=== PATIENT | male | born 1975 | race Caucasian/White ===

== ENCOUNTER 2023-03-14 09:34 | Emergency (ER) | payer OTHER, SELFPAY ==
[2023-03-14 09:44] VITALS: BP 129/99; PULSE 104; RESP 18; TEMP 36.1; O2SAT 6; BMI 23.4
[2023-03-14 09:52] VITALS: BP 129/99; PULSE 104; RESP 18; TEMP 36.7; O2SAT 96
[2023-03-14 11:31] VITALS: BP 133/95; PULSE 98; RESP 18; TEMP 36.7
--- NOTE | 2023-03-14 11:49 | ED_ITS ---
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 They are here because they do not really have any answers in his fatigue seems about the same in the last 48 hours he has had some nausea and some vomiting he has vomited up probably 4 times. No blood with the vomit this, no really abdominal pain associated with this and feels better after he throws up. Denies any change in his bowel habits there is no blood in his bowel habits, he has lost approximately 15 lb last 2 months. He does a lot of stress in his life both with his family and friends according to his , he drinks at least 3 beers per night, no use of drugs, he is being treated for hypertension, took 1 dose of Prilosec yesterday, and the aforementioned pravastatin. Denies any significant history of headaches, rashes, cough, dysuria frequency, joint swelling or pain, visual changes neurologic history of or tick bites. Related Data Home Medications Medication Instructions Recorded Confirmed lisinopril 10 mg tablet 10 mg PO DAILY 03/14/23 03/14/23 omeprazole magnesium 20 mg 20 mg PO DAILY 03/14/23 03/14/23 tablet,delayed release (Prilosec OTC) pravastatin 10 mg tablet 10 mg PO DAILY 03/14/23 03/14/23 Allergies Allergy/AdvReac Type Severity Reaction Status Date / Time EES Allergy Unknown Uncoded 03/14/23 09:51 Review of Systems Status of ROS: Reports: 10 or more systems reviewed and unremarkable except as noted in History and below PFSH PFS Social History Smoking Status: Former smoker Do you use any of these nicotine containing products: Vaping Products How often do you have a drink containing alcohol: 2-4 times a month How many standard drinks containing alcohol do you have on a typical day: 3 or 4 How often do you have six or more drinks on one occasion: Never AUDIT-C Alcohol total score: 3 Non-prescribed substance use: denies use service: No Exam Narrative: Exam Narrative: On examination he is in no apparent distress he follows my commands normally his vital signs are all stable, alert oriented x3 GCS is 15/15 pupils equal round reactive to light, there is no scleral icterus or redness, TMs bilaterally normal his oropharynx is a little bit reddened, but this is likely from vaping, which she does. There is no lymphadenopathy anterior posterior cervical changes, supraclavicular region axillary, or inguinal region. His chest is good air entry bilaterally with easy rise, there is no wheezing crackles noted heart sounds are normal, no clicks murmurs or gallops, his abdomen is soft there is absolutely no guarding no organomegaly bowel sounds are normal no hernias normal male genitalia normal testicles, he moves all extremities independently and well. Neurologically intact in his upper lower extremities, proximal distal is normal, slight tremors noted, but he tells me he has had that for a long time. Skin reveals no rashes. Const: Vital Signs, click to edit/add: Vital Signs - 24 hr 03/14/23 09:44 03/14/23 09:52 03/14/23 11:31 Temperature 97.0 F L 98.0 F 98.0 F Pulse Rate [Pulse Oximeter] 104 H 104 H 98 Respiratory Rate 18 18 18 Blood Pressure [Ri ght Upper Arm] 129/99 H 129/99 H 133/95 H Pulse Oximetry 6 L 96 Oxygen Delivery Me thod Room Air Room Air Course Course Hospital Course: Discussed with him and his , that I will do no further testing, his either really know what else to test for, in the emergency side situation, a follow-up with primary practice, or primary care is suggested, to go over some for other things, depression, fatigue, chronic fatigue, Lyme disease all can cause issues here, his thyroid was tested also new was normal. I do believe is alcohol cessation is strongly suggested rechecking his liver function tests in 2-3 weeks, would be appropriate. Vital Signs Vital signs: Initial Vital Signs Temperature 97.0 F L 03/14/23 09:44 Temperature Source Temporal Artery Scan 03/14/23 09:44 Pulse Rate 104 H 03/14/23 09:44 Pulse Rhythm Regular 03/14/23 09:44 Respiratory Rate 18 03/14/23 09:44 Blood Pressure 129/99 H 03/14/23 09:44 Blood Pressure Mean 109 H 03/14/23 09:44 Blood Pressure Position Sitting 03/14/23 09:44 Pulse Oximetry 6 L 03/14/23 09:44 Oxygen Delivery Method Room Air 03/14/23 09:44 Vital Signs Temperature 97.0 F L 03/14/23 09:44 Pulse Rate 104 H 03/14/23 09:44 Respiratory Rate 18 03/14/23 09:44 Blood Pressure 129/99 H 03/14/23 09:44 Pulse Oximetry 6 L 03/14/23 09:44 Oxygen Delivery Method Room Air 03/14/23 09:44 Temperature 98.0 F 03/14/23 11:31 Pulse Rate 98 03/14/23 11:31 Respiratory Rate 18 03/14/23 11:31 Blood Pressure 133/95 H 03/14/23 11:31 Pulse Oximetry 96 03/14/23 09:52 Oxygen Delivery Method Room Air 03/14/23 09:52 Medical Decision Making [facility] Narrative Medical decision making narrative: Life-threatening differential diagnosis considered include stroke, coronary artery disease, pneumonia, and heart failure. Other differential diagnosis include but are not limited to electrolyte imbalances, anemia, medication reactions, and urinary tract infection I reviewed his laboratory tests done yesterday in [facility] through his was able access is [facility]. His basic metabolic profile was normal, his EKG showed was otherwise normal, with a normal QT interval. He did not have evidence of Brugada syndrome which he tells me he was tested when he was young causes mother had that. I classically is a right bundle-branch block with elevation of V1 and V2 ST waves. His chest x-ray report was written is normal, he had normal hemoglobin normal white count, normal platelet count, his RDW was slightly low. His transaminases were elevated 3 times normal showing a ratio suggestive of alcohol. Medical Records Medical records reviewed: Yes I reviewed the patient's medical records Discharge Plan Discharge Clinical Impression: Fatigue, Unexplained weight loss, Acute alcoholic hepatitis Patient Disposition: Home w/ Parent or Adult Condition: Stable Instructions: Liver Disease Diet (DC), Liquids and Hydration for Athletes (ED), Fatigue (ED), Alcoholic Hepatitis (ED) Additional Instructions: So, recommendations are avoidance of alcohol because your ratio of your transaminases suggest that the liver is taking a hit from this. Your liver enzymes are 3 times normal. I would avoid alcohol and then recheck this in 2-3 weeks to see where you are. Recommend that she follow up with primary care, some of the other possibilities that we discussed include, depression, chronic fatigue syndrome, I do not see any evidence on examination cancer, but further follow-up will be needed. Use the Zofran as directed, the Prilosec 20 mg a day for the next month is also suggested Note for work written. Activity Level: Activity as Tolerated and Light activity Prescriptions: No Action pravastatin 10 mg tablet 10 mg PO DAILY lisinopril 10 mg tablet 10 mg PO DAILY omeprazole magnesium [Prilosec OTC] 20 mg tablet,delayed release (DR/EC) 20 mg PO DAILY Follow Up/Referrals: Dre Granger MD [Referring] - Jackelyn Granger MD [Referring] - Provider,Not a Local [Primary Care Provider] - Stand Alone Forms: [employer] Info Instructions
== END 2023-03-14 11:32 | disposition home or self-care (01) ==
PROVIDERS: Emergency Provider Family Medicine
DX: R53.83 Other fatigue (principal); K70.10 Alcoholic hepatitis without ascites
CPT/HCPCS: 99284

== ENCOUNTER 2023-03-17 08:37 | Observation (INO) | payer OTHER, SELFPAY ==
[2023-03-17] VITALS (29 sets, daily range): BP systolic 111–143; BP diastolic 68–96; PULSE 77–96; RESP 16–18; TEMP 36.5–37.2; O2SAT 94–99; BMI 23.4; BMI 23.9
--- NOTE | 2023-03-17 08:54 | ED_ITS ---
HPI - Dizziness General Time Seen by Provider: 08:54 Date Seen: 03/17/23 Chief Complaint: Dizziness/Vertigo Stated Complaint: dizzy, confused, numbness Time Seen by Provider: 03/17/23 08:54 Source: patient, RN notes reviewed and old records reviewed Mode of arrival: wheelchair Limitations: no limitations History of Present Illness HPI Narrative: Patient is a very pleasant 47-year-old gentleman with a history of longstanding alcohol use, recent unexplained weight loss, Brugada syndrome and fatigue who comes to the emergency room in [place] for continuing fatigue, tremulous limbs, and talking in his sleep as well as dizziness. Patient's notes that fatigue worsened on SaturdayMarch 12 where patient could not keep his eyes open. On SaturdayMarch 13 he was seen at [facility] at which time test showed an elevated thyroid as well as liver function tests. That night he began to experience vomiting and nausea any could not keep anything down. On March 14 he was seen here in the emergency room at [facility] at which time his liver function tests were reviewed with family. No medications or further testing was done at that time. Patient notes that he did receive Zofran in going home and that has certainly helped the vomiting and he has been able to keep p.o. down. Yesterday however he began experiencing whole body tremors and his said that he was having a hard time following conversations. She also noted that he was talking in his sleep which is unusual for him. Patient has also been hearing his call for him even though she has not. He denies any visual hallucinations. The belly pain that he had experienced last week has been improved with the use of Prilosec. Today however he does admit to diarrhea. Is main complaint today is dizziness when he is standing up. He does state that everything is moving when he stands up. He is also having a hard time walking because he feels so weak. Denies any specific side or limb weakness. No alcohol use since 08/13. Patient also notes that he has joint and whole body discomfort. He did take 1 THC gummy bear yesterday Related Data Home Medications Medication Instructions Recorded Confirmed lisinopril 10 mg tablet 10 mg PO DAILY 03/14/23 03/14/23 omeprazole magnesium 20 mg 20 mg PO DAILY 03/14/23 03/14/23 tablet,delayed release (Prilosec OTC) pravastatin 10 mg tablet 10 mg PO DAILY 03/14/23 03/14/23 Allergies Allergy/AdvReac Type Severity Reaction Status Date / Time erythromycin base Allergy Verified 03/17/23 08:49 Review of Systems Status of ROS: Reports: 10 or more systems reviewed and unremarkable except as noted in History and below Const: Reports: change in weight (15 lb weight loss); Denies: fever or chills Eyes: Denies: change in vision ENMT: Reports: vertigo; Denies: throat pain or difficulty swallowing Cardio: Denies: chest pain, swelling of feet/ankles or shortness of breath with exertion Resp: Denies: shortness of breath or cough GI: Reports: abdominal pain (Improved), nausea and diarrhea; Denies: vomiting, difficulty swallowing or blood in stool : Denies: painful urination Musculo: Reports: joint pain; Denies: back pain Integ/Breast: Denies: rash Neuro: Reports: weakness in extremities, lack of coordination, dizziness, vertigo, confusion, behavioral changes and difficulty communicating thoughts; Denies: headache or seizure-like activity Psych: Reports: change in sleep pattern and auditory hallucinations; Denies: visual hallucinations Endo: Denies: excessive urination PFSH PFSH Social History Smoking Status: Current some day smoker Do you use any of these nicotine containing products: Vaping Products Second hand tobacco smoke exposure: No How often do you have a drink containing alcohol: 4 or more times a week How many standard drinks containing alcohol do you have on a typical day: 5 or 6 How often do you have six or more drinks on one occasion: Weekly AUDIT-C Alcohol total score: 9 Non-prescribed substance use: denies use service: No Exam Narrative: Exam Narrative: Alert with a GCS of 15. Depend on his for giving us history. EOM is full with nystagmus in all planes. Pupils are equal round reactive. Head is atraumatic normocephalic. Oral cavity with moist mucous membranes. Palate rises symmetrically tongue is midline. Neck is supple without lymphadenopathy. Range of motion full. Heart with regular rate and rhythm. Lungs are clear bilaterally. Abdomen is soft nontender. Moving all extremities. There is tremulous type activity especially with the upper extremities. However upper extremity strength and motor is intact. Lower extremity strength and motor is intact. Romberg is negative. Able to lift both legs off the bed independently. Const: Vital Signs, click to edit/add: Vital Signs - 24 hr 03/17/23 08:50 Temperature 99 F Pulse Rate [Pulse Oximeter] 95 Respiratory Rate 18 Blood Pressure [Le ft Upper Arm] 124/88 Pulse Oximetry 96 Oxygen Delivery Me thod Room Air Documenting provider has reviewed patient's vital signs: yes Course Course Hospital Course: At this time differential diagnosis includes but is not limited to alcohol withdrawal, hepatitis, underlying infectious process. Will check CBC, comprehensive, CRP, lipase, ETOH, troponin and urinalysis. Will do EKG place IV give 1 L of normal saline, banana bag and 1 mg of Ativan. Reevaluation(s) Reevaluation #1: Patient feels that the Ativan has helped somewhat. Reevaluation #2: states that her has been saying he thought she was crying and then he thought water was dripping from the ceiling. Clearly we do have some visual hallucinations occurring at this time. Banana bag is hanging at this time. Will also give additional 1 mg IV Ativan. Vital signs reassuring with no tachycardia or hypertension at this time. Vital Signs Vital signs: Initial Vital Signs Temperature 99 F 03/17/23 08:50 Temperature Source Temporal Artery Scan 03/17/23 08:50 Pulse Rate 95 03/17/23 08:50 Pulse Rhythm Regular 03/17/23 08:50 Respiratory Rate 18 03/17/23 08:50 Blood Pressure 124/88 03/17/23 08:50 Blood Pressure Mean 100 03/17/23 08:50 Blood Pressure Position Supine 03/17/23 08:50 Pulse Oximetry 96 03/17/23 08:50 Oxygen Delivery Method Room Air 03/17/23 08:50 Vital Signs Temperature 99 F 03/17/23 08:50 Pulse Rate 95 03/17/23 08:50 Respiratory Rate 18 03/17/23 08:50 Blood Pressure 124/88 03/17/23 08:50 Pulse Oximetry 96 03/17/23 08:50 Oxygen Delivery Method Room Air 03/17/23 08:50 Temperature 99 F 03/17/23 08:50 Pulse Rate 95 03/17/23 08:50 Respiratory Rate 18 03/17/23 08:50 Blood Pressure 124/88 03/17/23 08:50 Pulse Oximetry 96 03/17/23 08:50 Oxygen Delivery Method Room Air 03/17/23 08:50 MDM - Dizziness MDM Narrative Medical decision making narrative: 1. Alcohol withdrawal-at this time patient now exhibiting some visual hallucinations. Will admitted to [facility]. Second dose of Ativan 1 mg to be given shortly. Banana bag is currently infusing. 2. Recent weight loss 3. Hepatitis -likely rated it laid to alcohol. Improvement of both AST ALT verses numbers from [facility] last week. Alk-phos has normalized. Lipase is normal. 4. Disposition-admit under the care of Dr. Diaz, hospitalist. Medical Records Attestation: I reviewed the patient's medical records. Lab Data Attestation: I reviewed the patient's lab results. Labs: Lab Results 03/17/23 03/17/23 Range/Units 09:30 09:35 WBC 7.38 (4.50-11.00) K/uL RBC 4.14 L (4.30-5.90) m/uL Hgb 14.0 (13.5-17.5) gm/dL Hct 41.8 (37.0-53.0) % MCV 101 H (80-100) fL MCH 34 (26-34) pg MCHC 34 (32-36) gm/dL RDW Coeff of Noah 10.7 L (11.5-15.5) % Plt Count 139 L (140-440) K/uL Neut % (Auto) 67.8 (42.0-72.0) % Lymph % (Auto) 17.6 L (20-44) % [place] % (Auto) 8.7 (0.0-11.0) % Eos % (Auto) 4.5 (0.0-7.0) % Baso % (Auto) 0.9 (0.0-3.0) % Neut # (Auto) 5.00 (1.7-7.0) K/uL Lymph # (Auto) 1.30 (0.90-2.90) K/uL [place] # (Auto) 0.60 (0.00-0.90) K/UL Eos # (Auto) 0.33 (0.00-0.50) K/uL Baso # (Auto) 0.07 (0.00-0.30) K/uL Abs Immat Gran (auto) 0.04 (0.00-0.30) K/uL Imm/Tot Granulo (auto) 0.5 % Sodium 138 (135-149) mmol/L Potassium 3.6 (3.6-5.1) mmol/L Chloride 101 (96-114) mmol/L Carbon Dioxide 28 (20-32) mmol/L BUN 12 (5-24) mg/dL Creatinine 0.8 (0.5-1.5) mg/dL Estimated Creat Clear 122.89 Estimated GFR 111 ml/min Glucose 97 (60-115) mg/dL Total Bilirubin 1.1 (0.1-1.5) mg/dL AST 137 H (12-35) U/L ALT 98 H (4-50) U/L Alkaline Phosphatase 106 (40-150) U/L Total Protein 8.0 (6.0-8.3) g/dL Albumin 4.6 (3.3-5.0) g/dL Lipase 169 (23-300) U/L Urine Color Yellow (Yellow) Urine Appearance Clear (Clear) Urine pH 6.0 (5.0-8.5) Ur Specific [place] >= 1.030 (1.000-1.030) Urine Protein Negative (Negative) Urine Glucose (UA) Negative (Negative) Urine Ketones Negative (Negative) Urine Blood Trace-intact A (Negative) Urine Nitrite Negative (Negative) Urine Bilirubin Negative (Negative) Urine Urobilinogen 0.2 (0.2-1.0) Ur Leukocyte Esterase Negative (Negative) Urine RBC 0-2 (0-2) Urine WBC 0-2 (0-5) Ur Squamous Epith Cells None (None-Few) Urine Bacteria None (None) Ethyl Alcohol < 0.01 L (0.01-0.03) % POC Troponin I 0.01 (0.01-0.04) ng/ml ECG Data Attestation: I personally reviewed and interpreted this ECG as follows: ECG interpretation date: 03/17/23 Interpretation: EKG by my read shows sinus rhythm at a rate of 84. No acute ST or T-wave changes are noted. Discharge Plan Discharge Prescriptions: No Action pravastatin 10 mg tablet 10 mg PO DAILY lisinopril 10 mg tablet 10 mg PO DAILY omeprazole magnesium [Prilosec OTC] 20 mg tablet,delayed release (DR/EC) 20 mg PO DAILY Follow Up/Referrals: Miguel Fan MD [Primary Care Provider] -
--- NOTE | 2023-03-17 09:26 | CRLHL7_ITS ---
For Patients: As a result of the Century Cures Act, medical imaging exams and procedure reports are released immediately into your electronic medical record. You may view this report before your referring provider. If you have questions, please contact your health care provider. INDICATION: Dizziness. TECHNIQUE: Noncontrast CT images acquired through the brain. COMPARISON: None. FINDINGS: The ventricles and sulci are within normal limits for patient age. No mass effect or midline shift. The bello white differentiation is maintained. No acute intracranial hemorrhage or pathologic extra-axial fluid collection. The globes are symmetric. The calvarium is intact. [id number] paranasal sinus mucosal thickening. The mastoid air cells are clear. IMPRESSION: No acute intracranial hemorrhage or mass effect. Please note that all CT scans at this facility use dose modulation, iterative reconstruction, and/or weight-based dosing when appropriate to reduce radiation dose to as low as reasonably achievable. Dictated by Jimmy Brand MD @ 03/17/2023 10:33:04 AM (Electronically Signed)
[2023-03-17 09:37] LABS: Appearance Urine Clear (Clear); Bilirubin Urine Negative (Negative); Blood Urine Trace-intact (Negative); Color Urine Yellow (Yellow); Glucose Urine Negative (Negative); Ketones Urine Negative (Negative); Leukocyte Esterase Urine Negative (Negative); Nitrite Urine Negative (Negative); Protein Urine Negative (Negative); Specific Gravity Urine >= 1.030 (1.000-1.030); Urobilinogen Urine 0.2 (0.2-1.0)
[2023-03-17 09:45] LABS: RBC Urine 0-2 (0-2); WBC Urine 0-2 (0-5)
[2023-03-17 09:49] LABS: Basophils Absolute Auto 0.07 K/uL (0.00-0.30); Basophils Percent Auto 0.9 % (0.0-3.0); Eosinophils Absolute Auto 0.33 K/uL (0.00-0.50); Eosinophils Percent Auto 4.5 % (0.0-7.0); Hematocrit 41.8 % (37.0-53.0); Immature Granulocytes Abs Auto 0.04 K/uL (0.00-0.30); Immature Granulocytes Pct Auto 0.5 %; Lymphocytes Percent Auto 17.6 % (20-44); Mean Corpuscular HGB Conc 34 gm/dL (32-36); Mean Corpuscular Hemoglobin 34 pg (26-34); Mean Corpuscular Volume 101 fL (80-100); Monocytes Percent Auto 8.7 % (0.0-11.0); Neutrophils Percent Auto 67.8 % (42.0-72.0); Platelet Count* 139 K/uL (140-440); RDW Coefficient of Variation % 10.7 % (11.5-15.5); Red Blood Count 4.14 m/uL (4.30-5.90); White Blood Count* 7.38 K/uL (4.50-11.00)
[2023-03-17] MEDS: 0.9 % SODIUM CHLORIDE 1000 ml 1,000 ML IV (09:50)
[2023-03-17] MEDS: LORazepam 2 MG/ML inj 1 MG IVP ×2 (09:52→11:32)
[2023-03-17 09:57] LABS: Slide Review Reflex No
[2023-03-17 10:00] LABS: Albumin* 4.6 g/dL (3.3-5.0); Chloride* 101 mmol/L (96-114); Potassium* 3.6 mmol/L (3.6-5.1); Sodium* 138 mmol/L (135-149)
[2023-03-17 10:03] LABS: Alkaline Phosphatase* 106 U/L (40-150); Aspartate Amino Transferase* 137 U/L (12-35); Bilirubin Total* 1.1 mg/dL (0.1-1.5); Blood Urea Nitrogen* 12 mg/dL (5-24); Carbon Dioxide* 28 mmol/L (20-32); Creatinine* 0.8 mg/dL (0.5-1.5); Est. Creatinine Clearance* 122.89; Estimated Glomerular Filt Rate 111 ml/min; Glucose* 97 mg/dL (60-115); Lipase* 169 U/L (23-300)
[2023-03-17 10:04] LABS: Alanine Aminotransferase* 98 U/L (4-50)
[2023-03-17 10:05] LABS: Ethanol* < 0.01 % (0.01-0.03)
[2023-03-17 10:07] LABS: Troponin, Point-of-Care* 0.01 ng/ml (0.01-0.04)
[2023-03-17] MEDS: PHENobarbitaL 32.4 MG TABLET 162 MG PO (15:48)
--- NOTE | 2023-03-17 15:52 | PM.IMHP1 ---
Hospitalist- H&P: DUANE History of Present Illness Date Seen: 03/17/23 Chief complaint: dizzy, confused, numbness Narrative: Jeovany Colon is a 47 year old male admitted through the emergency department for multiple acute and chronic symptoms. Patient gives his own history which is corroborated by his and she also gives additional details. Symptoms started about 3 months ago with prominent fatigue and also tremulousness primarily in his left hand. He has also had episodes of dizziness which he describes as a feeling that he is spinning. These are intermittent. He reports poor energy as well as a feeling that he needs more sleep. He has had on and off diarrhea which is nonbloody. He has occasionally been taking Pepto-Bismol for that with some benefit. This week he has developed non bloody vomiting after he eats. He is not having any abdominal pain. In the last few days he has had both auditory and visual hallucinations. He appears to be able to distinguish reality from not but does still report both visual and auditory hallucinations. While I was talking with him he did have some visual hallucinations, seeing a person in the corner of the room was not there. 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 He was seen in the emergency department in [place] 4 days ago. They did a number of blood tests which did not identify definite problem though he was seen to have elevated AST and ALT. He had no abdominal imaging associated with that. 3 days ago he was seen in our emergency department with similar findings. He was given Zofran for his vomiting and that seems to have resolved. He was also started on omeprazole. He normally drinks alcohol fairly heavily. His reports that he has at least 5 beers per day. He acknowledges that sometimes he is with his friends he will drink 8 or 9 beers. He denies any history of medical or legal problems with alcohol, previous treatment, previous alcohol withdrawal. He stop drinking alcohol 4 days ago. He does note that he had significant withdrawal symptoms the 1st 2 days but he feels like that is getting a little better now. Review of Systems Narrative: Multiple symptoms as noted above. Particular focus on fatigue, tremor, dizziness, diarrhea, vomiting and hallucinations. thinks that he has sleep apnea as he has fairly heavy as snoring. He denies visual disturbance, focal neurologic problems, respiratory problems such as shortness of breath or cough. He has had no chest pain and no syncope. No abdominal pain but nausea vomiting and diarrhea as noted above. No urinary problems. No edema. PFSH PFS Medical History (Updated 03/17/23 @ 16:19 by Abrahan Orozco MD) Alcohol use disorder ?F10.90 - Alcohol use, unspecified, uncomplicated (ICD-10) Weight loss ?R63.4 - Abnormal weight loss (ICD-10) Dizziness ?R42 - Dizziness and giddiness (ICD-10) Brugada syndrome ?I49.8 - Other specified cardiac arrhythmias (ICD-10) Nicotine abuse ?Z72.0 - Tobacco use (ICD-10) Hallucinations ?R44.3 - Hallucinations, unspecified (ICD-10) Diarrhea ?R19.7 - Diarrhea, unspecified (ICD-10) Family History (Updated 03/17/23 @ 16:08 by Abrahan Orozco MD) Mother Brugada syndrome Sister Brugada syndrome Father Diabetes High blood pressure Social History (Updated 03/17/23 @ 16:11 by Abrahan Orozco MD) Narrative: 47-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 He lives in [place] with his and 2 children ages 16 and 18. He vapes tobacco, 1 vape pen per week. This is approximately equivalent to 5 smoking 5 packs of cigarettes per week. He does not use cannabis or other recreational drugs. Alcohol consumption is daily with a variable amount, at least 5 beers per day up to 8 or 9. What is your current living situation?: I presently have a place to live Problems where you live: no known problems Problems where you live details: none In the past 12 months, utilities in danger of being shut off: no In the past 12 mos, have been you worried that your food would run out before you had money to buy more?: never true In the past 12 mos, the food you bought just didn't last and you didn't have money to buy more?: never true Highest level of school completed/degree received: Associate degree: occupational, technical, vocational program Smoking Status: Current some day smoker Do you use any of these nicotine containing products: Vaping Products Smokeless tobacco user details: Vapes Nicotine containing products detail: since October of 2022 Second hand tobacco smoke exposure: No How often do you have a drink containing alcohol: 4 or more times a week Alcohol type: beer and hard liquor Alcohol type details: gena to start then mostly beer 2-5 drinks a day How many standard drinks containing alcohol do you have on a typical day: 5 or 6 How often do you have six or more drinks on one occasion: Never AUDIT-C Alcohol total score: 6 Non-prescribed substance use: denies use Caffeine: Yes (2 diet MT dews a day) How often does anyone, including family, friends and others, physically hurt you: never How often does anyone, including family, friends and others, insult or talk down to you: never How often does anyone, including family, friends and others, threaten you with harm: never How often does anyone, including family, friends and others, scream or curse at you: never service: No Meds Home Medications and Allergies Home Medications Medication Instructions Recorded Confirmed Type lisinopril 10 mg tablet 10 mg PO DAILY 03/14/23 03/17/23 History omeprazole magnesium 20 mg 20 mg PO DAILY 03/14/23 03/17/23 History tablet,delayed release (Prilosec OTC) pravastatin 10 mg tablet 10 mg PO HS 03/14/23 03/17/23 History fenofibrate nanocrystallized 145 145 mg PO DAILY 03/17/23 03/17/23 History mg tablet Allergies Allergy/AdvReac Type Severity Reaction Status Date / Time erythromycin base Allergy Verified 03/17/23 08:49 Exam Narrative: Exam Narrative: He is alert and appears in no obvious distress. Mild fine intention tremor of his left hand. Minimal in his right hand. Is exacerbated with [id number] testing. Head is atraumatic. Eyes are normal. Pupils equal round react light. Extraocular movements are full. No facial asymmetry. Oropharynx is normal. Neck is supple without mass or adenopathy. Respirations are clear to auscultation. Breathing is unlabored. Cardiovascular: S1, S2, regular rate and rhythm. No murmur gallop or rub. Abdomen is soft without tenderness or mass. He does have some voluntary guarding. External genitalia normal. Extremities are normal. He has good perfusion, good pulses, no edema, normal full 5/5 strength in all 4 extremities. He struggles to follow instructions for [id number]. He has somewhat ataxic with his heel mayorga. He can stand for Romberg testing and feels quite unsteady and is quite wobbly on his feet but does not fall down. Const: Vital Signs, click to edit/add: Vital Signs - 24 hr 03/17/23 08:50 03/17/23 09:26 03/17/23 09:38 Temperature 99 F Pulse Rate 92 85 Pulse Rate [Pulse Oximeter] 95 Pulse Rate [Right Radial] Respiratory Rate 18 Blood Pressure Blood Pressure [Le ft Upper Arm] 124/88 Blood Pressure [Ri ght Arm] Pulse Oximetry 96 98 98 Oxygen Delivery Tn thod Room Air 03/17/23 09:40 03/17/23 09:45 03/17/23 10:00 Temperature Pulse Rate 91 87 88 Pulse Rate [Pulse Oximeter] Pulse Rate [Right Radial] Respiratory Rate 16 Blood Pressure 115/88 Blood Pressure [Le ft Upper Arm] Blood Pressure [Ri ght Arm] Pulse Oximetry 98 98 97 [facility] 03/17/23 10:02 03/17/23 10:18 03/17/23 10:30 Temperature Pulse Rate 93 86 83 Pulse Rate [Pulse Oximeter] Pulse Rate [Right Radial] Respiratory Rate 16 Blood Pressure 124/88 Blood Pressure [Le ft Upper Arm] Blood Pressure [Ri ght Arm] Pulse Oximetry 97 97 98 [facility] 03/17/23 10:31 03/17/23 10:45 03/17/23 11:00 Temperature Pulse Rate 85 83 83 Pulse Rate [Pulse Oximeter] Pulse Rate [Right Radial] Respiratory Rate 16 Blood Pressure 126/94 H Blood Pressure [Le ft Upper Arm] Blood Pressure [Ri ght Arm] Pulse Oximetry 98 97 96 [facility] 03/17/23 11:02 03/17/23 11:15 03/17/23 11:30 Temperature Pulse Rate 85 87 82 Pulse Rate [Pulse Oximeter] Pulse Rate [Right Radial] Respiratory Rate 16 Blood Pressure 131/89 Blood Pressure [Le ft Upper Arm] Blood Pressure [Ri ght Arm] Pulse Oximetry 96 97 96 [facility] 03/17/23 11:32 03/17/23 11:48 03/17/23 12:00 Temperature Pulse Rate 82 84 82 Pulse Rate [Pulse Oximeter] Pulse Rate [Right Radial] Respiratory Rate 16 Blood Pressure 131/93 H Blood Pressure [Le ft Upper Arm] Blood Pressure [Ri ght Arm] Pulse Oximetry 97 97 96 Oxygen Delivery Me thod Room Air 03/17/23 12:02 03/17/23 12:15 03/17/23 12:30 Temperature Pulse Rate 82 83 86 Pulse Rate [Pulse Oximeter] Pulse Rate [Right Radial] Respiratory Rate 16 Blood Pressure 130/68 Blood Pressure [Le ft Upper Arm] Blood Pressure [Ri ght Arm] Pulse Oximetry 98 96 95 Oxygen Delivery Me thod Room Air 03/17/23 12:33 03/17/23 14:10 03/17/23 14:10 Temperature 98.7 F Pulse Rate 87 Pulse Rate [Pulse Oximeter] Pulse Rate [Right Radial] 88 Respiratory Rate 16 16 16 Blood Pressure 140/96 H Blood Pressure [Le ft Upper Arm] Blood Pressure [Ri ght Arm] 143/92 H Pulse Oximetry 97 98 98 Oxygen Delivery Me thod Room Air Room Air Documenting provider has reviewed patient's vital signs: yes Hospitalist - H&P: Result Labs Labs: Short CBC 03/17/23 Range/Units 09:35 WBC 7.38 (4.50-11.00) K/uL Hgb 14.0 (13.5-17.5) gm/dL Hct 41.8 (37.0-53.0) % Plt Count 139 L (140-440) K/uL BMP 03/17/23 09:35 Sodium 138 Potassium 3.6 Chloride 101 Carbon Dioxide 28 BUN 12 Creatinine 0.8 Glucose 97 Liver Function 03/17/23 Range/Units 09:35 Total Bilirubin 1.1 (0.1-1.5) mg/dL AST 137 H (12-35) U/L ALT 98 H (4-50) U/L Alkaline Phosphatase 106 (40-150) U/L Albumin 4.6 (3.3-5.0) g/dL Urine 03/17/23 Range/Units 09:30 Urine Color Yellow (Yellow) Urine Appearance Clear (Clear) Urine pH 6.0 (5.0-8.5) Ur Specific Sandy >= 1.030 (1.000-1.030) Urine Protein Negative (Negative) Urine Glucose (UA) Negative (Negative) Assessment and Plan Assessment and plan (1) Vomiting: Problem comment: Possibly due to alcoholic hepatitis. Nonbloody. No abdominal pain. Better in the last couple days. Right upper quadrant ultrasound Status: Acute (2) Diarrhea: Problem comment: This is been going on 2-3 months. Nonbloody. No abdominal pain. Continue to monitor while he works on abstinence from alcohol. Continue to monitor Status: Acute (3) Acute alcoholic hepatitis: Problem comment: Right upper quadrant ultrasound, absence from alcohol, outpatient follow-up Status: Acute (4) Hallucinations: Problem comment: Patient and report both visual and auditory hallucinations. New in the last several days. 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 I suspect some chronic tremor exacerbated by alcohol withdrawal. Recommend abstinence from alcohol Status: Acute (6) Alcohol withdrawal: Problem comment: It sounds like his alcohol withdrawal symptoms and at abnormal vitals were more prominent 4 days ago and her now getting better. Other than hallucinations he appears to be relatively stable. Will use phenobarb and CIWA protocol with lorazepam to monitor and manage Status: Acute (7) Unexplained weight loss: Problem comment: Ongoing outpatient evaluation Status: Acute (8) Fatigue: Problem comment: Outpatient follow-up Status: Acute (9) Nicotine abuse: Problem comment: He reports using 1 vape pen per week. His tells me that that is the equivalent of smoking 5 packs of cigarettes per week in nicotine use Status: Acute (10) Dizziness: Problem comment: He describes vertigo but exhibits ataxia and cerebellar dysfunction. I favor alcohol as a cause for this. Recommend abstinence Status: Acute (11) Alcohol use disorder: Problem comment: I recommend absence from alcohol and I recommend professional help for this. His knows resources for this as problems with alcohol run in her family. Status: Acute Plan Patient is admitted the hospital for monitoring of hallucinations and vomiting presumably related to alcohol withdrawal and alcoholic hepatitis. Continue to monitor and management in the hospital. Anticipate discharge to home with his Total time spent today is 80 minutes, 50 minutes in coordination of care and discussion with patient and and other providers ongoing management of complications of alcohol use disorder
[2023-03-17] MEDS: LORazepam 1 MG TABLET PO ×2 (16:02→19:40)
--- NOTE | 2023-03-17 16:15 | PC.NURSE ---
Patient arrived via stretcher to CCU3 on med/surg @ 1240 pm. RN changed pt into gown from street clothing. Admission assessment and VS completed. Alison attentive and supportive at bedside. Pt impulsive, disoriented to place. CIWA 9, however no ativan provided since pt was awaiting eval by hospitalist. Pt tolerated regular diet w/o difficulty and sat in the chair for lunch. Pt needs stool sample collected. SBA of one d/to tremors and unsteady gait. Dr. Orozco in to evaluate pt between 1420 and 1445 pm. New orders pending. Banana bag to SL, no further IV fluids ordered. Report to Michelle REICH for evening shift.
[2023-03-17] MEDS: THIAMINE 100 MG TABLET 250 MG PO (20:19)
[2023-03-17] MEDS: SODIUM CHLORIDE 0.9 % (FLUSH) 10 ML SYRINGE 5 ML IVF (20:21)
[2023-03-17] MEDS: PHENobarbitaL 130 MG in 0.9 % SODIUM CHLORIDE 100 ml 100 ML 204 MG IVPB (23:52)
[2023-03-18 01:16] VITALS: BP 124/94; PULSE 79; RESP 16; TEMP 36.9; O2SAT 98
--- NOTE | 2023-03-18 05:18 | PC.NURSE ---
Pt up IND in room and voiding. No BM this night. Tremors in hands extended. Pt able to sleep. Cooperative. NPO as of midnight. Reporting zero pain. Tele NSR.
[2023-03-18 06:56] LABS: Basophils Absolute Auto 0.05 K/uL (0.00-0.30); Basophils Percent Auto 0.7 % (0.0-3.0); Eosinophils Percent Auto 5.5 % (0.0-7.0); Hematocrit 41.8 % (37.0-53.0); Immature Granulocytes Abs Auto 0.03 K/uL (0.00-0.30); Immature Granulocytes Pct Auto 0.4 %; Lymphocytes Absolute Auto 1.53 K/uL (0.90-2.90); Mean Corpuscular HGB Conc 34 gm/dL (32-36); Mean Corpuscular Hemoglobin 35 pg (26-34); Mean Corpuscular Volume 103 fL (80-100); Monocytes Percent Auto 8.5 % (0.0-11.0); Neutrophils Absolute Auto 4.64 K/uL (1.7-7.0); Neutrophils Percent Auto 63.9 % (42.0-72.0); RDW Coefficient of Variation % 10.8 % (11.5-15.5); Red Blood Count 4.05 m/uL (4.30-5.90); White Blood Count* 7.27 K/uL (4.50-11.00)
[2023-03-18 07:36] LABS: Albumin* 4.6 g/dL (3.3-5.0)
[2023-03-18 07:39] LABS: Alanine Aminotransferase* 88 U/L (4-50); Alkaline Phosphatase* 99 U/L (40-150); Aspartate Amino Transferase* 93 U/L (12-35); Bilirubin Direct* 0.2 mg/dL (0.0-0.5); Bilirubin Total* 0.7 mg/dL (0.1-1.5); Total Protein* 7.4 g/dL (6.0-8.3)
[2023-03-18 07:46] VITALS: BP 121/92; PULSE 86; RESP 16; TEMP 36.5; O2SAT 97
[2023-03-18 07:48] VITALS: BP 121/92; PULSE 86; RESP 16; TEMP 36.5; O2SAT 97
[2023-03-18 07:51] LABS: Platelet Count* 300 K/uL (140-440)
--- NOTE | 2023-03-18 09:29 | P.DS_ITS ---
DS: Providers Provider Date Seen: 03/18/23 Date of admission: 03/17/23 12:58 Primary care physician: Miguel Fan MD Admitting Clinician: Tarsha Mcarthur MD Consults: 03/17/23 14:28 Consult to Occupational Therapy [CONS] Routine Comment: Reason(s) for OT Consult:: Evaluate and Treat Any Restrictions?:: See Comment Attending Physician on discharge: Darwin Orozco MD Date of Discharge: 03/18/23 DS: Diagnosis Discharge Diagnosis (1) Alcohol use disorder: Status: Acute Problem details: I recommend absence from alcohol and I recommend professional help for this. His knows resources for this as problems with alcohol run in her family. (2) Weight loss: Status: Acute (3) Dizziness: Status: Acute Problem details: He describes vertigo but exhibits ataxia and cerebellar dysfunction. I favor alcohol as a cause for this. Recommend abstinence (4) Nicotine abuse: Status: Acute Problem details: He reports using 1 vape pen per week. His tells me that that is the equivalent of smoking 5 packs of cigarettes per week in nicotine use (5) Hallucinations: Status: Acute Problem details: Patient and report both visual and auditory hallucinations. New in the last several days. 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 No hallucinations since admission. (6) Diarrhea: Status: Acute Problem details: This is been going on 2-3 months. Nonbloody. No abdominal pain. Continue to monitor while he works on abstinence from alcohol. Continue to monitor (7) Vomiting: Status: Acute Problem details: Possibly due to alcoholic hepatitis. Nonbloody. No abdominal pain. Better in the last couple days. Right upper quadrant ultrasound (8) Tremor: Status: Acute Problem details: Tremor starting in his left hand about 3 months ago but has become more generalized and worse well he has appeared to go through some alcohol withdrawal this week. I suspect some chronic tremor exacerbated by alcohol withdrawal. Recommend abstinence from alcohol. Modestly better with treatment of alcohol withdrawal (9) Alcohol withdrawal: Status: Acute Problem details: It sounds like his alcohol withdrawal symptoms and at abnormal vitals were more prominent 4 days ago and her now getting better. Other than hallucinations he appears to be relatively stable. Will use phenobarb and CIWA protocol with lorazepam to monitor and manage (10) Acute alcoholic hepatitis: Status: Acute Problem details: Right upper quadrant ultrasound shows fatty liver. Recommend absence from alcohol, outpatient follow-up (11) Unexplained weight loss: Status: Acute Problem details: Reassess after abstinence from alcohol for a month (12) Fatigue: Status: Acute Problem details: Reassess after abstinence from alcohol for a month (13) Depression: Status: Acute Problem details: Patient verbalized concern about depression and requested antidepressant medication. 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 He was having nausea and vomiting, tremulousness, fatigue, anxiety, dizziness, hallucinations. He is admitted the hospital overnight. He did receive a small dose of phenobarbital and a few doses of lorazepam. All of the above symptoms improved. He is eating normally without nausea vomiting. Tremulousness is improved. He has had no further hallucinations. Status at Discharge Functional status at discharge: independent ambulation Overall status at discharge: patient is progressing back to baseline Time Spent with Patient Time attestation: Total time spent providing and/or coordinating discharge services: Time spent: Greater than 30 minutes Exam Narrative: Exam Narrative: He is alert appears in no distress. He is oriented to circumstances. Speech is normal. Respirations are clear to auscultation. Cardiovascular: S1, S2, regular rate and rhythm. No murmur gallop or rub. Abdomen: Bowel sounds active. Abdomen is soft without tenderness or mass. He is very very mild fine tremor in his hands at rest. Mild ataxia from yesterday is improved. Const: Vital Signs, click to edit/add: Vital Signs - 24 hr 03/17/23 09:38 03/17/23 09:40 03/17/23 09:45 Temperature Pulse Rate 85 91 87 Pulse Rate [Right Radial] Respiratory Rate 16 Blood Pressure 115/88 Blood Pressure [Ri ght Arm] Pulse Oximetry 98 98 98 Oxygen Delivery Me thod Room Air 03/17/23 10:00 03/17/23 10:02 03/17/23 10:18 Temperature Pulse Rate 88 93 86 Pulse Rate [Right Radial] Respiratory Rate 16 Blood Pressure 124/88 Blood Pressure [Ri ght Arm] Pulse Oximetry 97 97 97 Oxygen Delivery Me thod Room Air 03/17/23 10:30 03/17/23 10:31 03/17/23 10:45 Temperature Pulse Rate 83 85 83 Pulse Rate [Right Radial] Respiratory Rate 16 Blood Pressure 126/94 H Blood Pressure [Ri ght Arm] Pulse Oximetry 98 98 97 Oxygen Delivery Me thod Room Air 03/17/23 11:00 03/17/23 11:02 03/17/23 11:15 Temperature Pulse Rate 83 85 87 Pulse Rate [Right Radial] Respiratory Rate 16 Blood Pressure 131/89 Blood Pressure [Ri ght Arm] Pulse Oximetry 96 96 97 Oxygen Delivery Me thod Room Air 03/17/23 11:30 03/17/23 11:32 03/17/23 11:48 Temperature Pulse Rate 82 82 84 Pulse Rate [Right Radial] Respiratory Rate 16 Blood Pressure 131/93 H Blood Pressure [Ri ght Arm] Pulse Oximetry 96 97 97 Oxygen Delivery Me thod Room Air 03/17/23 12:00 03/17/23 12:02 03/17/23 12:15 Temperature Pulse Rate 82 82 83 Pulse Rate [Right Radial] Respiratory Rate 16 Blood Pressure 130/68 Blood Pressure [Ri ght Arm] Pulse Oximetry 96 98 96 Oxygen Delivery Me thod Room Air 03/17/23 12:30 03/17/23 12:33 03/17/23 14:10 Temperature Pulse Rate 86 87 Pulse Rate [Right Radial] Respiratory Rate 16 16 Blood Pressure 140/96 H Blood Pressure [Ri ght Arm] Pulse Oximetry 95 97 98 Oxygen Delivery Me thod Room Air Room Air 03/17/23 14:10 03/17/23 15:55 03/17/23 16:05 Temperature 98.7 F 97.7 F Pulse Rate 89 Pulse Rate [Right Radial] 88 82 Respiratory Rate 16 18 Blood Pressure Blood Pressure [Ri ght Arm] 143/92 H 121/87 Pulse Oximetry 98 95 Oxygen Delivery Me thod Room Air 03/17/23 19:11 03/17/23 19:46 03/17/23 22:36 Temperature 98.6 F 98.6 F 98 F Pulse Rate Pulse Rate [Right Radial] 96 96 77 Respiratory Rate 16 16 16 Blood Pressure Blood Pressure [Ri ght Arm] 132/95 H 132/95 H 111/83 Pulse Oximetry 99 99 94 Oxygen Delivery Me thod Room Air Room Air Room Air 03/17/23 22:37 03/18/23 01:16 03/18/23 07:46 Temperature 98.5 F 97.7 F Pulse Rate Pulse Rate [Right Radial] 77 79 86 Respiratory Rate 16 16 16 Blood Pressure Blood Pressure [Ri ght Arm] 124/94 H 121/92 H Pulse Oximetry 98 97 Oxygen Delivery Me thod Room Air Room Air 03/18/23 07:48 Temperature 97.7 F Pulse Rate Pulse Rate [Right Radial] 86 Respiratory Rate 16 Blood Pressure Blood Pressure [Ri ght Arm] 121/92 H Pulse Oximetry 97 Oxygen Delivery Me thod Room Air Documenting provider has reviewed patient's vital signs: yes DS: Data Data Completed and Pending Labs on day of discharge: Labs from last 24 hours 03/18/23 03/17/23 03/17/23 06:38 14:16 09:35 WBC 7.27 7.38 RBC 4.05 L 4.14 L Hgb 14.0 14.0 Hct 41.8 41.8 MCV 103 H 101 H MCH 35 H 34 MCHC 34 34 RDW Coeff of Noah 10.8 L 10.7 L Plt Count 300 139 L Neut % (Auto) 63.9 67.8 Lymph % (Auto) 21.0 17.6 L [place] % (Auto) 8.5 8.7 Eos % (Auto) 5.5 4.5 Baso % (Auto) 0.7 0.9 Neut # (Auto) 4.64 5.00 Lymph # (Auto) 1.53 1.30 [place] # (Auto) 0.60 0.60 Eos # (Auto) 0.40 0.33 Baso # (Auto) 0.05 0.07 Abs Immat Gran (auto) 0.03 0.04 Imm/Tot Granulo (auto) 0.4 0.5 Sodium 138 Potassium 3.6 Chloride 101 Carbon Dioxide 28 BUN 12 Creatinine 0.8 Estimated Creat Clear 122.89 Estimated GFR 111 Glucose 97 Magnesium 2.0 Total Bilirubin 0.7 1.1 Direct Bilirubin 0.2 AST 93 H 137 H ALT 88 H 98 H Alkaline Phosphatase 99 106 Total Protein 7.4 8.0 Albumin 4.6 4.6 Lipase 169 Urine Color Urine Appearance Urine pH Ur Specific [place] Urine Protein Urine Glucose (UA) Urine Ketones Urine Blood Urine Nitrite Urine Bilirubin Urine Urobilinogen Ur Leukocyte Esterase Urine RBC Urine WBC Ur Squamous Epith Cells Urine Bacteria Ethyl Alcohol < 0.01 L Hepatitis A IgM Ab Pending Hep Bs Antigen Pending Hep B Core IgM Ab Pending Hep C Ab Index (DAMIR) Pending Hep C Ab Interp DAMIR Pending Hepatitis Interpret Pending Lab Acknowledgement Test Added POC Troponin I 0.01 03/17/23 09:30 WBC RBC Hgb Hct MCV MCH MCHC RDW Coeff of Noah Plt Count Neut % (Auto) Lymph % (Auto) [place] % (Auto) Eos % (Auto) Baso % (Auto) Neut # (Auto) Lymph # (Auto) [place] # (Auto) Eos # (Auto) Baso # (Auto) Abs Immat Gran (auto) Imm/Tot Granulo (auto) Sodium Potassium Chloride Carbon Dioxide BUN Creatinine Estimated Creat Clear Estimated GFR Glucose Magnesium Total Bilirubin Direct Bilirubin AST ALT Alkaline Phosphatase Total Protein Albumin Lipase Urine Color Yellow Urine Appearance Clear Urine pH 6.0 Ur Specific [place] >= 1.030 Urine Protein Negative Urine Glucose (UA) Negative Urine Ketones Negative Urine Blood Trace-intact A Urine Nitrite Negative Urine Bilirubin Negative Urine Urobilinogen 0.2 Ur Leukocyte Esterase Negative Urine RBC 0-2 Urine WBC 0-2 Ur Squamous Epith Cells None Urine Bacteria None Ethyl Alcohol Hepatitis A IgM Ab Hep Bs Antigen Hep B Core IgM Ab Hep C Ab Index (DAMIR) Hep C Ab Interp DAMIR Hepatitis Interpret Lab Acknowledgement POC Troponin I Imaging US - abdomen: My impression: Indication: Vomiting. Elevated transaminases. Technique: Sonography of the abdomen was performed limited to the structures discussed below Comparison: None Findings: Gallbladder wall thickness is normal at 2.2 millimeters. There is no sludge, calculus or pericholecystic fluid collection. There is no sonographic Garcia`s sign. The visualized portions of the aorta and cava appear normal. The right kidney was unremarkable in size and appearance. The right kidney measures 11.4 x 4.9 x 6.0 centimeters. The common bile duct measures 4 millimeters which is normal The pancreas is partially obscured by bowel gas. The portions visualized appear normal The liver is normal in size. Echogenicity is abnormally increased in a pattern that is usually due to fatty infiltration. No focal mass or biliary ductal dilation Impression: 1. Abnormal hepatic echogenicity in a pattern most consistent with fatty infiltration. No ultrasound-evident focal mass or biliary ductal dilation. 2. The common duct measures 4 millimeters which is normal 3. Normal appearing gallbladder. Dictated by Lan Haro MD @ 03/18/2023 7:52:44 AM Discharge Plan Discharge Disposition: Home, Self-Care Date of Admission: 03/17/23 12:58 Attending Provider on Discharge: Abrahan Orozco Primary Care Provider: Miguel Fan Condition: Improved Anticipated Discharge Date/Time: 03/18/23 10:00 Discharge Medications: New escitalopram oxalate 10 mg tablet 10 mg PO DAILY Qty: 30 0RF Continued pravastatin 10 mg tablet 10 mg PO HS lisinopril 10 mg tablet 10 mg PO DAILY omeprazole magnesium [Prilosec OTC] 20 mg tablet,delayed release (DR/EC) 20 mg PO DAILY fenofibrate nanocrystallized 145 mg tablet 145 mg PO DAILY Discharge Orders: Discharge Order (Routine); Ordered 03/18/23 Ordered By: Abrahan Orozco Additional Instructions: During his hospital stay we have identified a number of problems that are caused from or made worse from drinking alcohol. These include hepatitis or inflammation, tremor, alcohol withdrawal, dizziness, fatigue. To help these problems get better and to avoid future serious complications I recommend you stop drinking alcohol. I encourage you to engage in outpatient treatment for alcohol abuse. I expect most of your symptoms will improve with 1 month of abstinence from alcohol. Activity Level: No Restrictions Discharge Diet: Regular Follow Up Appointments: Miguel Fan MD [Primary Care Provider] - 03/25/23 2:45 pm ([facility][Note 3] for follow-up.) Forms: [employer] Info Instructions
[2023-03-18 09:45] LABS: Slide Review Reflex No
[2023-03-18] MEDS: FOLIC ACID 1 MG TABLET PO (10:02)
[2023-03-18] MEDS: MULTIVITAMIN/MINERALS 1 TABLET 1 TAB PO (10:02)
[2023-03-18] MEDS: THIAMINE 100 MG TABLET 250 MG PO (10:02)
[2023-03-18] MEDS: lisinopriL 10 MG TABLET PO (10:02)
[2023-03-18 11:00] VITALS: BP 132/95; PULSE 94; RESP 18; TEMP 36.6; O2SAT 98
[2023-03-18 11:01] VITALS: BMI 23.8
--- NOTE | 2023-03-18 11:41 | PC.NURSE ---
Pt alert and oriented. Pt independent in room. Pt on regular diet and tolerated well. Pt's IV removed at 10am; catheter intact. Pt had no complaints of pain. Pt discharging home with .
--- NOTE | 2023-03-18 14:55 | CRLHL7_ITS ---
For Patients: As a result of the Cures Act, medical imaging exams and procedure reports are released immediately into your electronic medical record. You may view this report before your referring provider. If you have questions, please contact your health care provider. Indication: Vomiting. Elevated transaminases. Technique: Sonography of the abdomen was performed limited to the structures discussed below Comparison: None Findings: Gallbladder wall thickness is normal at 2.2 millimeters. There is no sludge, calculus or pericholecystic fluid collection. There is no sonographic Garcia`s sign. The visualized portions of the aorta and cava appear normal. The right kidney was unremarkable in size and appearance. The right kidney measures 11.4 x 4.9 x 6.0 centimeters. The common bile duct measures 4 millimeters which is normal The pancreas is partially obscured by bowel gas. The portions visualized appear normal The liver is normal in size. Echogenicity is abnormally increased in a pattern that is usually due to fatty infiltration. No focal mass or biliary ductal dilation Impression: 1. Abnormal hepatic echogenicity in a pattern most consistent with fatty infiltration. No ultrasound-evident focal mass or biliary ductal dilation. 2. The common duct measures 4 millimeters which is normal 3. Normal appearing gallbladder. Dictated by Lan Haro MD @ 03/18/2023 7:52:44 AM (Electronically Signed)
[2023-03-19 20:09] LABS: Hep A Ab, IgM Negative (Negative); Hep B Core Ab, IgM Negative (Negative); Hep B Surface Antigen Negative (Negative); Hep C Ab by CIA Index 0.08 IV; Hep C Ab by CIA Interp Negative (Negative)
[2023-03-21 18:10] LABS: Calcium* 9.5 mg/dL (8.4-10.6)
== END 2023-03-18 11:40 | disposition home or self-care (01) ==
LOC: ED 11:35 → MEDSURG 12:59
PROVIDERS: Family Medicine; Admitting Provider Family Medicine; Emergency Provider Family Medicine; PCP Family Medicine; Visit Provider Family Medicine
DX: K70.10 Alcoholic hepatitis without ascites (principal); K70.0 Alcoholic fatty liver; F10.932 Alcohol use, unspecified with withdrawal with perceptual disturbance; R63.4 Abnormal weight loss; Z68.23 Body mass index [BMI] 23.0-23.9, adult; G32.81 Cerebellar ataxia in diseases classified elsewhere; K21.9 Gastro-esophageal reflux disease without esophagitis; I49.8 Other specified cardiac arrhythmias; Z72.0 Tobacco use; R19.7 Diarrhea, unspecified; R11.10 Vomiting, unspecified; R44.0 Auditory hallucinations; R44.1 Visual hallucinations; R25.1 Tremor, unspecified; R53.83 Other fatigue; F32.A Depression, unspecified; I10 Essential (primary) hypertension; R53.1 Weakness; R27.9 Unspecified lack of coordination; M79.10 Myalgia, unspecified site
CPT/HCPCS: 36415; 70450; 76705; 80053; 80074; 80076; 81001; 82077; 83690; 83735; 84484; 85025; 87045; 87046; 87427; 93005; 96361; 96365; 96366; 96367; 96375; 96376; 97165; 97535; 99285; G0378; A9153; A9270; J2060; J2560; J3411; J7030

== ENCOUNTER 2023-06-12 11:05 | Emergency (ER) | payer OTHER, SELFPAY ==
--- NOTE | 2023-06-12 11:09 | CRLHL7_ITS ---
For Patients: As a result of the Century Cures Act, medical imaging exams and procedure reports are released immediately into your electronic medical record. You may view this report before your referring provider. If you have questions, please contact your health care provider. INDICATION: Hit head on pipe and fall. Loss of consciousness. TECHNIQUE: CT head without contrast. COMPARISON: Head CT 03/17/2023 FINDINGS: CSF spaces: Within normal limits for age. Brain parenchyma: The bello-white differentiation is normal. No sign of mass, hemorrhage, or midline shift. Skull base and calvarium: Mucosal thickening paranasal sinuses. The visualized orbits are grossly unremarkable. No skull fractures. IMPRESSION: Unremarkable noncontrast head CT. Please note that all CT scans at this facility use dose modulation, iterative reconstruction, and/or weight-based dosing when appropriate to reduce radiation dose to as low as reasonably achievable. Dictated by Yosi Arellano MD @ 06/12/2023 12:13:25 PM (Electronically Signed)
[2023-06-12 11:14] VITALS: BP 144/102; PULSE 85; RESP 18; TEMP 36.8; O2SAT 97; BMI 26.5
--- NOTE | 2023-06-12 11:17 | ED_ITS ---
HPI - General Adult General Chief complaint: Head Injury/Pain Stated complaint: Hit on head, lost consciousness Time Seen by Provider: 06/12/23 11:09 History of Present Illness HPI narrative: Patient is a 48-year-old white male whose chart is reviewed, he has had a history of no prior head injury, and was at work today not wearing protective head gear and hit into a object at work and has some abrasions to the left frontal parietal area of his head as well as he felt he was knocked down and briefly ?knocked out?. He feels fine at this time although he does have a mild headache over the area that he was contused on the left frontal parietal area, he denies neck pain denies back pain denies any injury. He is vision is normal his speech is normal. The patient has had hypertension, alcoholic hepatitis, depression. He is not certain when his last tetanus shot will check on that for him He has no neurologic complaints. Specifically no neck pain Related Data Home Medications Medication Instructions Recorded Confirmed lisinopril 10 mg tablet 10 mg PO DAILY 03/14/23 04/11/23 omeprazole magnesium 20 mg 20 mg PO DAILY 03/14/23 04/11/23 tablet,delayed release (Prilosec OTC) pravastatin 10 mg tablet 10 mg PO HS 03/14/23 04/11/23 fenofibrate nanocrystallized 145 145 mg PO DAILY 03/17/23 04/11/23 mg tablet Previous Rx's Medication Instructions Recorded escitalopram oxalate 10 mg tablet 10 mg PO DAILY #30 tabs 06/10/23 Allergies Allergy/AdvReac Type Severity Reaction Status Date / Time erythromycin base Allergy Verified 04/11/23 13:28 Review of Systems Status of ROS: Reports: 6 or more systems reviewed and unremarkable except as noted in History and below [facility] Medical History Hepatitis ?K75.9 - Inflammatory liver disease, unspecified (ICD-10) 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 ?K70.0 - Alcoholic fatty liver (ICD-10) Alcohol use disorder ?F10.90 - Alcohol use, unspecified, uncomplicated (ICD-10) Weight loss ?R63.4 - Abnormal weight loss (ICD-10) Dizziness ?R42 - Dizziness and giddiness (ICD-10) Brugada syndrome ?I49.8 - Other specified cardiac arrhythmias (ICD-10) Nicotine abuse ?Z72.0 - Tobacco use (ICD-10) Hallucinations ?R44.3 - Hallucinations, unspecified (ICD-10) Diarrhea ?R19.7 - Diarrhea, unspecified (ICD-10) Surgical History History of nasal surgery ?Z98.890 - Other specified postprocedural states (ICD-10) Family History Mother Brugada syndrome Sister Brugada syndrome Father Diabetes High blood pressure Social History Narrative: 47-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 He lives in [place] with his and 2 children ages 16 and 18. He vapes tobacco, 1 vape pen per week. This is approximately equivalent to 5 smoking 5 packs of cigarettes per week. He does not use cannabis or other recreational drugs. Alcohol consumption is daily with a variable amount, at least 5 beers per day up to 8 or 9. What is your current living situation?: I presently have a place to live Problems where you live: no known problems Problems where you live details: none In the past 12 months, utilities in danger of being shut off: no In past 12 months, lack of transportation kept you from medical appts, meetings, work, or getting things needed for daily living: no In the past 12 mos, have been you worried that your food would run out before you had money to buy more?: never true In the past 12 mos, the food you bought just didn't last and you didn't have money to buy more?: never true Highest level of school completed/degree received: Associate degree: occupational, technical, vocational program Smoking Status: Current some day smoker Do you use any of these nicotine containing products: Vaping Products Smokeless tobacco user details: Vapes Nicotine containing products detail: since October of 2022 Second hand tobacco smoke exposure: No How often do you have a drink containing alcohol: 4 or more times a week Alcohol type: beer and hard liquor Alcohol type details: gena to start then mostly beer 2-5 drinks a day How many standard drinks containing alcohol do you have on a typical day: 5 or 6 How often do you have six or more drinks on one occasion: Never AUDIT-C Alcohol total score: 6 Non-prescribed substance use: denies use Caffeine: Yes (2 diet MT dews a day) How often does anyone, including family, friends and others, physically hurt you : never How often does anyone, including family, friends and others, insult or talk down to you: never How often does anyone, including family, friends and others, threaten you with harm: never How often does anyone, including family, friends and others, scream or curse at you: never Little interest or pleasure in doing things: several days Feeling down, depressed, or hopeless: not at all service: No Exam Narrative: Exam Narrative: Objective: Patient is alert orient x3 no distress Ambulates normally He has got couple of linear abrasions to his left frontal parietal area with some soft tissue swelling. 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 Const: Vital Signs, click to edit/add: Vital Signs - 24 hr 06/12/23 11:14 06/12/23 11:37 06/12/23 12:16 Temperature 98.3 F Pulse Rate 86 Pulse Rate [Pulse Oximeter] 85 Respiratory Rate 18 Blood Pressure 136/100 H Blood Pressure [Le ft Upper Arm] 144/102 H Pulse Oximetry 97 96 Oxygen Delivery Me thod Room Air Course Vital Signs Vital signs: Initial Vital Signs Temperature 98.3 F 06/12/23 11:14 Temperature Source Temporal Artery Scan 06/12/23 11:14 Pulse Rate 85 06/12/23 11:14 Respiratory Rate 18 06/12/23 11:14 Blood Pressure 144/102 H 06/12/23 11:14 Blood Pressure Mean 116 H 06/12/23 11:14 Blood Pressure Position Supine 06/12/23 11:14 Pulse Oximetry 97 06/12/23 11:14 Oxygen Delivery Method Room Air 06/12/23 11:14 Vital Signs Temperature 98.3 F 06/12/23 11:14 Pulse Rate 85 06/12/23 11:14 Respiratory Rate 18 06/12/23 11:14 Blood Pressure 144/102 H 06/12/23 11:14 Pulse Oximetry 97 06/12/23 11:14 Oxygen Delivery Method Room Air 06/12/23 11:14 Temperature 98.3 F 06/12/23 11:14 Pulse Rate 86 06/12/23 12:16 Respiratory Rate 18 06/12/23 11:14 Blood Pressure 136/100 H 06/12/23 11:37 Pulse Oximetry 96 06/12/23 12:16 Oxygen Delivery Method Room Air 06/12/23 11:14 Medical Decision Making MDM Narrative Medical decision making narrative: 48-year-old male hit his head got knocked down and briefly might have passed out. The patient I think at this point should get a head CT scan as he still has a headache and he had transient loss of consciousness by his report. If this is negative then observation light activity for the next week and follow up with primary care at that time would be appropriate. Tylenol as needed for discomfort. Will check on his tetanus status. Neurologically appears intact at this point he is not on any blood thinners. Please see addendum Addendum 12:16 p.m.: The patient's head CT is read as negative. Light activity today and off work today, light activity work for the next 5 days, recheck with primary care in the next week. Tylenol as needed for discomfort, return sooner problems or concerns. Discharge Plan Discharge Clinical Impression: Closed head injury, Abrasion Patient Disposition: Home, Self-Care Condition: Stable Additional Instructions: Off work today, light activity for the next 5 days, recheck with her regular doctor at that time, Tylenol as needed for discomfort, return if problems or concerns. Activity Level: Light activity Discharge Diet: Regular Prescriptions: No Action pravastatin 10 mg tablet 10 mg PO HS lisinopril 10 mg tablet 10 mg PO DAILY omeprazole magnesium [Prilosec OTC] 20 mg tablet,delayed release (DR/EC) 20 mg PO DAILY fenofibrate nanocrystallized 145 mg tablet 145 mg PO DAILY escitalopram oxalate 10 mg tablet 10 mg PO DAILY Qty: 30 0RF Follow Up/Referrals: Miguel Fan MD [Primary Care Provider] - Stand Alone Forms: [employer] Info Instructions
--- NOTE | 2023-06-12 11:28 | ED.NURSE ---
TDap noted in [facility] to be 08/11/2015.
[2023-06-12 11:37] VITALS: BP 136/100
[2023-06-12 12:16] VITALS: PULSE 86; O2SAT 96
--- NOTE | 2023-06-12 12:16 | ED.NURSE ---
Assessed patient at this time, remains neurologically intact.
== END 2023-06-12 12:29 | disposition home or self-care (01) ==
PROVIDERS: Emergency Provider Family Medicine; PCP Family Medicine
DX: S00.91XA Abrasion of unspecified part of head, initial encounter (principal); W22.8XXA Striking against or struck by other objects, initial encounter
CPT/HCPCS: 70450; 99283; 99284; 99291; G0390

== ENCOUNTER 2023-06-14 08:50 | Outpatient (CLI) | payer OTHER, SELFPAY | END 2023-06-14 08:51 | disposition home or self-care (01) | LOC: NFLDREF 06-21 09:32 | PROVIDERS: PCP Family Medicine; Visit Provider Family Medicine | DX: E78.1 Pure hyperglyceridemia (principal); K70.10 Alcoholic hepatitis without ascites | CPT/HCPCS: 80053; 80061 ==

== ENCOUNTER 2023-06-16 18:12 | Inpatient (IN) | payer OTHER, SELFPAY ==
[2023-06-16 18:23] VITALS: BP 135/92; PULSE 109; RESP 22; TEMP 36.7; O2SAT 96; BMI 26.1
--- NOTE | 2023-06-16 18:38 | ED_ITS ---
HPI - General Adult General Date Seen: 06/16/23 Chief complaint: Abdominal Pain Stated complaint: vomiting for 2 days, was in here wed for head inj Time Seen by Provider: 06/16/23 18:30 Source: patient and family Mode of arrival: ambulatory Limitations: no limitations History of Present Illness HPI narrative: Patient is a 48-year-old male with a history of alcohol use disorder and fatty liver as well as alcoholic hepatitis and alcohol withdrawal. Presents today with his for evaluation of upper abdominal pain and vomiting which has been present since yesterday. He says he is not able to keep anything down. He is vomiting stomach contents and he says there is some brown ?sediment in it. Denies diarrhea, black or bloody stools. Has not had a fever that he is aware of. Was seen here last Saturday after closed head injury, CT was negative at that time. Does not complain of severe headache although he does have a little bit of headache. He states that he has not had any alcohol in 4 months. He denies a history of pancreatitis, does note a history of high triglycerides. No abdominal surgeries, vapes tobacco, denies other substances. Related Data Home Medications Medication Instructions Recorded Confirmed lisinopril 10 mg tablet 10 mg PO DAILY 03/14/23 04/11/23 omeprazole magnesium 20 mg 20 mg PO DAILY 03/14/23 04/11/23 tablet,delayed release (Prilosec OTC) pravastatin 10 mg tablet 10 mg PO HS 03/14/23 04/11/23 fenofibrate nanocrystallized 145 145 mg PO DAILY 03/17/23 04/11/23 mg tablet Previous Rx's Medication Instructions Recorded escitalopram oxalate 10 mg tablet 10 mg PO DAILY #30 tabs 06/10/23 Allergies Allergy/AdvReac Type Severity Reaction Status Date / Time erythromycin base Allergy Verified 06/16/23 19:06 Review of Systems Status of ROS: Reports: 10 or more systems reviewed and unremarkable except as noted in History and below [facility] Medical History Hepatitis ?K75.9 - Inflammatory liver disease, unspecified (ICD-10) 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 ?K70.0 - Alcoholic fatty liver (ICD-10) Alcohol use disorder ?F10.90 - Alcohol use, unspecified, uncomplicated (ICD-10) Weight loss ?R63.4 - Abnormal weight loss (ICD-10) Dizziness ?R42 - Dizziness and giddiness (ICD-10) Brugada syndrome ?I49.8 - Other specified cardiac arrhythmias (ICD-10) Nicotine abuse ?Z72.0 - Tobacco use (ICD-10) Hallucinations ?R44.3 - Hallucinations, unspecified (ICD-10) Diarrhea ?R19.7 - Diarrhea, unspecified (ICD-10) Surgical History History of nasal surgery ?Z98.890 - Other specified postprocedural states (ICD-10) Family History Mother Brugada syndrome Sister Brugada syndrome Father Diabetes High blood pressure Social History Narrative: 47-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 He lives in [place] with his and 2 children ages 16 and 18. He vapes tobacco, 1 vape pen per week. This is approximately equivalent to 5 smoking 5 packs of cigarettes per week. He does not use cannabis or other recreational drugs. Alcohol consumption is daily with a variable amount, at least 5 beers per day up to 8 or 9. What is your current living situation?: I presently have a place to live Problems where you live: no known problems Problems where you live details: none In the past 12 months, utilities in danger of being shut off: no In past 12 months, lack of transportation kept you from medical appts, meetings, work, or getting things needed for daily living: no In the past 12 mos, have been you worried that your food would run out before you had money to buy more?: never true In the past 12 mos, the food you bought just didn't last and you didn't have money to buy more?: never true Highest level of school completed/degree received: Associate degree: occup ational, technical, vocational program Smoking Status: Current some day smoker Do you use any of these nicotine containing products: Vaping Products Smokeless tobacco user details: Vapes Nicotine containing products detail: since October of 2022 Second hand tobacco smoke exposure: No How often do you have a drink containing alcohol: 4 or more times a week Alcohol type: beer and hard liquor Alcohol type details: gena to start then mostly beer 2-5 drinks a day How many standard drinks containing alcohol do you have on a typical day: 5 or 6 How often do you have six or more drinks on one occasion: Never AUDIT-C Alcohol total score: 6 Non-prescribed substance use: denies use Caffeine: Yes (2 diet MT dews a day) How often does anyone, including family, friends and others, physically hurt you : never How often does anyone, including family, friends and others, insult or talk down to you: never How often does anyone, including family, friends and others, threaten you with harm: never How often does anyone, including family, friends and others, scream or curse at you: never Little interest or pleasure in doing things: several days Feeling down, depressed, or hopeless: not at all service: No Exam Narrative: Exam Narrative: Vital signs as noted above. In general, an alert, nontoxic male, looks uncomfortable. He is sort of writhing around in bed. Head: Normocephalic, atraumatic. Eyes: Pupils are equal reactive. Extraocular movements are full. No signifi cant icterus. ENT: Mucous membranes are somewhat dry. Breath smells somewhat ketotic. Neck: Supple without lymphadenopathy. Heart: Tachycardic and regular without murmur. Lungs: Clear bilaterally. No increased work of breathing, crackles or wheezes. Abdomen: Nondistended with diffuse tenderness and some guarding in the mid upper abdomen. Extremities: Well perfused. No edema. No calf tenderness. Pulses intact. Neurologic: Patient is alert and oriented to person and place. Speech is fluent. Face is symmetric. Moves all extremities equally. Affect: Normal. Skin: Warm and dry. Well perfused. Const: Vital Signs, click to edit/add: Vital Signs - 24 hr 06/16/23 18:23 Temperature 98.1 F Pulse Rate [Pulse Oximeter] 109 H Respiratory Rate 22 Blood Pressure [Ri ght Upper Arm] 135/92 H Pulse Oximetry 96 Oxygen Delivery Me thod Room Air Documenting provider has reviewed patient's vital signs: yes Course Course ED Course: Patient presents with abdominal pain and vomiting. He does have history of recent head injury but had a negative CT, and has significant abdominal pain. I do not think the vomiting is likely coming secondary to the head injury but more likely related to something going on in the abdomen. Diagnostic considerations include pancreatitis, cholecystitis or biliary colic, gastritis, peptic ulcer disease or perforated viscus, obstruction, diverticulitis among others. Will place an IV, give fluids, morphine, Zofran. Routine labs to include venous gas and lactate as well as blood alcohol. CT of the abdomen with contrast. Patient's labs notable for significant lactic acidosis with a lactate of 6.3. Venous gas showed a normal pH initially, pCO2 was depressed, suggesting compensated metabolic acidosis. Bicarb was 16. Other notable labs were normal lipase of 88, LFTs with an elevation of AST but a normal ALT, bilirubin and alk- phos. Troponin was less than 0.01, CRP is less than 0.5, but blood alcohol is 0.2. I did initially do a type and screen given that he was reporting some brown sediment in his emesis but his hemoglobin is normal. I discussed his blood alcohol level with him in private as his seems to be under the impression that he has not had any alcohol for 4 months. He tells me that he was drinking all day yesterday, he was vomiting throughout the day as well but continued to drink until the evening. He says his last drink was yesterday evening. He does have a history of some withdrawal symptoms but says this does not feel like withdrawal to him, he denies any tremulousness, headache, or other symptoms aside from the vomiting. We did discuss his alcohol use, I told him that I have significant concerns both with his level of tolerance as well as the fact that he is hiding his use from his . He has never sought alcohol treatment, but did say that 4 months ago he decided that he should stop drinking. Recommended that he seek formal treatment. He says his father in law has been sober for 30 years, is in AA sponsor, and will talk with him. Notes that his own father is an alcoholic as well. Patient had 2 L of normal saline, he says he feels significantly better, does look more comfortable, but I recheck labs in lipase is only mildly improved to 5.3, gas actually looks a little bit worse with a pH of 7.31 and bicarb is slightly worse as well. Recommended him that he stay overnight for continued hydration and trending of labs. CT scan by my review did not show any significant findings, radiologist notes mild gastritis/duodenitis and incidental kidney stones. I have ordered lactated Ringer's for maintenance fluid and 40 mg of Protonix, patient is accepted to the hospitalist service. Likely will need medication for withdrawal at some point but is not at this time showing symptoms. Vital Signs Vital signs: Initial Vital Signs Temperature 98.1 F 06/16/23 18:23 Temperature Source Temporal Artery Scan 06/16/23 18:23 Pulse Rate 109 H 06/16/23 18:23 Pulse Rhythm Regular 06/16/23 18:23 Respiratory Rate 22 06/16/23 18:23 Blood Pressure 135/92 H 06/16/23 18:23 Blood Pressure Mean 106 H 06/16/23 18:23 Blood Pressure Position Supine 06/16/23 18:23 Pulse Oximetry 96 06/16/23 18:23 Oxygen Delivery Method Room Air 06/16/23 18:23 Vital Signs Temperature 98.1 F 06/16/23 18:23 Pulse Rate 109 H 06/16/23 18:23 Respiratory Rate 22 06/16/23 18:23 Blood Pressure 135/92 H 06/16/23 18:23 Pulse Oximetry 96 06/16/23 18:23 Oxygen Delivery Method Room Air 06/16/23 18:23 Temperature 98.1 F 06/16/23 18:23 Pulse Rate 109 H 06/16/23 18:23 Respiratory Rate 22 06/16/23 18:23 Blood Pressure 135/92 H 06/16/23 18:23 Pulse Oximetry 96 06/16/23 18:23 Oxygen Delivery Method Room Air 06/16/23 18:23 Medications Administered Medications: Generic Name Dose Route Start Last Admin Trade Name Freq PRN Reason Stop Dose Admin Sodium Chloride 1,000 mls @ 1,000 mls/hr 06/16/23 18:45 06/16/23 19:44 0.9 % Sodium Chloride 1000 Ml IV 06/16/23 19:44 Infused .Q1H HUMBERTO Infusion Sodium Chloride 1,000 mls @ 1,000 mls/hr 06/16/23 20:15 06/16/23 20:04 0.9 % Sodium Chloride 1000 Ml IV 06/16/23 21:14 Infused .Q1H HUMBERTO Infusion Morphine Sulfate 4 mg 06/16/23 18:35 06/16/23 18:53 Morphine 4 Mg/Ml Inj IVP 06/16/23 18:36 4 mg ONCE ONE Administration Ondansetron HCl 4 mg 06/16/23 18:35 06/16/23 18:54 Ondansetron 2 Mg/Ml Inj IVP 06/16/23 18:36 4 mg ONCE ONE Administration Medical Decision Making Lab Data Labs: Lab Results 06/16/23 06/16/23 Range/Units 18:50 20:20 WBC 10.36 (4.50-11.00) K/uL RBC 5.14 (4.30-5.90) m/uL Hgb 16.9 (13.5-17.5) gm/dL Hct 48.9 (37.0-53.0) % MCV 95 (80-100) fL MCH 33 (26-34) pg MCHC 35 (32-36) gm/dL RDW Coeff of Noah 11.2 L (11.5-15.5) % Plt Count 244 (140-440) K/uL Neut % (Auto) 80.5 H (42.0-72.0) % Lymph % (Auto) 14.4 L (20-44) % [place] % (Auto) 4.3 (0.0-11.0) % Eos % (Auto) 0.2 (0.0-7.0) % Baso % (Auto) 0.3 (0.0-3.0) % Neut # (Auto) 8.30 H (1.7-7.0) K/uL Lymph # (Auto) 1.50 (0.90-2.90) K/uL [place] # (Auto) 0.40 (0.00-0.90) K/UL Eos # (Auto) 0.02 (0.00-0.50) K/uL Baso # (Auto) 0.03 (0.00-0.30) K/uL Abs Immat Gran (auto) 0.03 (0.00-0.30) K/uL Imm/Tot Granulo (auto) 0.3 % VBG pH 7.373 7.318 L (7.32-7.43) VBG pCO2 30 L 32 L (40-50) mmHG VBG pO2 59.4 H 71.0 H (25-47) mmHG VBG HCO3 17 L 16 L (21-28) mmol/L Sodium 142 (135-149) mmol/L Potassium 3.6 (3.6-5.1) mmol/L Chloride 99 (96-114) mmol/L Carbon Dioxide 14 L (20-32) mmol/L Anion Gap 29 H (7-15) mEq/L BUN 14 (5-24) mg/dL Creatinine 0.9 (0.5-1.5) mg/dL Estimated Creat Clear 108.07 Estimated GFR 106 ml/min Glucose 91 (60-115) mg/dL Lactate 6.3 H* 5.3 H* (0.5-1.9) mmol/L Calcium 9.5 (8.4-10.6) mg/dL Total Bilirubin 0.8 (0.1-1.5) mg/dL Direct Bilirubin 0.2 (0.0-0.5) mg/dL AST 63 H (12-35) U/L ALT 46 (4-50) U/L Alkaline Phosphatase 111 (40-150) U/L Troponin I < 0.01 L (0.01-0.04) ng/mL C-Reactive Protein < 0.5 L (0.5-1.0) mg/dL Total Protein 9.0 H (6.0-8.3) g/dL Albumin 5.5 H (3.3-5.0) g/dL Lipase 88 (23-300) U/L Ethyl Alcohol 0.21 H (0.01-0.03) % Blood Type O Positive Antibody Screen NEGATIVE Discharge Plan Discharge Clinical Impression: Acute alcoholic gastritis, Alcoholic ketoacidosis Patient Disposition: Admitted As Observation Condition: Improved
--- NOTE | 2023-06-16 18:42 | CRLHL7_ITS ---
For Patients: As a result of the Century Cures Act, medical imaging exams and procedure reports are released immediately into your electronic medical record. You may view this report before your referring provider. If you have questions, please contact your health care provider. INDICATION: Nausea and vomiting for 2 days COMPARISON: None. TECHNIQUE: CT of the abdomen and pelvis after the administration of intravenous contrast. Multiplanar axial, coronal, and sagittal reformats were reconstructed. Contrast: x mL Omnipaque 300 intravenously. Oral contrast was not administered. FINDINGS: Lung bases: Normal. Liver: Hepatic steatosis. Mild hepatomegaly. Superimposed focal very low-density lesion in the anterior left lobe of the liver has fluid density and is probably a small cyst. No worrisome mass see. Normal vasculature. Gallbladder and biliary tree: Normal gallbladder. No biliary duct dilation. Pancreas: Normal. Spleen: Normal. Normal size. Adrenal glands: Normal. No nodules. Kidneys and bladder: Normal size and position. No cyst or mass. Few punctate nonobstructing urinary tract calculi. No urinary tract dilation. The urinary bladder is normal. GI: Mild gastric mucosal hyperenhancement without any gastric wall thickening. Mild proximal duodenal mucosal hyperenhancement without any thickening. No ulceration or perforation.. No dilated segments. No abnormal bowel wall thickening or hyperenhancement. Small stool burden. The appendix is normal. Vessels: Aorta and major branches, including the mesenteric vessels: Patent. Normal caliber. No atherosclerotic plaques. IVC and tributaries: Normal. Mesenteric and portal veins: Normal. Peritoneum: No free fluid. Lymph nodes: No adenopathy. Pelvis: Physiologic appearance of the reproductive organs. Bones: No fractures. No focal bone lesions. Normal for age. Abdominal wall: Normal. IMPRESSION: 1. Mild gastritis and duodenitis. 2. Hepatic steatosis. 3. Bilateral nonobstructing urinary tract calculi. Please note that all CT scans at this facility use dose modulation, iterative reconstruction, and/or weight-based dosing when appropriate to reduce radiation dose to as low as reasonably achievable. Dictated by Franci Lamas MD @ 06/16/2023 8:28:48 PM (Electronically Signed)
[2023-06-16] MEDS: MORPHINE 4 MG/ML INJ IVP (18:53)
[2023-06-16] MEDS: 0.9 % SODIUM CHLORIDE 1000 ml 1,000 ML IV ×2 (18:54→19:50)
[2023-06-16] MEDS: ONDANSETRON 2 MG/ML inj 4 MG IVP ×2 (18:54→23:25)
[2023-06-16 18:56] LABS: HCO3 VBG 17 mmol/L (21-28); PCO2 VBG 30 mmHG (40-50); PO2 VBG 59.4 mmHG (25-47); pH VBG 7.373 (7.32-7.43)
[2023-06-16 18:58] LABS: Lactate Sepsis w/Reflex* 6.3 mmol/L (0.5-1.9)
[2023-06-16 18:59] LABS: Basophils Absolute Auto 0.03 K/uL (0.00-0.30); Basophils Percent Auto 0.3 % (0.0-3.0); Eosinophils Absolute Auto 0.02 K/uL (0.00-0.50); Eosinophils Percent Auto 0.2 % (0.0-7.0); Hematocrit 48.9 % (37.0-53.0); Hemoglobin* 16.9 gm/dL (13.5-17.5); Immature Granulocytes Abs Auto 0.03 K/uL (0.00-0.30); Immature Granulocytes Pct Auto 0.3 %; Lymphocytes Percent Auto 14.4 % (20-44); Mean Corpuscular HGB Conc 35 gm/dL (32-36); Mean Corpuscular Hemoglobin 33 pg (26-34); Mean Corpuscular Volume 95 fL (80-100); Monocytes Percent Auto 4.3 % (0.0-11.0); Neutrophils Percent Auto 80.5 % (42.0-72.0); Platelet Count* 244 K/uL (140-440); RDW Coefficient of Variation % 11.2 % (11.5-15.5); Red Blood Count 5.14 m/uL (4.30-5.90); White Blood Count* 10.36 K/uL (4.50-11.00)
[2023-06-16 19:01] LABS: Slide Review Reflex No
[2023-06-16 19:16] LABS: Chloride* 99 mmol/L (96-114); Potassium* 3.6 mmol/L (3.6-5.1); Sodium* 142 mmol/L (135-149)
[2023-06-16 19:17] LABS: Albumin* 5.5 g/dL (3.3-5.0)
[2023-06-16 19:18] LABS: Creatinine* 0.9 mg/dL (0.5-1.5); Est. Creatinine Clearance* 108.07; Estimated Glomerular Filt Rate 106 ml/min
[2023-06-16 19:19] LABS: Anion Gap 29 mEq/L (7-15); Blood Urea Nitrogen* 14 mg/dL (5-24); Carbon Dioxide* 14 mmol/L (20-32); Glucose* 91 mg/dL (60-115)
[2023-06-16 19:20] LABS: Alanine Aminotransferase* 46 U/L (4-50); Alkaline Phosphatase* 111 U/L (40-150); Aspartate Amino Transferase* 63 U/L (12-35); Bilirubin Direct* 0.2 mg/dL (0.0-0.5); Bilirubin Total* 0.8 mg/dL (0.1-1.5); Calcium* 9.5 mg/dL (8.4-10.6); Lipase* 88 U/L (23-300)
[2023-06-16 19:21] LABS: Ethanol* 0.21 % (0.01-0.03)
[2023-06-16 19:26] LABS: C Reactive Protein* < 0.5 mg/dL (0.5-1.0)
[2023-06-16 19:59] LABS: Troponin I* < 0.01 ng/mL (0.01-0.04)
[2023-06-16 20:25] LABS: HCO3 VBG 16 mmol/L (21-28); PCO2 VBG 32 mmHG (40-50); pH VBG 7.318 (7.32-7.43)
[2023-06-16 20:26] LABS: Lactate* 5.3 mmol/L (0.5-1.9)
[2023-06-16 20:47] LABS: Chloride* 103 mmol/L (96-114); Sodium* 139 mmol/L (135-149)
--- NOTE | 2023-06-16 20:48 | ED.NURSE ---
Report given to med/Surg, pt transporting at this time with all belongings.
[2023-06-16 20:50] LABS: Anion Gap 22 mEq/L (7-15); Blood Urea Nitrogen* 13 mg/dL (5-24); Carbon Dioxide* 14 mmol/L (20-32); Creatinine* 0.8 mg/dL (0.5-1.5); Est. Creatinine Clearance* 121.58; Estimated Glomerular Filt Rate 110 ml/min; Glucose* 87 mg/dL (60-115)
--- NOTE | 2023-06-16 20:58 | P.IMHP_ITS ---
Hospitalist- H&P: HPI History of Present Illness Date Seen: 06/16/23 Chief complaint: vomiting for 2 days Narrative: Jeovany Colon is a 48 year old male with history of alcohol use disorder presents with onset of intractable vomiting yesterday morning, 1 and half days prior to admission. Patient reports prior to that he was generally doing well. He woke yesterday morning and has been recurrently vomiting since then. In the attempt to take in p.o. fluid or food he has been vomiting afterwards. The emesis is mostly yellowish in color but he reports brown specks in the emesis. Associated with vomiting he has had mid abdominal pain. He did have a normal bowel movement yesterday which was normal brown color and not diarrhea. No melena or hematochezia. No urinary problems. No previous abdominal surgery. No infectious exposures. He reports that he has been struggling to cut back on drinking since his admission in February for complications of alcohol use. He reports very severe anxiety as he has been trying to cut back on his drinking. Review of Systems Narrative: Patient reports prominent anxiety with attempts to cut back on alcohol and now symptoms in the last day and half. Other than that he reports no other health concerns. He was seen couple days ago for head injury. He is not having any headache and a small abrasion on his left forehead appears to be healing well. 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 ?K70.0 - Alcoholic fatty liver (ICD-10) Alcohol use disorder ?F10.90 - Alcohol use, unspecified, uncomplicated (ICD-10) Weight loss ?R63.4 - Abnormal weight loss (ICD-10) Dizziness ?R42 - Dizziness and giddiness (ICD-10) Brugada syndrome ?I49.8 - Other specified cardiac arrhythmias (ICD-10) Nicotine abuse ?Z72.0 - Tobacco use (ICD-10) Hallucinations ?R44.3 - Hallucinations, unspecified (ICD-10) Diarrhea ?R19.7 - Diarrhea, unspecified (ICD-10) Surgical History History of nasal surgery ?Z98.890 - Other specified postprocedural states (ICD-10) Family History Mother Brugada syndrome Sister Brugada syndrome Father Diabetes High blood pressure Social History (Updated 06/16/23 @ 21:05 by Abrahan Orozco MD) Narrative: 47-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 He lives in [place] with his and 2 children ages 16 and 18. He vapes tobacco, 1 vape pen per week. This is approximately equivalent to 5 smoking 5 packs of cigarettes per week. He does not use cannabis or other recreational drugs. Alcohol consumption is daily with a variable amount, at least 5 beers per day up to 8 or 9. He is present in the hospital with his who appears to be very supportive of him getting help for alcohol withdrawal. He is motivated to get help as well. What is your current living situation?: I presently have a place to live Problems where you live: no known problems Problems where you live details: none In the past 12 months, utilities in danger of being shut off: no In past 12 months, lack of transportation kept you from medical appts, meetings, work, or getting things needed for daily living: no In the past 12 mos, have been you worried that your food would run out before you had money to buy more?: never true In the past 12 mos, the food you bought just didn't last and you didn't have money to buy more?: never true Highest level of school completed/degree received: Associate degree: occupational, technical, vocational program Smoking Status: Current some day smoker Do you use any of these nicotine containing products: Vaping Products Smokeless tobacco user details: Vapes Nicotine containing products detail: since October of 2022 Second hand tobacco smoke exposure: No How often do you have a drink containing alcohol: 4 or more times a week Alcohol type: beer and hard liquor Alcohol type details: gena to start then mostly beer 2-5 drinks a day How many standard drinks containing alcohol do you have on a typical day: 5 or 6 How often do you have six or more drinks on one occasion: Never AUDIT-C Alcohol total score: 6 Non-prescribed substance use: denies use Caffeine: Yes (2 diet MT dews a day) How often does anyone, including family, friends and others, physically hurt you : never How often does anyone, including family, friends and others, insult or talk down to you: never How often does anyone, including family, friends and others, threaten you with harm: never How often does anyone, including family, friends and others, scream or curse at you: never Little interest or pleasure in doing things: several days Feeling down, depressed, or hopeless: not at all service: No Meds Home Medications and Allergies Home Medications Medication Instructions Recorded Confirmed Type lisinopril 10 mg tablet 10 mg PO DAILY 03/14/23 04/11/23 History omeprazole magnesium 20 mg 20 mg PO DAILY 03/14/23 04/11/23 History tablet,delayed release (Prilosec OTC) pravastatin 10 mg tablet 10 mg PO HS 03/14/23 04/11/23 History fenofibrate nanocrystallized 145 145 mg PO DAILY 03/17/23 04/11/23 History mg tablet Home Medication Comments: He stop taking omeprazole a couple weeks ago Allergies Allergy/AdvReac Type Severity Reaction Status Date / Time erythromycin base Allergy Verified 06/16/23 19:06 Exam Narrative: Exam Narrative: He is alert and appears in no distress. He has a fine tremor in his hands. He is oriented to his circumstances and gives his own history corroborated by his . Head is notable for a small abrasion on the left forehead which is healing well. No other trauma. Eyes normal. Oropharynx normal. Neck is supple without mass or adenopathy. Respirations are clear to auscultation. Breathing is unlabored. Cardiovascular: S1, S2, regular tachycardia. Abdomen is soft. Bowel sounds are present. He has mild diffuse abdominal tenderness. Extremities without edema good peripheral pulses. Fine tremor in both hands. Const: Vital Signs, click to edit/add: Vital Signs - 24 hr 06/16/23 18:23 Temperature 98.1 F Pulse Rate [Pulse Oximeter] 109 H Respiratory Rate 22 Blood Pressure [Ri ght Upper Arm] 135/92 H Pulse Oximetry 96 Oxygen Delivery Me thod Room Air Documenting provider has reviewed patient's vital signs: yes Hospitalist - H&P: Result Labs Labs: Short CBC 06/16/23 Range/Units 18:50 WBC 10.36 (4.50-11.00) K/uL Hgb 16.9 (13.5-17.5) gm/dL Hct 48.9 (37.0-53.0) % Plt Count 244 (140-440) K/uL BMP 06/16/23 06/16/23 18:50 20:20 Sodium 142 139 Potassium 3.6 4.0 Chloride 99 103 Carbon Dioxide 14 L 14 L BUN 14 13 Creatinine 0.9 0.8 Glucose 91 87 Calcium 9.5 8.0 L Cardiac Enzymes 06/16/23 Range/Units 18:50 Troponin I < 0.01 L (0.01-0.04) ng/mL Liver Function 06/16/23 Range/Units 18:50 Total Bilirubin 0.8 (0.1-1.5) mg/dL Direct Bilirubin 0.2 (0.0-0.5) mg/dL AST 63 H (12-35) U/L ALT 46 (4-50) U/L Alkaline Phosphatase 111 (40-150) U/L Albumin 5.5 H (3.3-5.0) g/dL Imaging CT scan - abdomen: Radiologist's impression: INDICATION: Nausea and vomiting for 2 days COMPARISON: None. TECHNIQUE: CT of the abdomen and pelvis after the administration of intravenous contrast. Multiplanar axial, coronal, and sagittal reformats were reconstructed. Contrast: x mL Omnipaque 300 intravenously. Oral contrast was not administered. FINDINGS: Lung bases: Normal. Liver: Hepatic steatosis. Mild hepatomegaly. Superimposed focal very low-density lesion in the anterior left lobe of the liver has fluid density and is probably a small cyst. No worrisome mass see. Normal vasculature. Gallbladder and biliary tree: Normal gallbladder. No biliary duct dilation. Pancreas: Normal. Spleen: Normal. Normal size. Adrenal glands: Normal. No nodules. Kidneys and bladder: Normal size and position. No cyst or mass. Few punctate nonobstructing urinary tract calculi. No urinary tract dilation. The urinary bladder is normal. GI: Mild gastric mucosal hyperenhancement without any gastric wall thickening. Mild proximal duodenal mucosal hyperenhancement without any thickening. No ulceration or perforation.. No dilated segments. No abnormal bowel wall thickening or hyperenhancement. Small stool burden. The appendix is normal. Vessels: Aorta and major branches, including the mesenteric vessels: Patent. Normal caliber. No atherosclerotic plaques. IVC and tributaries: Normal. Mesenteric and portal veins: Normal. Peritoneum: No free fluid. Lymph nodes: No adenopathy. Pelvis: Physiologic appearance of the reproductive organs. Bones: No fractures. No focal bone lesions. Normal for age. Abdominal wall: Normal. IMPRESSION: 1. Mild gastritis and duodenitis. 2. Hepatic steatosis. 3. Bilateral nonobstructing urinary tract calculi. Assessment and Plan Assessment and plan (1) Alcoholic ketoacidosis: Problem comment: D5 LR for fluid resuscitation. Status: Acute (2) Acute alcoholic gastritis: Problem comment: Restart PPI. Monitor hemoglobin. 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 His knows resources for this as problems with alcohol run in her family. He is open to getting professional treatment. Recommend starting naltrexone Status: Acute (5) Alcohol withdrawal: Problem comment: Previous admission in February 2023 had alcohol hallucinosis. Now appears to be having more prominent tremor and anxiety. Will treat with phenobarb, gabapentin, lorazepam on [facility] protocol. Status: Acute (6) Unexplained weight loss: Problem comment: Reassess after abstinence from alcohol for a month Status: Acute (7) Fatigue: Problem comment: Reassess after abstinence from alcohol for a month Status: Acute Plan Patient is admitted to the hospital for management of alcoholic ketoacidosis with alcohol withdrawal. Will assess for electrolyte problems, bleeding problems and manage alcohol withdrawal as needed. Total time spent is 60 minutes, 40 minutes in coordination of care and discussing with patient and and other providers ongoing management of alcohol use disorder and complications
[2023-06-16 21:00] VITALS: BP 133/100; PULSE 112; PULSE 113; RESP 20; TEMP 36.7; O2SAT 96; BMI 23.9
[2023-06-16 21:08] LABS: Phosphorus* 3.8 mg/dL (2.5-4.5)
[2023-06-16] MEDS: 5 % DEXTROSE IN LAC RINGER'S 1,000 ML 125 ML IV (22:18)
[2023-06-16] MEDS: SODIUM CHLORIDE 0.9 % (FLUSH) 10 ML SYRINGE 5 ML IVF (22:19)
[2023-06-16] MEDS: PANTOPRAZOLE SODIUM 40 MG INJ IVP (22:21)
[2023-06-16] MEDS: THIAMINE 500 MG in 0.9 % SODIUM CHLORIDE 100 ml 100 ML 105 MG IVPB (22:40)
[2023-06-16] MEDS: PRAVASTATIN SODIUM 20 MG TABLET 10 MG PO (22:51)
[2023-06-16] MEDS: GABAPENTIN 300 MG CAPSULE PO (22:51)
[2023-06-16] MEDS: PHENobarbitaL 65 MG/ML inj 390 MG IVP (22:58)
[2023-06-16] MEDS: MORPHINE 2 MG/ML inj IVP (23:15)
[2023-06-16 23:25] VITALS: BP 139/89; PULSE 106; RESP 20; TEMP 37.1; O2SAT 94
[2023-06-17] VITALS (10 sets, daily range): BP systolic 131–148; BP diastolic 88–96; PULSE 74–102; RESP 16–20; TEMP 36.7–37.3; O2SAT 94–99; BMI 23.8
[2023-06-17] MEDS: ONDANSETRON 2 MG/ML inj 4 MG IVP (06:04)
[2023-06-17] MEDS: MORPHINE 2 MG/ML inj IVP ×4 (06:04→16:17)
[2023-06-17] MEDS: 5 % DEXTROSE IN LAC RINGER'S 1,000 ML 125 ML IV (06:13)
[2023-06-17 06:17] LABS: Lactate* 0.9 mmol/L (0.5-1.9)
[2023-06-17 06:21] LABS: Basophils Absolute Auto 0.03 K/uL (0.00-0.30); Basophils Percent Auto 0.5 % (0.0-3.0); Eosinophils Absolute Auto 0.13 K/uL (0.00-0.50); Hematocrit 39.2 % (37.0-53.0); Hemoglobin* 13.6 gm/dL (13.5-17.5); Immature Granulocytes Abs Auto 0.02 K/uL (0.00-0.30); Immature Granulocytes Pct Auto 0.3 %; Lymphocytes Absolute Auto 1.37 K/uL (0.90-2.90); Lymphocytes Percent Auto 20.6 % (20-44); Mean Corpuscular HGB Conc 35 gm/dL (32-36); Mean Corpuscular Hemoglobin 33 pg (26-34); Mean Corpuscular Volume 96 fL (80-100); Monocytes Percent Auto 11.6 % (0.0-11.0); Neutrophils Absolute Auto 4.34 K/uL (1.7-7.0); Platelet Count* 195 K/uL (140-440); RDW Coefficient of Variation % 11.2 % (11.5-15.5); White Blood Count* 6.66 K/uL (4.50-11.00)
[2023-06-17 06:28] LABS: Slide Review Reflex No
[2023-06-17 07:33] LABS: Chloride* 99 mmol/L (96-114); Potassium* 3.7 mmol/L (3.6-5.1); Sodium* 134 mmol/L (135-149)
[2023-06-17 07:36] LABS: Anion Gap 10 mEq/L (7-15); Carbon Dioxide* 25 mmol/L (20-32); Creatinine* 0.7 mg/dL (0.5-1.5); Est. Creatinine Clearance* 138.95; Estimated Glomerular Filt Rate 114 ml/min
[2023-06-17 07:37] LABS: Blood Urea Nitrogen* 8 mg/dL (5-24); Glucose* 112 mg/dL (60-115)
--- NOTE | 2023-06-17 07:37 | PC.NURSE ---
Pt alert and oriented x3. Pleasant and cooperative Pt CIWA scores have been between 2-6. Pt reports 6/10 abdominal pain; managed with PRN morphine. Pt reports nausea; managed with PRN Zofran. Pt is up ad bela in room, voiding, and tolerating a clear liquid diet.
[2023-06-17] MEDS: NICOTINE 14 mg PATCH 1 PATCH TRANSDERMA (09:05)
[2023-06-17] MEDS: lisinopriL 10 MG TABLET PO (09:06)
[2023-06-17] MEDS: OMEPRAZOLE 20 MG CAPSULE DR PO (09:06)
[2023-06-17] MEDS: FOLIC ACID 1 MG TABLET PO (09:06)
[2023-06-17] MEDS: GABAPENTIN 300 MG CAPSULE PO ×3 (09:06→21:14)
[2023-06-17] MEDS: FENOFIBRATE 145 MG TABLET PO (09:06)
[2023-06-17] MEDS: THIAMINE 100 MG TABLET PO (09:06)
[2023-06-17] MEDS: ESCITALOPRAM 10 MG TABLET PO (09:06)
[2023-06-17] MEDS: MULTIVITAMIN/MINERALS 1 TABLET 1 TAB PO (09:06)
[2023-06-17] MEDS: SODIUM CHLORIDE 0.9 % (FLUSH) 10 ML SYRINGE 5 ML IVF ×2 (09:07→21:15)
--- NOTE | 2023-06-17 09:24 | PM.IMPN1 ---
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: Status: Acute (4) Alcohol use disorder: Problem details: - ETOH abstinence recommended - patient and interested in meeting with social work to discuss options and resources Status: Acute (5) Alcohol withdrawal: Problem details: - last drink 06/16/23 - admitted in February 2023 for hallucinations/withdrawal - current symptoms include anxiety and tremor - phenobarb, gabapentin, lorazepam on [facility] protocol Status: Acute (6) Unexplained weight loss: Problem details: Reassess after abstinence from alcohol for a month Status: Acute (7) Fatigue: Problem details: - in addition to weight loss; Reassess after abstinence from alcohol for a month - PCP is Dr. Estrada Status: Acute Plan - per above - PPI and SCDs for prophylaxis - continue treatment of withdrawal and gastritis Subjective Date Seen: 06/17/23 Interval history: Jeovany is tolerating clear liquids at this time. He still has mild abdominal discomfort, but this is much improved from admission. He has not vomited since admission. Intermittent shakiness, no tachycardia. Interested in meeting with social work to discuss treatment options for his ETOH use disorder. Exam Narrative: Exam Narrative: GEN: Alert and oriented, sitting up in bed and nontoxic in appearance HEENT: Normal external ears, EOMIs bilaterally, no scleral icterus CV: RRR, No concerning murmurs R: LCTA bilaterally without concerning wheezing, air movement is adequate Ab: Soft, endorses mild discomfort with palpation, no rebound or guarding Ext: wwp, no concerning edema Skin: No concerning skin lesions or jaundice Neuro: Intermittent bilateral hand tremors noted, no focal deficits Psych: Appropriate Const: Vital Signs, click to edit/add: Vital Signs - 24 hr 06/16/23 18:23 06/16/23 21:00 06/16/23 21:00 Temperature 98.1 F 98.1 F Pulse Rate Pulse Rate [Pulse Oximeter] 109 H 113 H Respiratory Rate 22 20 20 Blood Pressure [Le ft Arm] 133/100 H Blood Pressure [Ri ght Upper Arm] 135/92 H Pulse Oximetry 96 96 96 Oxygen Delivery Me thod Room Air Room Air Room Air 06/16/23 21:00 06/16/23 23:25 06/16/23 23:25 Temperature 98.1 F Pulse Rate Pulse Rate [Pulse Oximeter] 112 H 106 H Respiratory Rate 20 20 20 Blood Pressure [Le ft Arm] 133/100 H Blood Pressure [Ri ght Upper Arm] Pulse Oximetry 96 94 Oxygen Delivery Tn thod Room Air Room Air 06/16/23 23:25 06/17/23 00:30 06/17/23 04:20 Temperature 98.8 F 98.3 F Pulse Rate 101 H Pulse Rate [Pulse Oximeter] 106 H 102 H Respiratory Rate 20 18 Blood Pressure [Le ft Arm] 139/89 139/89 Blood Pressure [Ri ght Upper Arm] Pulse Oximetry 94 99 Oxygen Delivery Tn thod Room Air Room Air 06/17/23 04:20 06/17/23 06:00 06/17/23 08:29 Temperature 98.3 F 99.0 F 98.6 F Pulse Rate Pulse Rate [Pulse Oximeter] 102 H 83 85 Respiratory Rate 18 20 16 Blood Pressure [Le ft Arm] 139/89 141/96 H 140/88 H Blood Pressure [Ri ght Upper Arm] Pulse Oximetry 99 95 95 Oxygen Delivery Tn thod Room Air Room Air Room Air 06/17/23 08:29 06/17/23 08:29 Temperature Pulse Rate Pulse Rate [Pulse Oximeter] 85 Respiratory Rate 16 16 Blood Pressure [Le ft Arm] Blood Pressure [Ri ght Upper Arm] Pulse Oximetry 95 Oxygen Delivery Tn thod Room Air Labs Labs: Laboratory Results - last 24 hr 06/16/23 06/16/23 06/16/23 18:50 20:20 20:59 WBC 10.36 RBC 5.14 Hgb 16.9 Hct 48.9 MCV 95 MCH 33 MCHC 35 RDW Coeff of Noah 11.2 L Plt Count 244 Neut % (Auto) 80.5 H Lymph % (Auto) 14.4 L [place] % (Auto) 4.3 Eos % (Auto) 0.2 Baso % (Auto) 0.3 Neut # (Auto) 8.30 H Lymph # (Auto) 1.50 [place] # (Auto) 0.40 Eos # (Auto) 0.02 Baso # (Auto) 0.03 Abs Immat Gran (auto) 0.03 Imm/Tot Granulo (auto) 0.3 VBG pH 7.373 7.318 L VBG pCO2 30 L 32 L VBG pO2 59.4 H 71.0 H VBG HCO3 17 L 16 L Sodium 142 139 Potassium 3.6 4.0 Chloride 99 103 Carbon Dioxide 14 L 14 L Anion Gap 29 H 22 H BUN 14 13 Creatinine 0.9 0.8 Estimated Creat Clear 108.07 121.58 Estimated GFR 106 110 Glucose 91 87 Lactate 6.3 H* 5.3 H* Calcium 9.5 8.0 L Phosphorus 3.8 Magnesium 2.0 Total Bilirubin 0.8 Direct Bilirubin 0.2 AST 63 H ALT 46 Alkaline Phosphatase 111 Troponin I < 0.01 L C-Reactive Protein < 0.5 L Total Protein 9.0 H Albumin 5.5 H Lipase 88 Ethyl Alcohol 0.21 H Lab Acknowledgement Test Added Blood Type O Positive Antibody Screen NEGATIVE 06/17/23 05:50 WBC 6.66 RBC 4.10 L Hgb 13.6 Hct 39.2 MCV 96 MCH 33 MCHC 35 RDW Coeff of Noah 11.2 L Plt Count 195 Neut % (Auto) 65.0 Lymph % (Auto) 20.6 [place] % (Auto) 11.6 H Eos % (Auto) 2.0 Baso % (Auto) 0.5 Neut # (Auto) 4.34 Lymph # (Auto) 1.37 [place] # (Auto) 0.80 Eos # (Auto) 0.13 Baso # (Auto) 0.03 Abs Immat Gran (auto) 0.02 Imm/Tot Granulo (auto) 0.3 VBG pH VBG pCO2 VBG pO2 VBG HCO3 Sodium 134 L Potassium 3.7 Chloride 99 Carbon Dioxide 25 Anion Gap 10 BUN 8 Creatinine 0.7 Estimated Creat Clear 138.95 Estimated GFR 114 Glucose 112 Lactate 0.9 Calcium 8.0 L Phosphorus Magnesium Total Bilirubin Direct Bilirubin AST ALT Alkaline Phosphatase Troponin I C-Reactive Protein Total Protein Albumin Lipase Ethyl Alcohol Lab Acknowledgement Blood Type Antibody Screen
--- NOTE | 2023-06-17 13:55 | PC.SOCIAL ---
Met with pt in room to discuss chemical health inpatient treatment options. Provided pt with resource list for area inpatient and outpatient chemical health treatment options. Discussed the process to get into inpatient treatment. Pt has the support of his to complete treatment. Pt informs that he has [employer] insurance, informed pt that it would be beneficial to contact pt's insurance to see what inpatient chemical health treatment facilities are in network with pt's insurance plan. Pt will discuss with his and will reach out to social work if he has any further questions.
--- NOTE | 2023-06-17 15:22 | PC.NURSE ---
Patient A&O and VSS throughout this shift. Denies any nausea so diet has been advanced from clear liquid > full liquid. Order to advance as tolerated and D/C IVF if continues nausea free. C/o anterior mid abdominal pain & receiving PRN IV morphine; given x2 doses today. IV infusing @ 75 mL/hr in left FA. Reports having a BM this morning. Nicotine patch applied to right outer arm. Patient up ad bela independent in his room. CIWA scores 5 > 1 no PRN's needed. Scoring positive on tremors & anxiety. Denies headache or N/V.
--- NOTE | 2023-06-17 15:49 | PC.SOCIAL ---
Discharge planning: Met with pt and regarding d/c plan. has contacted [facility] in [place] [phone] (fax [phone]). Pt is hoping to go directly to their substance treatment in-pt program from the hospital at discharge. Pt gave permission for hospital to contact this facility and to provide any requested chart information. Pt states he needs a substance treatment assessment for admission to this program. Program gave him contact information on agencies that can do the assessment remotely. Pt is aware [facility] does not complete these assessments. wood processing worker called [facility] at pt request and spoke with Efren in admissions. Jose states there is no information needed from the hospital at this time. He will contact pt and directly for any follow up needed.
[2023-06-17] MEDS: LORazepam 1 MG TABLET PO (21:14)
[2023-06-17] MEDS: PRAVASTATIN SODIUM 20 MG TABLET 10 MG PO (21:14)
[2023-06-17] MEDS: PHENobarbitaL 32.4 MG TABLET 324 MG PO (23:29)
--- NOTE | 2023-06-17 23:57 | PC.NURSE ---
VSS, RA. Abdominal pain of 7, relief w/ IV morphine x1. CIWA score of 18 @ 1900- 2 mg oral ativan given x1, CIWA score down to 5. Tolerating regular diet, 600 cc oral fluids in. Voided 1500 cc. Last BM today, 06/17. Up independently in room. PIV in left FA- reddened, painful. Removed IV, catheter intact. New IV placed in right FA- SL'd. here this evening- assessment needed for rehab stay scheduled for Saturday. Pt ideally would like to go straight to rehab from here. Will continue to monitor, follow POC, and keep pt and family updated. Ruth Hart RN
[2023-06-18] VITALS (7 sets, daily range): BP systolic 120–137; BP diastolic 59–86; PULSE 73–99; RESP 16–18; TEMP 36.6–37.2; O2SAT 95–98
--- NOTE | 2023-06-18 05:36 | PC.NURSE ---
Pt alert and oriented x3. Afebrile. Pt reports 2/10 pain in abdomen, pain medications offered, declined pt stated I am doing fine right now. Pt's CIWA scores ranged between 1-3 overnight. Pt up ad bela in room, voiding and tolerating a regular diet. Pt slept throughout most of night. Night uneventful.
[2023-06-18 06:40] LABS: HCO3 VBG 29 mmol/L (21-28); PCO2 VBG 47 mmHG (40-50); PO2 VBG 48.7 mmHG (25-47); pH VBG 7.399 (7.32-7.43)
[2023-06-18 06:45] LABS: Basophils Absolute Auto 0.06 K/uL (0.00-0.30); Basophils Percent Auto 1.2 % (0.0-3.0); Eosinophils Percent Auto 5.8 % (0.0-7.0); Hematocrit 42.6 % (37.0-53.0); Hemoglobin* 14.4 gm/dL (13.5-17.5); Immature Granulocytes Abs Auto 0.01 K/uL (0.00-0.30); Immature Granulocytes Pct Auto 0.2 %; Lymphocytes Absolute Auto 1.14 K/uL (0.90-2.90); Lymphocytes Percent Auto 22.2 % (20-44); Mean Corpuscular HGB Conc 34 gm/dL (32-36); Mean Corpuscular Hemoglobin 33 pg (26-34); Mean Corpuscular Volume 98 fL (80-100); Monocytes Percent Auto 10.9 % (0.0-11.0); Neutrophils Absolute Auto 3.07 K/uL (1.7-7.0); Neutrophils Percent Auto 59.7 % (42.0-72.0); Platelet Count* 179 K/uL (140-440); RDW Coefficient of Variation % 11.3 % (11.5-15.5); Red Blood Count 4.37 m/uL (4.30-5.90); White Blood Count* 5.14 K/uL (4.50-11.00)
[2023-06-18 06:48] LABS: Slide Review Reflex No
[2023-06-18 07:10] LABS: Albumin* 4.4 g/dL (3.3-5.0); Chloride* 101 mmol/L (96-114); Sodium* 137 mmol/L (135-149)
[2023-06-18 07:12] LABS: Bilirubin Total* 1.1 mg/dL (0.1-1.5); Creatinine* 0.9 mg/dL (0.5-1.5); Est. Creatinine Clearance* 108.07; Estimated Glomerular Filt Rate 106 ml/min
[2023-06-18 07:13] LABS: Alanine Aminotransferase* 29 U/L (4-50); Alkaline Phosphatase* 66 U/L (40-150); Anion Gap 10 mEq/L (7-15); Aspartate Amino Transferase* 39 U/L (12-35); Blood Urea Nitrogen* 7 mg/dL (5-24); Carbon Dioxide* 26 mmol/L (20-32); Glucose* 109 mg/dL (60-115); Total Protein* 7.3 g/dL (6.0-8.3)
[2023-06-18 07:14] LABS: Calcium* 8.9 mg/dL (8.4-10.6); Magnesium* 2.4 mg/dL (1.5-2.6)
[2023-06-18] MEDS: NICOTINE 14 mg PATCH 1 PATCH TRANSDERMA (08:57)
[2023-06-18] MEDS: GABAPENTIN 300 MG CAPSULE PO (08:58)
[2023-06-18] MEDS: FOLIC ACID 1 MG TABLET PO (08:58)
[2023-06-18] MEDS: THIAMINE 100 MG TABLET PO (08:58)
[2023-06-18] MEDS: ESCITALOPRAM 10 MG TABLET PO (08:58)
[2023-06-18] MEDS: MULTIVITAMIN/MINERALS 1 TABLET 1 TAB PO (08:58)
[2023-06-18] MEDS: lisinopriL 10 MG TABLET PO (08:58)
[2023-06-18] MEDS: OMEPRAZOLE 20 MG CAPSULE DR PO (08:59)
[2023-06-18] MEDS: FENOFIBRATE 145 MG TABLET PO (09:08)
--- NOTE | 2023-06-18 09:14 | NUTR.NU ---
RDN visited with patient related to weight loss and EtOH withdrawal. Nutrition assessment completed 06/17/2023. Per IDT, patient is hoping to go to rehab soon. RDN visited with patient whom reports feeling better, however he felt groggy and a little shaky this morning. Patient reports weight loss, with usual body weight at about 187lbs. Current diet is Regular. He was able to eat a regular diet for dinner yesterday at 75%. This morning he ordered oatmeal, fruit bowl, and a scone with juice. RDN offered general, healthy diet education however patient declined at this time due to feeling groggy. He did accept educational materials (from [employer] and [employer] finished [employer] pl[employer]). RDN encouraged patient to let staff know if he has any questions or concerns. RDN's contact information was provided and patient was encouraged to call with questions.
--- NOTE | 2023-06-18 11:13 | PM.DS1 ---
DS: Providers Provider Date Seen: 06/18/23 Date of admission: 06/16/23 20:57 Primary care physician: Tito Lucas MD Admitting Clinician: Abrahan Orozco MD Consults: Social Work Attending Physician on discharge: Gema Jameson MD Date of Discharge: 06/18/23 DS: Diagnosis Discharge Diagnosis (1) Alcoholic ketoacidosis: Status: Acute Problem details: - received D5 LR for fluid resuscitation, advanced diet throughout stay and pH normalized (2) Acute alcoholic gastritis: Status: Acute Problem details: - Hgb and BUN stable throughout stay - tolerated PPI, will continue upon d/c (3) Alcohol use disorder: Status: Acute Problem details: - ETOH abstinence recommended - patient and plan on inpatient rehab stay upon discharge (4) Alcohol withdrawal: Status: Acute Problem details: - last drink 06/16/23 - admitted in February 2023 for hallucinations/withdrawal - phenobarb, gabapentin, lorazepam on CIWA protocol - CIWA scores low over last 24 hours in the hospital, felt stable for d/c home with close rehab f/u (5) Fatigue: Status: Acute Problem details: - in addition to weight loss; Reassess after abstinence from alcohol for a month - PCP is Dr. Estrada DS: Summary Hospital Course Hospital Course: Patient admitted to the hospital for abdominal pain, weight loss, fatigue, in addition to alcohol use disorder. Started on CIWA protocol, treated with phenobarbital and gabapentin in addition with p.r.n. Ativan. Had intermittent anxiety and tremor during stay, relieved with the above medications. Patient met with social Work to discuss alcohol cessation resources and he plans to enroll in inpatient program upon discharge. Patient was medically appropriate for discharge on 06/18/23; will remain on Omeprazole, Gabapentin and prn Ativan. Further details regarding notable findings above. Status at Discharge Functional status at discharge: independent ambulation Overall status at discharge: patient is back to baseline Time Spent with Patient Time attestation: Total time spent providing and/or coordinating discharge services: Time spent: Greater than 30 minutes Specific discharge activities: Medication reconciliation, patient education, documentation Exam Narrative: Exam Narrative: GEN: Alert and oriented, answering questions appropriately HEENT: EOMIs bilaterally, no scleral icterus CV: RRR without tachycardia, No concerning murmurs R: LCTA bilaterally without concerning wheezing, air movement adequate Ext: wwp, no concerning edema Skin: No concerning skin lesions or rashes on exposed skin Neuro: Nonfocal Psych: Appropriate Const: Vital Signs, click to edit/add: Vital Signs - 24 hr 06/17/23 12:05 06/17/23 15:00 06/17/23 15:00 Temperature 98.3 F 99.1 F Pulse Rate Pulse Rate [Pulse Oximeter] 83 79 Respiratory Rate 16 16 16 Blood Pressure [Le ft Arm] 148/96 H 139/91 H Pulse Oximetry 95 94 94 Oxygen Delivery Me thod Room Air Room Air Room Air 06/17/23 15:00 06/17/23 15:00 06/17/23 19:00 Temperature 98.9 F Pulse Rate 85 Pulse Rate [Pulse Oximeter] 89 Respiratory Rate 16 16 Blood Pressure [Le ft Arm] 131/90 H Pulse Oximetry 94 Oxygen Delivery Me thod Room Air 06/17/23 21:00 06/17/23 23:25 06/17/23 23:25 Temperature 98.9 F Pulse Rate 77 Pulse Rate [Pulse Oximeter] 89 Respiratory Rate 16 18 Blood Pressure [Le ft Arm] 131/90 H Pulse Oximetry 94 Oxygen Delivery Me thod Room Air 06/17/23 23:25 06/17/23 23:25 06/17/23 23:25 Temperature 98.0 F 98.0 F Pulse Rate Pulse Rate [Pulse Oximeter] 74 74 Respiratory Rate 18 18 18 Blood Pressure [Le ft Arm] 132/88 132/88 Pulse Oximetry 97 97 97 Oxygen Delivery Me thod Room Air Room Air Room Air 06/18/23 00:00 06/18/23 04:00 06/18/23 04:00 Temperature 98.0 F 97.8 F 97.8 F Pulse Rate Pulse Rate [Pulse Oximeter] 99 73 73 Respiratory Rate 16 16 16 Blood Pressure [Le ft Arm] 133/86 120/76 120/76 Pulse Oximetry 96 96 96 Oxygen Delivery Me thod Room Air Room Air Room Air 06/18/23 08:46 Temperature 97.8 F Pulse Rate Pulse Rate [Pulse Oximeter] 80 Respiratory Rate 18 Blood Pressure [Le ft Arm] 137/59 L Pulse Oximetry 95 Oxygen Delivery Me thod Room Air DS: Data Data Completed and Pending Labs on day of discharge: Labs from last 24 hours 06/18/23 05:41 WBC 5.14 RBC 4.37 Hgb 14.4 Hct 42.6 MCV 98 MCH 33 MCHC 34 RDW Coeff of Noah 11.3 L Plt Count 179 Neut % (Auto) 59.7 Lymph % (Auto) 22.2 [place] % (Auto) 10.9 Eos % (Auto) 5.8 Baso % (Auto) 1.2 Neut # (Auto) 3.07 Lymph # (Auto) 1.14 [place] # (Auto) 0.60 Eos # (Auto) 0.30 Baso # (Auto) 0.06 Abs Immat Gran (auto) 0.01 Imm/Tot Granulo (auto) 0.2 VBG pH 7.399 VBG pCO2 47 VBG pO2 48.7 H VBG HCO3 29 H Sodium 137 Potassium 4.0 Chloride 101 Carbon Dioxide 26 Anion Gap 10 BUN 7 Creatinine 0.9 Estimated Creat Clear 108.07 Estimated GFR 106 Glucose 109 Lactate 1.0 Calcium 8.9 Magnesium 2.4 Total Bilirubin 1.1 AST 39 H ALT 29 Alkaline Phosphatase 66 Total Protein 7.3 Albumin 4.4 Discharge Plan Discharge Disposition: Home, Self-Care Date of Admission: 06/16/23 20:57 Attending Provider on Discharge: Gema Jameson Primary Care Provider: Tito Lucas Condition: Improved Anticipated Discharge Date/Time: 06/18/23 10:40 Discharge Medications: New gabapentin 300 mg Capsule 300 mg PO TID Qty: 30 0RF omeprazole 20 mg Capsule,Delayed Release(Dr/Ec) 20 mg PO DAILY Qty: 30 0RF lorazepam 1 mg Tablet 1 mg PO Q8H PRNQty: 10 0RF Rx Instructions: for acute anxiety Continued pravastatin 10 mg tablet 10 mg PO HS lisinopril 10 mg tablet 10 mg PO DAILY fenofibrate nanocrystallized 145 mg tablet 145 mg PO DAILY escitalopram oxalate 10 mg tablet 10 mg PO DAILY Qty: 30 0RF Discharge Orders: Discharge Order (Routine); Ordered 06/18/23 Ordered By: Gema Jameson Patient Education: Lorazepam (By mouth), Omeprazole (By mouth), Gabapentin (By mouth) Additional Instructions: Stay on home medications. New meds at [facility]: 1. Gabapentin (take thrice/day, scheduled, to help with anxiety and withdrawal symptoms). 2. Ativan (take at night as needed for severe anxiety) - both this and Gabapentin can make you tired. No driving while on this. 3. Omeprazole (acid ict account manager) - take daily in the morning for the stomach symptoms that brought you in. Call and make an appointment with Dr. Lucas after your rehab stay. Activity Level: Activity as Tolerated Discharge Diet: Regular Diet Detail: Nabb, advance as tolerated Follow Up Appointments: Tito Lucas MD [Primary Care Provider] - Miguel Fan MD [Staff Physician] - Forms: Work/School Release, [facility]
[2023-06-18] MEDS: LORazepam 1 MG TABLET PO (12:23)
--- NOTE | 2023-06-18 14:35 | PC.NURSE ---
shift note: vss stable. ciwa 5 & 6. Pt received ativan PO for increased anxiety. LS clr/dim. IV dc'd intact Rt FA. Belongings reviewed and sent with pt at dc. DC instructions sent with pt after review.
[2023-06-20 11:09] LABS: Vitamin B1, Whole Blood 314 nmol/L (70-180)
== END 2023-06-18 13:00 | disposition home or self-care (01) | DRG 897 ==
LOC: ED 20:41 → MEDSURG 20:57
PROVIDERS: Family Medicine; Admitting Provider Family Medicine; Emergency Provider Emergency Medicine; PCP Family Medicine; Visit Provider Family Medicine
DX: F10.288 Alcohol dependence with other alcohol-induced disorder (principal); E87.29 Other acidosis; K70.0 Alcoholic fatty liver; K29.20 Alcoholic gastritis without bleeding; F10.239 Alcohol dependence with withdrawal, unspecified; F10.229 Alcohol dependence with intoxication, unspecified; Y90.7 Blood alcohol level of 200-239 mg/100 ml; F10.280 Alcohol dependence with alcohol-induced anxiety disorder; R53.83 Other fatigue; R63.4 Abnormal weight loss; F17.290 Nicotine dependence, other tobacco product, uncomplicated
CPT/HCPCS: 36415; 74177; 80048; 80053; 80076; 82077; 82803; 83605; 83690; 83735; 84100; 84425; 84484; 85025; 86140; 86850; 86900; 86901; 93005; 99285; A9153; A9270; C9113; J2270; J2405; J2560; J3411; J7030; Q9967; S4990

== ENCOUNTER 2023-09-11 07:50 | Outpatient (CLI) | payer OTHER, SELFPAY | END 2023-09-11 07:51 | disposition home or self-care (01) | LOC: NFLDREF 12:44 | PROVIDERS: PCP Family Medicine; Referring Provider Family Medicine; Visit Provider Family Medicine | DX: E78.1 Pure hyperglyceridemia (principal); I10 Essential (primary) hypertension | CPT/HCPCS: 80053; 80061 ==

== ENCOUNTER 2023-12-02 19:29 | Outpatient (CLI) | payer OTHER, SELFPAY ==
--- OUTSIDE RECORDS SUMMARY | 2023-12-02 19:32 | XMS_ITS | Encounter Summary ---
Author Name Unknown Organization [facility] Address [address] [place] [address] Care Team Providers Care Flight Manager Name Role Phone Dre Granger M.D. Primary Care Provider [phone] Encounter Details Date Type Department Care Team (Late st Contact Info) Description 09/03/2023 Orders Only [facility] [address] [place] [id number] Dre Granger M.D. [address] [place] [address] Screening Cancer Colon Social History Tobacco Use Types Packs/Day Years Used Date Smoking Tobacco: Smoker, Current Status Unknown Cigars Smokeless Tobacco: Never Alcohol Use Standard Drinks/Week Comments Yes 0 (1 standard drink = 0.6 oz pur e alcohol) 1-2 beers daily Humiliation, Afraid, Rape, and Kick questionnair e Answer Date Recorded Within the last year, have y ou been afraid of your partner or ex-partner? No 09/10/2022 Within the last year, have y ou been humiliated or emotionally abused in other ways by your partner or ex-partner? No Within the last year, have y ou been kicked, hit, slapped, or otherwise physically hurt by your partner or ex-partner? No 09/10/2022 Within the last year, have y ou been raped or forced to have any kind of sexual activity by your partner or ex-partner? No 09/10/2022 Social Connection and Isolat ion Panel [NHANES] Answer Date Recorded In a typical week, how many times do you talk on the phone with family, friends, or neighbors? Three times a week 09/10/2022 How often do you get togethe r with friends or relatives? Twice a week 09/10/2022 How often do you attend chur or latter-day services? More than 4 times per year 09/10/2022 Do you belong to any clubs o r organizations such as jehovah's witness groups, unions, fraternal or athletic groups, or school groups? Yes 09/10/2022 How often do you attend meet ings of the clubs or organizations you belong to? 1 to 4 times per year 09/10/2022 Are you , , di vorced, , never , or living with a partner? 09/10/2022 AUDIT-C Answer Date Recorded Q1: How often do you have a drink containing alc ohol? 2-4 times a month 09/10/2022 Q2: How many drinks containi ng alcohol do you have on a typical day when you are drinking? 3 or 4 09/10/2022 Q3: How often do you have si x or more drinks on one occasion? Less than monthly 09/10/2022 Overall Financial Resource Strain (CARDIA) Answe r Date Recorded How hard is it for you to pa y for the very basics like food, housing, medical care, and heating? Not hard at all 09/10/2022 PHQ-2 Answer Date Recorded PHQ-2 Score 0 04/12/2022 [facility] - Occupational Stress Questionnaire Answer Date Recorded Do you feel stress - tense, restless, nervous, or anxious, or unable to sleep at night because your mind is troubled all the time - these days? Not at all 09/10/2022 Exercise Vital Sign Answer Date Recorde d On average, how many days pe r week do you engage in moderate to strenuous exercise (like a brisk walk)? 5 days 09/10/2022 On average, how many minutes do you engage in exercise at this level? 90 min 09/10/2022 Hunger Vital Sign Answer Date Recorded Within the past 12 months, y ou worried that your food would run out before you got the money to buy more. Never true 09/10/19 23 Within the past 12 months, t he food you bought just didn't last and you didn't have money to get more. Never true 09/10/2022 PRAPARE - Transportation Answer Date Re corded In the past 12 months, has l ack of transportation kept you from medical appointments or from getting medications? No 08/29 In the past 12 months, has l ack of transportation kept you from meetings, work, or from getting things needed for daily living? No 09/10/2022 Housing Stability Vital Sign Answer Anuel e Recorded In the last 12 months, was t here a time when you were not able to pay the mortgage or rent on time? No 09/10/2022 In the last 12 months, how many places have you lived? 1 09/10/2022 In the last 12 months, was t here a time when you did not have a steady place to sleep or slept in a care home (including now)? No 09/10/2022 Nutrition Answer Date Recorded Nutrition: EVOO Fat Source Yes 09/10 On average, how many serving s of fruits and vegetables do you eat per day (serving size is equal to 1 cup or approximately the size of a tennis ball)? 2-3 09/10/2022 Dental Answer Date Recorded Dental: Regular Dentist Yes 09/10/19 Employment Answer Date Recorded Employment status Employed and actively working without restrictions 09/10/2022 Education Answer Date Recorded What is the highest level of school you have completed or the highest degree you have received? Associate degree: occupational, technical, or vocational program 09/10/2022 Sex and Gender Information Value Date Recorded Sex Assigned at Male 09/10/2022 9:44 AM CONTINUITY WRITER Gender Identity Male 09/10/2022 9:44 AM CONTINUITY WRITER Sexual Orientation Straight 09/10/2022 9: 44 AM CONTINUITY WRITER documented as of this encounter Plan of Treatment Scheduled Orders Name Type Priority Associated Diagnoses Orde r Schedule Cologuard - Sent Out Lab Lab Routine Screening Cancer Colon Expected: 09/17/2023 (Approximate), Expires: 12/01/2024 documented as of this encounter Visit Diagnoses Diagnosis Screening Cancer Colon documented in this encounter Care Teams Flight Manager Relationship Specialty Start Date End Date [place] [address] PCP - General Family Medicine 04/12/22 documented as of this encounter
--- OUTSIDE RECORDS SUMMARY | 2023-12-02 19:32 | XMS_ITS | Referral Summary ---
Author Name Unknown Organization [facility] Address [address] [place] [address] Care Team Providers Care Pot Press Operator Name Role Phone Dre Granger M.D. Primary Care Provider [phone] Source Comments Patient records contain information from all sites at [facility]. For routine questions regarding patient records, call [phone] during business hours, M-F 8:00 AM - 5:00 PM Central Time. Record requests for emergency care only can be directed to [phone] at any time.[facility] Encounters Date Type Department Care Team Description 09/17/2023 Orders Only [facility] [address] [place] [address] Dre Granger M.D. Screening Cancer Colon 09/03/2023 Orders Only [facility] [address] [place] [address] Dre Granger M.D. Screening Cancer Colon from Last 3 Months Allergies Active Allergy Reactions Criticality Noted Date Comments Erythromycin Rash 08/11/2012 Medications Medication Sig Dispensed Refills Start Date End Date Status multivit-min/FA/lyc open/lutein (CENTRUM SILVER MEN ORAL) daily. 09/20/2016 Active acetaminophen (TYLENOL) 500 mg tablet Take by mouth as needed. 05/16/2014 Active triamcinolone (KENALOG) 0.1 % creamIndications:Ra sh Apply 1 Application topically 2 (two) times a day for 10 days. 30 g 01/04/2023 Active lisinopriL (PRINIVIL,ZESTRIL) 10 mg tablet Take 1 tablet (10 mg total) by mouth daily. 90 tablet 3 03/15/2023 Active pravastatin (PRAVACHOL) 10 mg tablet Take 1 tablet (10 mg total) by mouth at bedtime. 90 tablet 3 03/15/2023 Active Active Problems Problem Noted Date Diagnosed Date Brugada Syndrome 02/04/2022 Overview: Diagn[place] [address] [facility]. He has an intermittent Brugada pattern. He has no history of syncope. This pattern is also present in his mother and sister. He was seen by Cardiology at that time and was felt to be at very low risk for symptomatic events, less than 1% per year. Aneurysm Aortic Ascending Without Rupture 2021 Hypertriglyceridemia 01/31/2022 Immunizations Name Administration Dates Next Due HepA Adult 04/30/2005 Tdap 08/11/2015,08/13/2013 Social History Tobacco Use Types Packs/Day Years Used Date Smoking Tobacco: Smoker, Current Status Unknown Cigars Smokeless Tobacco: Never Tobacco Cessation:Ready to Q uit: Not Asked; Counseling Given: Not Answered Alcohol Use Standard Drinks/Week Comments Yes 0 [...] week 09/10/2022 How often do you attend [facility] or jainism services? More than 4 times per year 09/10/2022 Do you belong to any clubs o r organizations such as uatsdin groups, unions, fraternal or athletic groups, or [...] Answer Date Recorded PHQ-2 Score 0 04/12/2022 [facility] - Occupational Stress Questionnaire Answer Date Recorded [...] place to sleep or slept in a residential (including now)? No 09/10/2022 Nutrition Answer Date [...] Sex Assigned at Male 09/10/2022 9:44 AM WATER QUALITY TESTER Gender Identity Male 09/10/2022 9:44 AM WATER QUALITY TESTER Sexual Orientation Straight 09/10/2022 9: 44 AM WATER QUALITY TESTER Last Filed Vital Signs Vital Sign Reading Time Taken Comments Blood Pressure 119/91 03/13/2023 11:00 AM CDT Pulse 80 03/13/2023 11:00 AM CDT Temperature 36.7 ??C (98.1 ??F) 03/13/2023 8:33 AM CD T Respiratory Rate 16 03/13/2023 11:00 AM CDT Oxygen Saturation 95% 03/13/2023 11:00 AM CDT Inhaled Oxygen Concentration - - Weight 79 kg (174 lb 2.6 oz) 03/13/2023 8:33 AM CDT Height 185.4 cm (6' 0.99) 07/31/2022 11:[address] Body Mass Index 22.98 07/31/2022 11:25 AM WATER QUALITY TESTER Plan of Treatment Not on file Procedures Procedure Name Priority Date/Time Associated Diagnosis Comments COMPREHENSIVE METABOLIC PANEL, S/P STAT 03/13/2023 9:04 AM CDT LIPID PANEL, S Routine 02/14/2022 9:08 AM CDT Hypertriglyceridem ia from Last 3 Months or Most Recently Relevant to Health Maintenance Results * (ABNORMAL) Comprehensive Metabolic Panel (03/13/2023 9:04 AM CDT) Potassium, P 3.8 3.6 - 5.2 mmol/L 03/13/2023 9:38 AM CDT NPRG Sodium, P 138 135 - 145 mmol/L 03/13/2023 9:38 AM CDT NPRG Chloride, P 99 98 - 107 mmol/L 03/13/2023 9:38 AM CDT NPRG Bicarbonate, P 25 22 - 29 mmol/L 03/13/2023 9:38 AM CDT NPRG Anion Gap, P 14 7 - 15 03/13/2023 9:38 AM CDT NPRG BUN (Blood Urea Nitrogen), P 10 8 - 24 mg/dL 03/13/2023 9:38 AM CDT NPRG Creatinine 0.82 0.74 - 1.35 mg/dL 03/13/2023 9:38 AM CDT NPRG Estimated GFR (eGFR) >90 >=60 mL/min/BS A 03/13/2023 9:38 AM CDT NPRG Comment: Estimated GFR calculated using the 2020 CKD_EPI creatinine equation. Calcium, Total, P 9.2 8.6 - 10.0 mg/dL 03/13/2023 9:38 AM CDT NPRG Glucose, P 101 70 - 140 mg/dL 03/13/2023 9:38 AM CDT NPRG Protein, Total, P 7.8 6.3 - 7.9 g/dL 03/13/2023 9:38 AM CDT NPRG Albumin, P 4.6 3.5 - 5.0 g/dL 03/13/2023 9:38 AM CDT NPRG Aspartate Aminotransferase (AST), P 178(H) 8 - 48 U/L 03/13/2023 9:38 AM CDT NPRG Alkaline Phosphatase, P 124 40 - 129 U/L 03/13/2023 9:38 AM CDT NPRG Alanine Aminotransferase (ALT), P 122(H) 7 - 55 U/L 03/13/2023 9:38 AM CDT NPRG Bilirubin, Total, P 0.4 <=1.2 mg/dL 03/13/2023 9:38 AM CDT NPRG Blood (Blood, Venous) 03/13/2023 9:04 AM CDT 03/13/2023 9:07 AM CDT Vamshi Claros D.O. LAB BLOOD ADD-ON [facility] [address] [place] [address], [facility] NPRG [facility] [address] [place] [address] * (ABNORMAL) Lipid Panel (02/14/2022 9:08 AM CDT) Triglycerides 179(H) mg/dL 02/14/2022 11:16 AM CDT NPRG Comment: ----REFERENCE VALUE---- Normal: <150 mg/dL Borderline High: 150-199 mg/dL High: 200-499 mg/dL Very High: > or =500 mg/dL Cholesterol, Total 183 mg/dL 2021 11:16 AM CDT NPRG Comment: ----REFERENCE VALUE---- Desirable: < 200 mg/dL Borderline High: 200 - 239 mg/dL High: > or = 240 mg/dL Cholesterol, LDL, Calculated 99 mg/dL 02/14/2022 11:16 AM CDT NPRG Comment: ----REFERENCE VALUE---- Desirable: <100 mg/dL Above Desirable: 100-129 mg/dL Borderline High: 130-159 mg/dL High: 160-189 mg/dL Very High: >=190 mg/dL ----ADDITIONAL INFORMATION---- LDL cholesterol calculated using the [place]j/NIH equation. Cholesterol, HDL 53 >=40 mg/dL 02/15/20 11:16 AM CDT NPRG Cholesterol, Non-HDL, Calculated 130 mg/dL 02/14/2022 11:16 AM CDT NPRG Comment: ----REFERENCE VALUE---- Desirable: <130 mg/dL Above Desirable: 130-159 mg/dL Borderline High: 160-189 mg/dL High: 190-219 mg/dL Very High: > or =220 mg/dL Fasting (8 HR or more) yes 02/14/2022 10:34 AM CDT NPRG Blood (Blood, Venous) 02/14/2022 9:08 AM CDT 02/14/2022 10:34 AM CDT Dre Granger M.D. LAB BLOOD ADD-ON [facility] [address] [place] [address], [facility] NPRG [facility] [address] [place] [address] from Last 3 Months or Most Recently Relevant to Health Maintenance Care Teams Pot Press Operator Relationship Specialty Start Date End Date Dre Granger M.D. [address] [place] [address] PCP - General Family Medicine 04/12/22
--- OUTSIDE RECORDS SUMMARY | 2023-12-02 19:32 | XMS_ITS | Clinical Summary ---
Author Name Unknown Organization [facility] Address [address] [address] Phone Care Team Providers Care Design Tech Name Role Phone Unavailable Primary Care Provider Unavailabl e Allergies Active Allergy Reactions Criticality Noted Date Comments Erythromycin 08/11/2012 Medications No known medications Social History Tobacco Use Types Packs/Day Years Used Date Smoking Tobacco: Never Assessed Sex and Gender Information Value Date Recorded Sex Assigned at Not on file Gender Identity Not on file Sexual Orientation Not on file Last Filed Vital Signs Vital Sign Reading Time Taken Comments Blood Pressure 144/71 08/11/2012 8:58 AM MEDICAID BUSINESS ANALYST Pulse 66 08/11/2012 8:58 AM MEDICAID BUSINESS ANALYST Temperature 36.5 ??C (97.7 ??F) 08/11/2012 7:48 AM CS T Respiratory Rate 14 08/11/2012 8:58 AM MEDICAID BUSINESS ANALYST Oxygen Saturation 98% 08/11/2012 8:58 AM MEDICAID BUSINESS ANALYST Inhaled Oxygen Concentration - - Weight 86.2 kg (190 lb) 08/11/2012 7:48 AM MEDICAID BUSINESS ANALYST Height 180.3 cm (5' 11) 08/11/2012 7:48 AM MEDICAID BUSINESS ANALYST Body Mass Index 26.5 08/11/2012 7:48 AM MEDICAID BUSINESS ANALYST Plan of Treatment Not on file
--- OUTSIDE RECORDS SUMMARY | 2023-12-02 19:32 | XMS_ITS | Clinical Summary ---
Author Name Unknown Organization [facility] Address [address], [place] [address] Care Team Providers Care Manager Advertising Name Role Phone Unavailable Primary Care Provider Unavailabl e Source Comments You are receiving this document as you are listed as the primary care provider,follow-up provider, or the patient has been referred to you for consultation.This is in compliance with the Medicare and[facility] Healthcare System[facility] EHR Incentive Program,which states Providers who transition their patient to another setting of careor provider of care or refers their patient to another provider of care shouldprovide summary care record for each transition of care or referral. [facility] Allergies Active Allergy Reactions Criticality Noted Date Comments Azithromycin 06/29/2016 Medications Medication Sig Dispensed Refills Start Date End Date Status BuPROPion HCl (WELLBUTRIN OR) Active pravastatin (PRAVACHOL) 10 MG tablet Take 10 mg by mouth daily at bedtime. Active MULTIPLE VITAMIN OR Activ e acetaminophen-codeine (TYLENOLNO.3) 300-30 MG tablet Take 1-2 Tabs by mouth every 6 hours as needed for Pain. 15 Tab 0 06/29/2016 Active Active Problems No known active problems Immunizations Name Administration Dates Next Due Tdap 08/11/2015 Social History Tobacco Use Types Packs/Day Years Used Date Smoking Tobacco: Former Sex and Gender Information Value Date Recorded Sex Assigned at Not on file Gender Identity Not on file Sexual Orientation Not on file Last Filed Vital Signs Vital Sign Reading Time Taken Comments Blood Pressure 131/90 07/09/2016 2:28 PM PROPERTY ASSISTANT Pulse 83 07/09/2016 2:28 PM PROPERTY ASSISTANT Temperature 36.7 ??C (98 ??F) 07/09/2016 2:28 PM PROPERTY ASSISTANT Respiratory Rate 17 07/09/2016 2:28 PM PROPERTY ASSISTANT Oxygen Saturation 98% 06/29/2016 9:28 AM PROPERTY ASSISTANT Inhaled Oxygen Concentration - - Weight - - Height - - Body Mass Index - - Plan of Treatment Health Maintenance Due Date Last Done Comments Colon Cancer Screening Plan Due 1976 Hep C Screening (Preventive Services) 1976 HIV Screening (Preventive Services) 1992 Adult Preventive Visit 1994 HepB (1) 1995 Cholesterol 2011 COVID-19 Vaccine (1 - 2022-2 4 season) 2023 Influenza (Season Ended) 2024 DTaP/Tdap/Td (2 - Tdap) 08/11/2025 08/11/2015 Zoster/Shingles (1 of 2) 2026 HepA Aged Out No longer eligi ble based on patient's age to complete this topic Hib Aged Out No longer eligi ble based on patient's age to complete this topic IPV (Polio) Aged Out No longer eligi ble based on patient's age to complete this topic MCV4 Aged Out No longer eligi ble based on patient's age to complete this topic Pneumococcal Aged Out No longer eligi ble based on patient's age to complete this topic Jeovany Colon Workers Comp Self [address] [place] [address]
--- OUTSIDE RECORDS SUMMARY | 2023-12-02 19:32 | XMS_ITS | Clinical Summary ---
Author Name Unknown Organization [facility] Address [address] [place] [address] Care Team Providers Care Metal Moulder Name Role Phone Dre Granger M.D. Primary Care Provider Source Comments Patient records contain information from all sites at [facility]. For routine questions regarding patient records, call [phone] during business hours, M-F 8:00 AM - 5:00 PM Central Time. Record requests for emergency care only can be directed to [phone] at any time.[facility] Allergies Active Allergy Reactions Criticality Noted [...] Syndrome 02/04/2022 Overview: Diagnosed in 2013 by [facility]. He has an intermittent Brugada pattern. He has no history of syncope. This pattern is also present in his mother and sister. He was seen by Cardiology at that time and was felt to be at very low risk for symptomatic events, less than 1% per year. Aneurysm Aortic Ascending Without Rupture 2021 Hypertriglyceridemia 01/31/2022 Encounters Date Type Department Care Team Description 09/17/2023 Orders Only [facility] [address] [place] [address] Dre Granger M.D. Screening Cancer Colon 09/03/2023 Orders Only [facility] [address] [place] [address] Dre Granger M.D. Screening Cancer Colon from Last 3 Months Immunizations Name Administration Dates Next Due HepA Adult 04/30/2005 Tdap 08/11/2015,08/13/2013 Family History Medical History Relation Name Comments Heart disease Maternal Grandfather a t 70 Lung cancer Maternal Grandmother brugada Mother Brugada pattern Sister Relation Name Status Comments Father Other Estranged Maternal Grandfather Maternal Grandmother Mother Alive Sister Alive Social History Tobacco Use Types Packs/Day Years [...] How often do you attend chur or cheondoism services? More than 4 times per year 09/10/2022 Do you belong to any clubs o r organizations such as baptism groups, unions, fraternal or athletic groups, or [...] 04/12/2022 [facility] - Occupational Stress Questionnaire Answer Date Recorded [...] place to sleep or slept in a nursing home (including now)? No 09/10/2022 Nutrition Answer [...] Sex Assigned at Male 09/10/2022 9:44 AM TERMINAL GAUGER SUPERVISOR Gender Identity Male 09/10/2022 9:44 AM TERMINAL GAUGER SUPERVISOR Sexual Orientation Straight 09/10/2022 9: 44 AM TERMINAL GAUGER SUPERVISOR Last Filed Vital Signs Vital Sign Reading [...] Body Mass Index 22.98 07/31/2022 11:25 AM TERMINAL GAUGER SUPERVISOR Plan of Treatment Health Maintenance Due Date Last Done Comments CT Colonography 1976 Cologuard 1976 Colonoscopy 1976 Colorectal Cancer Screening 1976 FIT 1976 HIV Screening 1976 Hepatitis C Screening 1976 Pneumococcal vaccine (0-64 y ears) (1 of 2 - PCV) 1982 Hepatitis B Vaccines (1 of 3 - 19+ 3-dose series) 1995 Hepatitis A Vaccines (2 of 2 - Risk 2-dose series) 10/29/2005 04/30/2005 COVID-19 Vaccine ( - 2022- season) 2023 Tobacco Cessation counseling 04/12/2023 04/12/2022 Influenza Vaccine (#1) 2023 09/13/2022 Depression Screening (Annual PHQ-2) 07/29/2023 Creatinine Level (Kidney Function Test) 03/13/2024 0 03/13/2023 Potassium Level 03/13/2024 03/13/2023 Sodium Level 03/13/2024 03/13/2023 DTaP,Tdap,and Td Vaccines (3 - Td or Tdap) 08/11/2025 08/11/2015, 08/13/2013 Fasting Glucose for Diabetes Screening 03/13/2026, 02/14/2022 Lipid (Cholesterol) Screening 02/14/2027 02/14/2022 Procedures Procedure Name Priority Date/Time Associated Diagnosis [...] CDT Vamshi Claros D.O. LAB BLOOD ADD-ON [facility] [address] [place] [address], [place] NPRG [facility] [address] [place] [address] * (ABNORMAL) Lipid Panel (02/14/2022 9:08 AM [...] CDT Dre Granger M.D. LAB BLOOD ADD-ON [facility] [address] [place] [address], [place] NPR[place] [facility] [address] [place] [address] from Last 3 Months or Most Recently Relevant to Health Maintenance Care Teams Metal Moulder Relationship Specialty Start Date End Date Dre Granger M.D. [address] [place] [address] PCP - General Family Medicine 04/12/22
--- OUTSIDE RECORDS SUMMARY | 2023-12-02 19:32 | XMS_ITS | Clinical Summary ---
Author Name Unknown Organization [facility] Address [address] [place] [address] Care Team Providers Care Single Needle Tufting Machine Operator Name Role Phone Unavailable Primary Care Provider Unavailabl e Allergies Active Allergy Reactions Criticality Noted Date Comments Erythromycin Rash 08/11/2012 Medications Medication Sig Dispensed Refills Start Date End Date Status escitalopram (LEXAPRO) 10 MG tablet Take 1 tablet (10 mg total) by mouth 1 (one) time each day 0 06/10/2023 Active gabapentin (NEURONTIN) 300 MG capsule Take 1 capsule (300 mg total) by mouth 3 (three) times a day 0 06/18/2023 Active LORazepam (ATIVAN) 1 MG tablet TAKE 1 TABLET BY MOUTH EVERY 8 HOURS NEEDED FOR ACUTE ANXIETY 0 06/18/2023 Active pravastatin (PRAVACHOL) 10 MG tabletIndications:Hyp ertriglyceridemia Take 1 tablet (10 mg total) by mouth 1 (one) time each day 30 tablet 2 06/27/2023 Active lisinopril (ZESTRIL) 10 MG tabletIndications:Jennifer prabha hypertension Take 1 tablet (10 mg total) by mouth 1 (one) time each day 30 tablet 2 06/27/2023 Active omeprazole (PriLOSEC) [address] capsuleIndications:Ch ronic alcoholic gastritis, presence of bleeding unspecified Take 1 capsule (20 mg total) by mouth 1 (one) time each day 30 capsule 1 07/17/2023 Active Active Problems Problem Noted Date Diagnosed Date Alcohol use disorder 06/27/2023 Chronic alcoholic gastritis 06/27/2023 Primary hypertension 06/27/2023 Brugada syndrome 02/04/2022 Overview: Diagnosed [place] [address] [facility]. He has an intermittent Brugada pattern. He has no history of syncope. This pattern is also present in his mother and sister. He was seen by Cardiology at that time and was felt to be at very low risk for symptomatic events, less than 1% per year. Hypertriglyceridemia 01/31/2022 Ascending aortic aneurysm 01/31/2022 Immunizations Name Administration Dates Next Due Hepatitis A 04/30/2005 Influenza 6mo-64yrs Quad Preservative Free IM Tdap 08/11/2015,08/13/2013 Social History Tobacco Use Types Packs/Day Years Used Date Smoking Tobacco: Every Day Cigarettes 0.5 Smokeless Tobacco: Never Tobacco Cessation:Ready to Q uit: No; Counseling Given: No Alcohol Use Standard Drinks/Week Comments Not Currently 0 (1 standard drink = 0.6 oz pur e alcohol) Not since 06/16/2023 PHQ-2 Answer Date Recorded PHQ-9 Total Score 7 06/27/2023 Sex and Gender Information Value Date Recorded Sex Assigned at Not on file Gender Identity Not on file Sexual Orientation Not on file Last Filed Vital Signs Vital Sign Reading Time Taken Comments Blood Pressure 129/84 06/27/2023 12:51 PM EP TECHNOLOGIST Pulse 102 06/27/2023 12:51 PM EP TECHNOLOGIST Temperature 37.5 ??C (99.5 ??F) 06/27/2023 12:[address] Respiratory Rate 18 06/27/2023 12:51 PM EP TECHNOLOGIST Oxygen Saturation 97% 06/27/2023 12:51 PM EP TECHNOLOGIST Inhaled Oxygen Concentration - - Weight 83.2 kg (183 lb 8 oz) 06/27/2023 12:51 PM EP TECHNOLOGIST Height 184.5 cm (6' 0.64) 06/27/2023 12:[address] Body Mass Index 24.45 06/27/2023 12:51 PM EP TECHNOLOGIST Plan of Treatment Health Maintenance Due Date Last Done Comments CT Colonography 1976 Colonoscopy 1976 Colorectal Cancer Screening 1976 FIT-DNA 1976 Sigmoidoscopy 1976 iFOBT 1976 Pneumococcal Vaccine: Pediatrics (0 to 5 Years) and At-Risk Patients (6 to 64 Years) (1 of 2 - PCV) 1982 COVID-19 Vaccine ( - 2022-2 4 season) 2023 Influenza Vaccine (Season Ended) 2024 09/13/2022 DTaP,Tdap,and Td Vaccines (3 - Td or Tdap) 08/11/2025 08/11/2015, 08/13/2013 HPV Vaccines Aged Out No longer eligi ble based on patient's age to complete this topic
--- OUTSIDE RECORDS SUMMARY | 2023-12-02 19:32 | XMS_ITS | Encounter Summary ---
Author Name Unknown Organization [facility] Address [address] [place] [address] Care Team Providers Care Bone Crusher Name Role Phone Dre Granger M.D. Primary Care Provider [phone] Encounter Details Date Type Department Care Team (Late st Contact Info) Description 09/17/2023 Orders Only [facility]F [facility] [address] [place] [address] [address]anger M[address] [place] [address] Screening Cancer Colon Social History [...] How often do you attend chur or christian services? More than 4 times per year 09/10/2022 Do you belong to any clubs o r organizations such as protestant groups, unions, fraternal or athletic groups, or [...] Answer Date Recorded PHQ-2 Score 0 04/12/2022 [facility] - Occupational Stress Questionnaire Answer Date Recorded [...] place to sleep or slept in a chcf (including now)? No 09/10/2022 Nutrition Answer Date [...] Sex Assigned at Male 09/10/2022 9:[address] ORDERLY Gender Identity Male 09/10/2022 9:[address] ORDERLY Sexual Orientation Straight 09/10/2022 9: [address] ORDERLY documented as of this encounter Plan of Treatment Not on file documented as of this encounter Visit Diagnoses Diagnosis Screening Cancer Colon documented in this encounter Care Teams Bone Crusher Relationship Specialty Start Date End Date [place] [address] PCP - General Family Medicine 04/12/22 documented as of this encounter
--- OUTSIDE RECORDS SUMMARY | 2023-12-02 19:32 | XMS_ITS ---
Author Name Unknown Organization [facility] Address [address] [place] [address] Care Team Providers Care Office Chair Assembler Name Role Phone Unavailable Unavailable Unavailable Surgery Details Not on file Complications Check Surgery Details section. Procedure Estimated Blood Loss Check Surgery Details section. Procedure Findings Check Surgery Details section. Procedure Specimens Taken Check Surgery Details section.
--- NOTE | 2023-12-13 07:15 | W.PM.SLEEP ---
Sleep Study Details Details Interpreting Provider: Alyssa Date of Sleep Study: 12/02/23 Sleep Study Details: STUDY TYPE:? Home unattended ? BMI:? Not recorded ORDERING PROVIDER:? Alyssa INDICATION:? Concern about sleep apnea ? SLEEP SUMMARY:? 481 minutes monitored RESPIRATORY SUMMARY:? AHI 29.3 Low oxygen 77 7.3% of study oxygen less than 90% Snoring 96.5% PERIODIC LIMB MOVEMENTS OF SLEEP:? Not recorded CARDIAC:? Range 58-99, mean 77.9 IMPRESSION:? Moderate obstructive sleep apnea worse in the supine position. Significant desaturations were noted RECOMMENDATION: Treatment options include AutoSet CPAP, dental appliance and/or airway expansion surgery.
== END 2023-12-02 19:30 | disposition home or self-care (01) ==
LOC: SLEEP 19:30
PROVIDERS: PCP Family Medicine; Visit Provider Otolaryngology
DX: G47.33 Obstructive sleep apnea (adult) (pediatric) (principal)
CPT/HCPCS: 95806

== ENCOUNTER 2023-12-06 06:27 | Outpatient (CLI) | payer OTHER, SELFPAY ==
--- OUTSIDE RECORDS SUMMARY | 2023-12-06 06:29 | XMS_ITS | Referral Summary ---
Author Name Unknown Organization [facility] Address [address] [place] [address] Care Team Providers Care Learning Center Instructor Name Role Phone Dre Granger M.D. Primary Care Provider [phone] Source Comments Patient records contain information from all sites at [facility]. For routine questions regarding patient records, call [phone] during business hours, M-F 8:00 AM - 5:00 PM Central Time. Record requests for emergency care only can be directed to [phone] at any time.[facility] Encounters Date Type Department Care Team Description 09/17/2023 Orders Only [facility] [address] [place] [address] Dre Granger M.D. Screening Cancer Colon from [...] Syndrome 02/04/2022 Overview: Diagnosed in 2013 by [facility]. He has an intermittent Brugada pattern. [...] 09/10/2022 How often do you attend chur ch or druze services? More than 4 times per year 09/10/2022 Do you belong to any clubs o r organizations such as druze groups, unions, fraternal or athletic groups, or [...] Answer Date Recorded PHQ-2 Score 0 04/12/2022 [facility] of Occupat ional Health - Occupational Stress [...] place to sleep or slept in a usp (including now)? No 09/10/2022 Nutrition Answer Date [...] Sex Assigned at Male 09/10/2022 9:44 AM GERMINATION WORKER Gender Identity Male 09/10/2022 9:44 AM GERMINATION WORKER Sexual Orientation Straight 09/10/2022 9: 44 AM GERMINATION WORKER Last Filed Vital Signs Vital Sign Reading [...] Body Mass Index 22.98 07/31/2022 11:25 AM GERMINATION WORKER Plan of Treatment Not on file Procedures [...] CDT Vamshi Claros D.O. LAB BLOOD ADD-ON [facility] [address] [place] [address], [place] NPR[facility] [address] [place] [address] * (ABNORMAL) Lipid Panel (02/14/2022 9:08 AM [...] CDT Dre Granger M.D. LAB BLOOD ADD-ON [facility] [address] [place] [address], [place] NPRG [facility] [address] [place] [address] from Last 3 Months or Most Recently Relevant to Health Maintenance Care Teams Learning Center Instructor Relationship Specialty Start Date End Date Dre Granger M.D. [address] [place] [address] PCP - General Family Medicine 04/12/22
--- OUTSIDE RECORDS SUMMARY | 2023-12-06 06:29 | XMS_ITS | Clinical Summary ---
Author Name Unknown Organization [facility] Address [address] [place] [address] Care Team Providers Care Pecan Grower Name Role Phone Unavailable Primary Care Provider Unavailabl e Allergies Active Allergy Reactions Criticality Noted Date Comments Erythromycin Rash 08/11/2012 Medications Medication Sig Dispensed Refills Start Date End Date Status escitalopram (LEXAPRO) 10 MG tablet Take 1 tablet (10 mg total) by mouth 1 (one) time each day 06/10/2023 Active gabapentin (NEURONTIN) 300 MG capsule Take 1 capsule (300 mg total) by mouth 3 (three) times a day 06/18/2023 Active LORazepam (ATIVAN) 1 MG tablet TAKE 1 TABLET BY MOUTH EVERY 8 HOURS NEEDED FOR ACUTE ANXIETY 06/18/2023 Active pravastatin (PRAVACHOL) 10 MG tabletIndications:Hyp [...] syndrome 02/04/2022 Overview: [facility] Used Date Smoking Tobacco: Every Day Cigarettes Smokeless Tobacco: Never Tobacco Cessation:Ready to Q [...] Comments Blood Pressure 129/84 06/27/2023 12:51 PM RFID ANALYST Pulse 102 06/27/2023 12:51 PM RFID ANALYST Temperature 37.5 ??C (99.5 ??F) 06/27/2023 12:[address] Respiratory Rate 18 06/27/2023 12:51 PM RFID ANALYST Oxygen Saturation 97% 06/27/2023 12:51 PM RFID ANALYST Inhaled Oxygen Concentration - - Weight 83.2 kg (183 lb 8 oz) 06/27/2023 12:51 PM RFID ANALYST Height 184.5 cm (6' 0.64) 06/27/2023 12:[address] Body Mass Index 24.45 06/27/2023 12:51 PM RFID ANALYST Plan of Treatment Health Maintenance Due Date [...]
--- OUTSIDE RECORDS SUMMARY | 2023-12-06 06:29 | XMS_ITS | Clinical Summary ---
Author Name Unknown Organization [facility] Address [address] [place] [address] Care Team Providers Care Environmental Change Analyst Name Role Phone Dre Granger M.D. Primary Care Provider [phone] Source Comments Patient records contain information from all sites at [facility]. For routine questions regarding patient records, call [phone] during business hours, M-F 8:00 AM - 5:00 PM Central Time. Record requests for emergency care only can be directed to [phone] at any time.[facility] Allergies Active Allergy Reactions Criticality Noted Date [...] Syndrome 02/04/2022 Overview: Diagnosed in 2013 by [facility]. He has an intermittent Brugada pattern. He [...] Orders Only [facility] S[facility]F [facility] [address] [place] [address] Dre Granger M.D. Screening Cancer Colon from [...] week 09/10/2022 How often do you attend [facility] or scientology services? More than 4 times per year 09/10/2022 Do you belong to any clubs o r organizations such as taoist groups, unions, fraternal or athletic groups, or [...] Answer Date Recorded PHQ-2 Score 0 04/12/2022 [facility] of Occupat ional Health - Occupational Stress [...] Sex Assigned at Male 09/10/2022 9:44 AM CLINIC MANAGER Gender Identity Male 09/10/2022 9:44 AM CLINIC MANAGER Sexual Orientation Straight 09/10/2022 9: 44 AM CLINIC MANAGER Last Filed Vital Signs Vital Sign Reading [...] Body Mass Index 22.98 07/31/2022 11:25 AM CLINIC MANAGER Plan of Treatment Health Maintenance Due Date [...] Risk 2-dose series) 10/29/2005 04/30/2005 COVID-19 Vaccine (1 - 24 season) 2023 Tobacco Cessation counseling 04/12/2023 04/12/2022 [...] CDT Vamshi Claros D.O. LAB BLOOD ADD-ON [facility] [address] [place] [address], [facility] NPRG [facility] [address] [place] [address] * (ABNORMAL) Lipid Panel (02/14/2022 9:08 AM [...] CDT Dre Granger M.D. LAB BLOOD ADD-ON [facility] [address] [place] [address], [facility] NPRG [facility] [address] [place] [address] from Last 3 Months or Most Recently Relevant to Health Maintenance Care Teams Environmental Change Analyst Relationship Specialty Start Date End Date [place] [address] PCP - General Family Medicine 04/12/22
--- OUTSIDE RECORDS SUMMARY | 2023-12-06 06:30 | XMS_ITS | Clinical Summary ---
Author Name Unknown Organization [facility] Address [address] [address] Phone Care Team Providers Care Mission Systems Engineer Name Role Phone Unavailable Primary Care Provider [...] Comments Blood Pressure 144/71 08/11/2012 8:58 AM PROCESS IMPROVEMENT ENGINEER Pulse 66 08/11/2012 8:58 AM PROCESS IMPROVEMENT ENGINEER Temperature 36.5 ??C (97.7 ??F) 08/11/2012 7:48 AM CS T Respiratory Rate 14 08/11/2012 8:58 AM PROCESS IMPROVEMENT ENGINEER Oxygen Saturation 98% 08/11/2012 8:58 AM PROCESS IMPROVEMENT ENGINEER Inhaled Oxygen Concentration - - Weight 86.2 kg (190 lb) 08/11/2012 7:48 AM PROCESS IMPROVEMENT ENGINEER Height 180.3 cm (5' 11) 08/11/2012 7:48 AM PROCESS IMPROVEMENT ENGINEER Body Mass Index 26.5 08/11/2012 7:48 AM PROCESS IMPROVEMENT ENGINEER Plan of Treatment Not on file
--- OUTSIDE RECORDS SUMMARY | 2023-12-06 06:30 | XMS_ITS | Clinical Summary ---
Author Name Unknown Organization [facility] Address [address], [place] [address] Care Team Providers Care Graphite Grinder Name Role Phone Unavailable Primary Care Provider Unavailabl e Source Comments You are receiving this document as you are listed as the primary care provider,follow-up provider, or the patient has been referred to you for consultation.This is in compliance with the Medicare and[facility] EHR Incentive Program,which states Providers who transition their patient to another setting of careor provider of care or refers their patient to another provider of care shouldprovide summary care record for each transition of care or referral. [facility] Allergies Active Allergy Reactions Criticality Noted Date [...] Comments Blood Pressure 131/90 07/09/2016 2:28 PM FLAME CUTTING MACHINE OPERATOR HELPER Pulse 83 07/09/2016 2:28 PM FLAME CUTTING MACHINE OPERATOR HELPER Temperature 36.7 ??C (98 ??F) 07/09/2016 2:28 PM FLAME CUTTING MACHINE OPERATOR HELPER Respiratory Rate 17 07/09/2016 2:28 PM FLAME CUTTING MACHINE OPERATOR HELPER Oxygen Saturation 98% 06/29/2016 9:28 AM FLAME CUTTING MACHINE OPERATOR HELPER Inhaled Oxygen Concentration - - Weight - [...] Workers Comp Self [address] [place] [address]
--- OUTSIDE RECORDS SUMMARY | 2023-12-06 06:30 | XMS_ITS | Encounter Summary ---
Author Name Unknown Organization [facility] [place] [facility] Address [address] [place] [address] Care Team Providers Care Heel Washer Stringing Machine Operator Name Role Phone Dre Granger M.D. Primary Care Provider [phone] Encounter Details Date Type Department Care Team (Late st Contact Info) Description 09/03/2023 Orders Only [facility] SELF [facility] [address] [place] [id number] Dre Granger M[address]D. [address] [place] [address] Screening Cancer Colon Social History [...] How often do you attend chur or caodaism services? More than 4 times per year 09/10/2022 Do you belong to any clubs o r organizations such as moravian groups, unions, fraternal or athletic groups, or [...] Answer Date Recorded PHQ-2 Score 0 04/12/2022 [facility] of Occupat ional [facility] - Occupational Stress Questionnaire Answer Date [...] place to sleep or slept in a skilled nursing (including now)? No 09/10/2022 Nutrition Answer Date [...] Sex Assigned at Male 09/10/2022 9:44 AM BOX TRUCK WASHER Gender Identity Male 09/10/2022 9:44 AM BOX TRUCK WASHER Sexual Orientation Straight 09/10/2022 9: 44 AM BOX TRUCK WASHER documented as of this encounter Plan of Treatment Scheduled Orders Name Type Priority Associated Diagnoses Orde r Schedule Cologuard - Sent Out Lab Lab Routine Screening Cancer Colon Expected: 09/17/2023 (Approximate), Expires: 12/01/2024 documented as of this encounter Visit Diagnoses Diagnosis Screening Cancer Colon documented in this encounter Care Teams Heel Washer Stringing Machine Operator Relationship Specialty Start Date End Date [place] [address] PCP - General Family Medicine 04/12/22 documented as of this encounter
--- OUTSIDE RECORDS SUMMARY | 2023-12-06 06:30 | XMS_ITS | Encounter Summary ---
Author Name Unknown Organization [facility] Address [address] [place] [address] Care Team Providers Care New Car Inspector Name Role Phone Dre Granger M.D. Primary Care Provider [phone] Encounter Details Date Type Department Care Team (Late st Contact Info) Description 09/17/2023 Orders Only [facility] S[facility]F [facility] [address] [place] [address] Dre Granger M.D. [address] [place] [address] Screening Cancer Colon Social History [...] any clubs o r organizations such as yazidi groups, unions, fraternal or athletic groups, or [...] Answer Date Recorded PHQ-2 Score 0 04/12/2022 [facility] of Occupat ional [facility] - Occupational Stress Questionnaire Answer Date [...] Sex Assigned at Male 09/10/2022 9:44 AM MOTION PICTURE FILM EXAMINER Gender Identity Male 09/10/2022 9:44 AM MOTION PICTURE FILM EXAMINER Sexual Orientation Straight 09/10/2022 9: 44 AM MOTION PICTURE FILM EXAMINER documented as of this encounter Plan of Treatment Not on file documented as of this encounter Visit Diagnoses Diagnosis Screening Cancer Colon documented in this encounter Care Teams New Car Inspector Relationship Specialty Start Date End Date [place] [address] PCP - General Family Medicine 04/12/22 documented as of this encounter
--- OUTSIDE RECORDS SUMMARY | 2023-12-06 06:30 | XMS_ITS ---
Author Name Unknown Organization [facility] Address [address] [place] [address] Care Team Providers Care Airport Guide Name Role Phone Unavailable Unavailable Unavailable Surgery Details Not on file Complications Check Surgery Details section. Procedure Estimated Blood Loss Check Surgery Details section. Procedure Findings Check Surgery Details section. Procedure Specimens Taken Check Surgery Details section.
--- NOTE | 2023-12-06 07:44 | W.ANESCHARGE ---
Anesthesia Charges Start Date/Time Anesthesia Start Date: 12/06/23 Anesthesia Start Time: 07:17 Stop Date/Time Anesthesia Stop Date: 12/06/23 Anesthesia Stop Time: 07:37
--- NOTE | 2023-12-06 08:46 | W.ANESCHARGE ---
Anesthesia Charges Start Date/Time Anesthesia Start Date: 12/06/23 Anesthesia Start Time: 07:17 Stop Date/Time Anesthesia Stop Date: 12/06/23 Anesthesia Stop Time: 07:37
== END 2023-12-06 06:28 | disposition home or self-care (01) ==
LOC: OP CLINIC 06:27
PROVIDERS: PCP Family Medicine; Visit Provider Internal Medicine
DX: Z12.11 Encounter for screening for malignant neoplasm of colon (principal)
CPT/HCPCS: 00811; 00812; 45378; J2704

== ENCOUNTER 2024-09-17 08:35 | Outpatient (CLI) | payer BC, SELFPAY | END 2024-09-17 08:36 | disposition home or self-care (01) | LOC: NFLDREF 09-21 18:52 | PROVIDERS: PCP Family Medicine; Referring Provider Family Medicine; Visit Provider Family Medicine | DX: E78.1 Pure hyperglyceridemia (principal); I10 Essential (primary) hypertension; F32.A Depression, unspecified | CPT/HCPCS: 80053; 80061 ==

== ENCOUNTER 2025-01-14 08:59 | Emergency (ER) | payer OTHER, SELFPAY ==
--- OUTSIDE RECORDS SUMMARY | 2025-01-14 09:02 | XMS_ITS | Clinical Summary ---
Author Organization [facility] Address [address] [place] [address] Care Team Providers Care Farm General Manager Name Role Phone Jackelyn Granger MD Primary Care Provider [phone] Allergies Active Allergy Reactions Criticality Noted Date Comments Erythromycin Rash 08/11/2012 Medications escitalopram (LEXAPRO) 10 MG tablet Take 1 tablet (10 mg total) by mouth 1 (one) time each day 3 Active gabapentin (NEURONTIN) 300 MG capsule Take 1 capsule (300 mg total) by mouth 3 (three) times a day 3 Active LORazepam (ATIVAN) 1 MG tablet TAKE 1 TABLET BY MOUTH EVERY 8 HOURS NEEDED FOR ACUTE ANXIETY 3 Active pravastatin (PRAVACHOL) 10 MG tabletIndications :Hypertriglycerid emia Take 1 tablet (10 mg total) by mouth 1 (one) time each day 30 tablet 2 3 Active lisinopril (ZESTRIL) 10 MG tabletIndications :Primary hypertension Take 1 tablet (10 mg total) by mouth 1 (one) time each day 30 tablet 2 3 Active omeprazole (PriLOSEC) [address] capsuleIndication s:Chronic alcoholic gastritis, presence of bleeding unspecified Take 1 capsule (20 mg total) by mouth 1 (one) time each day 30 capsule 1 3 Active Active Problems Problem Noted Date Diagnosed Date Alcohol use disorder 06/27/2023 Chronic alcoholic gastritis 06/27/2023 Primary hypertension 06/27/2023 Brugada syndrome 02/04/2022 Overview (06/27/2023): Diagnosed in 2013 by [facility]. He has an intermittent Brugada pattern. He has no history of syncope. This pattern is also present in his mother and sister. He was seen by Cardiology at that time and was felt to be at very low risk for symptomatic events, less than 1% per year. 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 Gender Identity Not on file Sexual Orientation Not on file Last Filed Vital Signs Vital Sign Reading Time Taken Comments Blood Pressure 129/84 06/27/2023 12:51 PM PROFESSIONAL DRIVER Pulse 102 06/27/2023 12:51 PM PROFESSIONAL DRIVER Temperature 37.5 C (99.5 F) 06/27/2023 12:51 PM PROFESSIONAL DRIVER Respiratory Rate 18 06/27/2023 12:51 PM PROFESSIONAL DRIVER Oxygen Saturation 97% 06/27/2023 12:51 PM PROFESSIONAL DRIVER Inhaled Oxygen Concentration - - Weight 83.2 kg (183 lb 8 oz) 06/27/2023 12:51 PM PROFESSIONAL DRIVER Height 184.5 cm (6' 0.64) 06/27/2023 12:[address] Body Mass Index 24.45 06/27/2023 12:51 PM PROFESSIONAL DRIVER Plan of Treatment Health Maintenance Due Date Last Done Comments CT Colonography 1976 Colonoscopy 1976 Colorectal Cancer Screening 1976 FIT-DNA 1976 Sigmoidoscopy 1976 iFOBT 1976 Pneumococcal Vaccine: Pediatrics (0 to 5 Years) and At-Risk Patients (6 to 49 Years) (1 of 2 - PCV) 1995 COVID-19 Vaccine (1 - 2023-2 5 season) 2024 DTaP,Tdap,and Td Vaccines (4 - Td or Tdap) 09/17/2034 09/17/2024, 08/11/2015, 08/13/2013 Influenza Vaccine Completed 09/17/2024, 09/13/2022 HPV Vaccines Aged Out No longer eligi ble based on patient's age to complete this topic Insurance [employer] [place] [id number] Care Teams Farm General Manager Relationship Specialty Start Date End Date Jackelyn Granger MD [address] [place] [address] PCP - General 10/28/24
--- OUTSIDE RECORDS SUMMARY | 2025-01-14 09:02 | XMS_ITS | Clinical Summary ---
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 Gender Identity Not on file Sexual Orientation Not on file Last Filed Vital Signs Vital Sign Reading Time Taken Comments Blood Pressure 144/71 08/11/2012 8:58 AM MANAGER OPERATIONS RESEARCH Pulse 66 08/11/2012 8:58 AM MANAGER OPERATIONS RESEARCH Temperature 36.5 C (97.7 F) 08/11/2012 7:48 AM MANAGER OPERATIONS RESEARCH Respiratory Rate 14 08/11/2012 8:58 AM MANAGER OPERATIONS RESEARCH Oxygen Saturation 98% 08/11/2012 8:58 AM MANAGER OPERATIONS RESEARCH Inhaled Oxygen Concentration - - Weight 86.2 kg (190 lb) 08/11/2012 7:48 AM MANAGER OPERATIONS RESEARCH Height 180.3 cm (5' 11) 08/11/2012 7:48 AM MANAGER OPERATIONS RESEARCH Body Mass Index 26.5 08/11/2012 7:48 AM MANAGER OPERATIONS RESEARCH Plan of Treatment Not on file Insurance [facility]
--- OUTSIDE RECORDS SUMMARY | 2025-01-14 09:02 | XMS_ITS | Clinical Summary ---
Author Organization [facility] Address [address], [place] [address] Care Team Providers Care Tool And Die Repairer Name Role Phone Unavailable Primary Care Provider Unavailabl e Source Comments You are receiving this document as you are listed as the primary care provider,follow-up provider, or the patient has been referred to you for consultation.This is in compliance with the Medicare and[facility] Cent[facility]aid EHR Incentive Program,which states Providers who transition their patient to another setting of careor provider of care or refers their patient to another provider of care shouldprovide summary care record for each transition of care or referral. [employer] Allergies Active Allergy Reactions Criticality Noted Date Comments Azithromycin 06/29/2016 Medications BuPROPion HCl (WELLBUTRIN OR) Acti ve pravastatin (PRAVACHOL) 10 MG tablet Take 10 mg by mouth daily at bedtime. Active MULTIPLE VITAMIN OR Active acetaminophen-co deine (TYLENOLNO.3) 300-30 MG tablet Take 1-2 Tabs by mouth every 6 hours as needed for Pain. 15 Tab 0 06/29/2016 Active Active Problems No known active problems Immunizations Immunization Administration Dates Next Due Tdap 08/11/2015 Social History Tobacco Use Types Packs/Day Years Used Date Smoking Tobacco: Former Sex and Gender Information Value Date Recorded Sex Assigned at Not on file Legal Sex Male 5:41 PM CDT Gender Identity Not on file Sexual Orientation Not on file Last Filed Vital Signs Vital Sign Reading Time Taken Comments Blood Pressure 131/90 07/09/2016 2:28 PM RESISTANCE WELDING MACHINE OPERATOR Pulse 83 07/09/2016 2:28 PM RESISTANCE WELDING MACHINE OPERATOR Temperature 36.7 C (98 F) 07/09/2016 2:28 PM RESISTANCE WELDING MACHINE OPERATOR Respiratory Rate 17 07/09/2016 2:28 PM RESISTANCE WELDING MACHINE OPERATOR Oxygen Saturation 98% 06/29/2016 9:28 AM RESISTANCE WELDING MACHINE OPERATOR Inhaled Oxygen Concentration - - Weight - - Height - - Body Mass Index - - Plan of Treatment Health Maintenance Due Date Last Done Comments Colon Cancer Screening Plan Due 1976 Hep C Screening (Preventive Services) 1976 HIV Screening (Preventive Services) 1992 Adult Preventive Visit 1994 HepB Vaccine (1) 1995 Cholesterol 2011 COVID-19 Vaccine (1 - 2023-2 5 season) 2024 Influenza Vaccine (Season Ended) 2025 DTaP/Tdap/Td Vaccine (2 - Tdap) 08/11/2025 6 Zoster/Shingles Vaccine (1 of 2) 2026 HepA Vaccine Aged Out No longer eligi ble based on patient's age to complete this topic Hib Vaccine Aged Out No longer eligi ble based on patient's age to complete this topic IPV (Polio) Vaccine Aged Out No longe r eligible based on patient's age to complete this topic MCV4 Vaccine Aged Out No longer eligi ble based on patient's age to complete this topic Meningococcal B Vaccine Aged Out No l onger eligible based on patient's age to complete this topic Pneumococcal Vaccine Aged Out No long er eligible based on patient's age to complete this topic Insurance [facility] [employer] [facility] [employer]
--- OUTSIDE RECORDS SUMMARY | 2025-01-14 09:02 | XMS_ITS | Encounter Summary ---
Author Organization [facility] Address [address] [place] [address] Care Team Providers Care Improvement Engineer Name Role Phone Jackelyn Granger MD Primary Care Provider [phone] Reason for Visit * Reason Onset Date Comments Registry Management 12/01/2024 Encounter Details Date Type Department Care Team (Late st Contact Info) Description 12/01/2024 Telephone [facility] - [address] [place] [phone] Jackelyn Granger MD [address] [place], [place] [id number] Registry Management Social History Tobacco Use Types Packs/Day Years Used Date Smoking Tobacco: Every Day Cigarettes Smokeless Tobacco: Never Alcohol Use Standard Drinks/Week Comments Not Currently 0 (1 standard drink = 0.6 oz pur e alcohol) Not since 06/16/2023 PHQ-2 Answer Date Recorded PHQ-9 Total Score 7 06/27/2023 Sex and Gender Information Value Date Recorded Sex Assigned at Not on file Legal Sex Male 1:17 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 Dre Granger documented in this encounter Plan of Treatment Not on file documented as of this encounter Visit Diagnoses Not on filedocumented in this encounter Care Teams Improvement Engineer Relationship Specialty Start Date End Date Jackelyn Granger MD [address] [place] [address] PCP - General 10/28/24 documented as of this encounter
[2025-01-14 10:03] VITALS: BP 114/70; PULSE 123; RESP 20; TEMP 37.2; O2SAT 94; BMI 26.0
--- NOTE | 2025-01-14 10:11 | ED.FEVER ---
HPI - Fever General Time Seen by Provider: 10:11 Date Seen: 01/14/25 Chief Complaint: Fever Stated Complaint: fever- dehydration Time Seen by Provider: 01/14/25 10:06 Source: patient and RN notes reviewed Mode of arrival: ambulatory Limitations: no limitations History of Present Illness HPI Narrative: This 49-year-old male is coming in with reports of fever and illness starting Saturday. He noticed a small red area on his right anterior shoulder, right upper arm area that was a little sore at that time. The area has been spreading, becoming more sore. He feels some pain in his armpit on that side. He has been having fevers, initially Saturday he just felt assistant purchasing manager the did not take his temperature. He has had temperatures up to 102 yesterday. He has been sweating, has generalized headache, body aches. Yesterday he started having nausea and then vomiting. He states he cannot keep anything in. He has not had any diarrhea, denies any abdominal pain. He maybe has a little bit of a cough. 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 He never did note any bug bite at any specific time, never did find any tick on himself. He is not noting any palpitations or irregular heartbeat, no chest pain. MD elicited complaint: fever Related Data Home Medications ?Medication ?Instructions ?Recorded ?Confirmed gabapentin 400 mg capsule 400 mg PO TID 09/12/23 01/14/25 multivitamin 1 tab PO QDAY 09/17/24 01/14/25 mirtazapine 15 mg tablet 7.5 mg PO DAILY 01/14/25 01/14/25 sildenafil 50 mg tablet 50 - 100 mg PO DAILY PRN 01/14/25 01/14/25 Previous Rx's ?Medication ?Instructions ?Recorded bupropion HCl 150 mg 24 hr tablet, 150 mg PO QAM #90 tabs 09/17/24 extended release Held on 01/14/25. Instructions: weaning down bupropion HCl 300 mg 24 hr tablet, 300 mg PO DAILY #90 tabs 09/17/24 extended release escitalopram oxalate 10 mg tablet 10 mg PO QDAY #90 tabs 09/17/24 fenofibrate nanocrystallized 145 145 mg PO DAILY #90 tabs 09/17/24 mg tablet lisinopril 10 mg tablet 10 mg PO DAILY #90 tabs 09/17/24 atorvastatin 20 mg tablet 20 mg PO QHS #90 tabs 09/29/24 doxycycline hyclate 100 mg tablet 100 mg PO BID #27 tabs 01/14/25 ondansetron 4 mg disintegrating 4 mg PO Q6H PRN nausea and 01/14/25 tablet vomiting #20 tabs Allergies Allergy/AdvReac Type Severity Reaction Status Date / Time erythromycin base Allergy Verified 01/14/25 10:01 Review of Systems Status of ROS Reports: 6 or more systems reviewed and unremarkable except as noted in History and below PFSH PFS Medical History Unexplained weight loss ?R63.4 - Abnormal weight loss (ICD-10) Fatigue ?R53.83 - Other fatigue (ICD-10) Hepatitis ?K75.9 - Inflammatory liver disease, unspecified (ICD-10) 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 ?K70.0 - Alcoholic fatty liver (ICD-10) Alcohol use disorder ?F10.90 - Alcohol use, unspecified, uncomplicated (ICD-10) Weight loss ?R63.4 - Abnormal weight loss (ICD-10) Dizziness ?R42 - Dizziness and giddiness (ICD-10) Brugada syndrome ?I49.8 - Other specified cardiac arrhythmias (ICD-10) Nicotine abuse ?Z72.0 - Tobacco use (ICD-10) Hallucinations ?R44.3 - Hallucinations, unspecified (ICD-10) Diarrhea ?R19.7 - Diarrhea, unspecified (ICD-10) Surgical History History of nasal surgery ?Z98.890 - Other specified postprocedural states (ICD-10) Family History Mother Brugada syndrome Sister Brugada syndrome Father Diabetes High blood pressure Social History Narrative: 47-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 He lives in [place] with his and 2 children ages 16 and 18. He vapes tobacco, 1 vape pen per week. This is approximately equivalent to 5 smoking 5 packs of cigarettes per week. He does not use cannabis or other recreational drugs. Alcohol consumption is daily with a variable amount, at least 5 beers per day up to 8 or 9. He is present in the hospital with his who appears to be very supportive of him getting help for alcohol withdrawal. He is motivated to get help as well. What is your current living situation?: I presently have a place to live Problems where you live: no known problems Problems where you live details: none In the past 12 months, utilities in danger of being shut off: no In past 12 months, lack of transportation kept you from medical appts, meetings, work, or getting things needed for daily living: no In the past 12 mos, have been you worried that your food would run out before you had money to buy more?: never true In the past 12 mos, the food you bought just didn't last and you didn't have money to buy more?: never true Highest level of school completed/degree received: Associate degree: occupational, technical, vocational program Smoking Status: Current some day smoker What tobacco products do you use: cigarettes Smoking packs per day: 1 Smoking cigarettes per day: 20.0 Smoking quit date/years: <= 15 years ago Do you use any of these nicotine containing products: Vaping Products Smokeless tobacco user details: Vapes Nicotine containing products detail: since October of 2022 Second hand tobacco smoke exposure: No How often do you have a drink containing alcohol: 4 or more times a week Alcohol type: beer and hard liquor Alcohol type details: gena to start then mostly beer 2-5 drinks a day How many standard drinks containing alcohol do you have on a typical day: 5 or 6 How often do you have six or more drinks on one occasion: Never AUDIT-C Alcohol total score: 6 Non-prescribed substance use: denies use Caffeine: Yes (2 diet MT dews a day) How often does anyone, including family, friends and others, physically hurt you: never How often does anyone, including family, friends and others, insult or talk down to you: never How often does anyone, including family, friends and others, threaten you with harm: never How often does anyone, including family, friends and others, scream or curse at you: never service: No Exam Const Vital Signs, click to edit/add: Vital Signs - 24 hr 01/14/25 10:03 01/14/25 10:15 01/14/25 12:05 Temperature 98.9 F Pulse Rate [Pulse Oximeter] 123 H 87 Respiratory Rate 20 16 Blood Pressure [Right Upper Arm] 114/70 100/82 Pulse Oximetry 94 97 98 Oxygen Delivery Method Room Air Room Air This 49-year-old male is alert, interactive, no apparent distress. Sclera clear, able speak in complete sentences. Symmetrical facial function. Neck is supple, no adenopathy. Lungs are clear, good air entry, no wheezing or crackles, no tachypnea, no accessory muscle use. CV regular but fast, no murmur, normal S1-S2, no S3-S4. Abdomen is soft, nontender, nondistended, no organomegaly, rebound or guarding, normal bowel sounds. He has an erythematous circular area overlying the anterior right shoulder/right upper arm. There is about a central knuckle erythematous central area with a punctate center that looks like it this was probably some type of a bite. There is a border of increasing slight pink erythema around this. It is slightly tender when I palpate, the erythematous areas more indurated but the more peripheral area is not. There is no fluctuance. He does have some painful right axillary adenopathy. He has no lower extremity edema, no calf tenderness. Documenting provider has reviewed patient's vital signs: yes Course Course ED Course: This patient is presenting with illness, does have a lesion on his left anterior shoulder area/upper arm which could be an early tick bite. Certainly seems like it is some type a bug bite. He never did find it tick on this but this area is expanding. Do suppose a secondary cellulitis is possible. However, he is having some GI issues, maybe some slight cough which I would not anticipate with cellulitis. Do wonder if this is tick-borne pathology. Will initiate IV fluids, some Zofran for symptom relief. Will initiate some basic labs. Reevaluation(s) Time of Reevaluation #1: 10:57 Reevaluation #1: Patient has had small amount of his IV fluids in, Zofran is on board any states he is already feeling better. Reviewed with him that the tick panel will take few days to come back. Would like to look at some of his initial labs. Presumably at this point will likely treat for tick-borne pathology but will reassess as his labs come back. Glad to hear he is already feeling a bit better. Did just here the patient coughing a bit more. Do think I am going to get a portable chest x-ray on him. Time of Reevaluation #2: 12:13 Reevaluation #2: Reviewed with patient his labs and chest x-ray. We are going to cover empirically for tick-borne disease, have ordered 100 mg IV doxycycline. They are in agreement with that, prefer to treat. Vital Signs Vital signs: Initial Vital Signs Temperature 98.9 F 01/14/25 10:03 Temperature Source Temporal Artery Scan 01/14/25 10:03 Pulse Rate 123 H 01/14/25 10:03 Respiratory Rate 20 01/14/25 10:03 Blood Pressure 114/70 01/14/25 10:03 Blood Pressure Mean 84 01/14/25 10:03 Pulse Oximetry 94 01/14/25 10:03 Oxygen Delivery Method Room Air 01/14/25 10:03 Vital Signs Temperature 98.9 F 01/14/25 10:03 Pulse Rate 123 H 01/14/25 10:03 Respiratory Rate 20 01/14/25 10:03 Blood Pressure 114/70 01/14/25 10:03 Pulse Oximetry 94 01/14/25 10:03 Oxygen Delivery Method Room Air 01/14/25 10:03 Temperature 98.9 F 01/14/25 10:03 Pulse Rate 87 01/14/25 12:05 Respiratory Rate 16 01/14/25 12:05 Blood Pressure 100/82 01/14/25 12:05 Pulse Oximetry 98 01/14/25 12:05 Oxygen Delivery Method Room Air 01/14/25 12:05 Medications Administered Medications: Discontinued Medications Generic Name Dose Route Start Last Admin Trade Name Freq PRN Reason Stop Dose Admin Sodium Chloride 1,000 mls @ 1,000 mls/hr 01/14/25 10:16 01/14/25 12:05 0.9 % Sodium Chloride 1000 Ml IV 01/14/25 11:15 Infused .Q1H HUMBERTO Infusion Doxycycline Hyclate 100 mg/ 100 mls @ 100 mls/hr 01/14/25 12:12 01/14/25 12:33 Sodium Chloride IVPB 01/14/25 12:13 100 mls/hr ONCE ONE Administration Ondansetron HCl 4 mg 01/14/25 10:16 01/14/25 10:52 Ondansetron 2 Mg/Ml Inj IVP 01/14/25 10:17 4 mg ONCE ONE Administration MDM - Fever Lab Data Attestation: I reviewed the patient's lab results. Labs: Lab Results 01/14/25 Range/Units 10:55 WBC 9.61 (4.50-11.00) K/uL RBC 4.70 (4.30-5.90) m/uL Hgb 13.9 (13.5-17.5) gm/dL Hct 41.8 (37.0-53.0) % MCV 89 (80-100) fL MCH 30 (26-34) pg MCHC 33 (32-36) gm/dL RDW Coeff of Noah 12.2 (11.5-15.5) % Plt Count 211 (140-440) K/uL Neut % (Auto) 77.2 H (42.0-72.0) % Lymph % (Auto) 14.5 L (20-44) % Arroyo % (Auto) 7.6 (0.0-11.0) % Eos % (Auto) 0.0 (0.0-7.0) % Baso % (Auto) 0.3 (0.0-3.0) % Neut # (Auto) 7.40 H (1.7-7.0) K/uL Lymph # (Auto) 1.40 (0.90-2.90) K/uL Arroyo # (Auto) 0.70 (0.00-0.90) K/UL Eos # (Auto) 0.00 (0.00-0.50) K/uL Baso # (Auto) 0.03 (0.00-0.30) K/uL Abs Immat Gran (auto) 0.04 (0.00-0.30) K/uL Imm/Tot Granulo (auto) 0.4 % Sodium 134 L (135-149) mmol/L Potassium 4.1 (3.6-5.1) mmol/L Chloride 101 (96-114) mmol/L Carbon Dioxide 20 (20-32) mmol/L Anion Gap 13 (7-15) mEq/L BUN 16 (5-24) mg/dL Creatinine 1.4 (0.5-1.5) mg/dL Estimated Creat Clear 70.83 Estimated GFR 62 ml/min Glucose 125 H (60-115) mg/dL Lactate 1.2 (0.5-1.9) mmol/L Calcium 9.4 (8.4-10.6) mg/dL Total Bilirubin 0.6 (0.1-1.5) mg/dL AST 45 H (12-35) U/L ALT 30 (4-50) U/L Alkaline Phosphatase 68 (40-150) U/L Total Protein 8.1 (6.0-8.3) g/dL Albumin 5.0 (3.3-5.0) g/dL Imaging Data Chest x-ray: Attestation: I have reviewed the pertinent imaging results. Radiologist's impression: Patient: TIMOTHY LEMUS Facility:?[facility] Patient ID:?[id number] Site Patient ID:?[id number]. Site :?[id number] Study:?XRay-Chest 1V PORTABLE-01/14/2025 11:42:00 AM Ordering Physician:?Regina Saunders Final Report: Indication: Cough and fever Comparison: None available. Technique: Single AP view chest Findings: There is no focal consolidation, effusion, or pneumothorax. The cardiomediastinal silhouette is within normal limits. The bony thorax is grossly intact. Impression: No acute cardiopulmonary abnormality. Dictated by Franklin Gomez MD @ 01/14/2025 11:58:25 AM (Electronic Signature) ECG Data Attestation: I personally reviewed and interpreted this ECG as follows: (Normal sinus rhythm, 85 beats per minute. No ischemia, no arrhythmia. Heart rate has improved from admission, IV fluids had been started when EKG obtained.) ECG interpretation date: 01/14/25 ECG interpretation time: 11:09 Discharge Plan Discharge Clinical Impression: Fever, Nausea and vomiting, Rash Patient Disposition: Home, Self-Care Condition: Stable Instructions: Lyme Disease (ED), Tick Bite (ED), Acute Nausea and Vomiting (ED) Additional Instructions: Continue with the doxycycline as prescribed, do recommend taking a dose tonight before bed. Need to try to protect her skin will on doxycycline, can make you more photosensitive. Where hat, sunscreen, long sleeve clothing. Can use Zofran if needed for further nausea or vomiting. It will take a few days for the Lyme test and the tick-borne panel to come back. I do suspect that you may have Lyme disease and that the lesion on your right arm could be an early erythema migrans. Continue to monitor your symptoms, if you are not improving over the next few days, are worsening or have further concerns, please seek re-evaluation. Activity Level: Activity as Tolerated Prescriptions: New ondansetron 4 mg tablet,disintegrating 4 mg PO Q6H PRN (Reason: nausea and vomiting) Qty: 20 0RF doxycycline hyclate 100 mg tablet 100 mg PO BID Qty: 27 0RF No Action multivitamin Tablet 1 tab PO QDAY bupropion HCl 300 mg tablet extended release 24 hr 300 mg PO DAILY Qty: 90 3RF bupropion HCl 150 mg tablet extended release 24 hr 150 mg PO QAM Qty: 90 3RF escitalopram oxalate 10 mg tablet 10 mg PO QDAY Qty: 90 3RF fenofibrate nanocrystallized 145 mg tablet 145 mg PO DAILY Qty: 90 3RF lisinopril 10 mg tablet 10 mg PO DAILY Qty: 90 3RF gabapentin 400 mg capsule 400 mg PO TID sildenafil 50 mg tablet 50 - 100 mg PO DAILY PRN mirtazapine 15 mg tablet 7.5 mg PO DAILY atorvastatin 20 mg tablet 20 mg PO QHS Qty: 90 3RF Follow Up/Referrals: Tito Lucas MD [Primary Care Provider, Family Practice] Stand Alone Forms: Work/School Release, [facility] Info Instructions
[2025-01-14 10:15] VITALS: O2SAT 97
[2025-01-14] MEDS: 0.9 % SODIUM CHLORIDE 1000 ml 1,000 ML IV (10:52)
[2025-01-14] MEDS: ONDANSETRON 2 MG/ML inj 4 MG IVP (10:52)
[2025-01-14 11:00] LABS: Lactate* 1.2 mmol/L (0.5-1.9)
--- NOTE | 2025-01-14 11:00 | CRLHL7_ITS ---
For Patients: As a result of the Cures Act, medical imaging exams and procedure reports are released immediately into your electronic medical record. You may view this report before your referring provider. If you have questions, please contact your health care provider. Indication: Cough and fever Comparison: None available. Technique: Single AP view chest Findings: There is no focal consolidation, effusion, or pneumothorax. The cardiomediastinal silhouette is within normal limits. The bony thorax is grossly intact. Impression: No acute cardiopulmonary abnormality. Dictated by Franklin Gomez MD @ 01/14/2025 11:58:25 AM (Electronically Signed)
[2025-01-14 11:04] LABS: Basophils Absolute Auto 0.03 K/uL (0.00-0.30); Basophils Percent Auto 0.3 % (0.0-3.0); Hematocrit 41.8 % (37.0-53.0); Hemoglobin* 13.9 gm/dL (13.5-17.5); Immature Granulocytes Abs Auto 0.04 K/uL (0.00-0.30); Immature Granulocytes Pct Auto 0.4 %; Lymphocytes Percent Auto 14.5 % (20-44); Mean Corpuscular HGB Conc 33 gm/dL (32-36); Mean Corpuscular Hemoglobin 30 pg (26-34); Mean Corpuscular Volume 89 fL (80-100); Monocytes Percent Auto 7.6 % (0.0-11.0); Neutrophils Percent Auto 77.2 % (42.0-72.0); Platelet Count* 211 K/uL (140-440); RDW Coefficient of Variation % 12.2 % (11.5-15.5); White Blood Count* 9.61 K/uL (4.50-11.00)
[2025-01-14 11:11] LABS: Slide Review Reflex No
[2025-01-14 11:16] LABS: Chloride* 101 mmol/L (96-114)
[2025-01-14 11:17] LABS: Potassium* 4.1 mmol/L (3.6-5.1); Sodium* 134 mmol/L (135-149)
[2025-01-14 11:19] LABS: Blood Urea Nitrogen* 16 mg/dL (5-24); Creatinine* 1.4 mg/dL (0.5-1.5); Est. Creatinine Clearance* 70.83; Estimated Glomerular Filt Rate 62 ml/min
[2025-01-14 11:20] LABS: Alanine Aminotransferase* 30 U/L (4-50); Alkaline Phosphatase* 68 U/L (40-150); Anion Gap 13 mEq/L (7-15); Aspartate Amino Transferase* 45 U/L (12-35); Bilirubin Total* 0.6 mg/dL (0.1-1.5); Calcium* 9.4 mg/dL (8.4-10.6); Carbon Dioxide* 20 mmol/L (20-32); Glucose* 125 mg/dL (60-115); Total Protein* 8.1 g/dL (6.0-8.3)
[2025-01-14 12:05] VITALS: BP 100/82; PULSE 87; RESP 16; O2SAT 98
[2025-01-14] MEDS: DOXYCYCLINE HYCLATE 100 MG in 0.9 % SODIUM CHLORIDE Mini-bag 100 ML IVPB (12:33)
== END 2025-01-14 13:47 | disposition home or self-care (01) ==
PROVIDERS: Emergency Provider Family Medicine; PCP Family Medicine
DX: R50.9 Fever, unspecified (principal); R51.9 Headache, unspecified; R21 Rash and other nonspecific skin eruption; R11.2 Nausea with vomiting, unspecified
CPT/HCPCS: 36415; 71045; 80053; 83605; 85025; 86618; 87468; 87469; 87484; 87798; 93005; 94761; 96361; 96374; 96375; 99284; 99285; J2405; J7030

== ENCOUNTER 2025-01-15 16:42 | Emergency (ER) | payer OTHER, SELFPAY ==
[2025-01-15] VITALS (19 sets, daily range): BP systolic 97–111; BP diastolic 64–78; PULSE 82–123; RESP 12–26; TEMP 36.6–39.2; O2SAT 93–96; BMI 26.0
--- OUTSIDE RECORDS SUMMARY | 2025-01-15 16:45 | XMS_ITS | Clinical Summary ---
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 Gender Identity Not on file Sexual Orientation Not on file Last Filed Vital Signs Vital Sign Reading Time Taken Comments Blood Pressure 144/71 08/11/2012 8:58 AM TANK WAGON DRIVER Pulse 66 08/11/2012 8:58 AM TANK WAGON DRIVER Temperature 36.5 C (97.7 F) 08/11/2012 7:48 AM TANK WAGON DRIVER Respiratory Rate 14 08/11/2012 8:58 AM TANK WAGON DRIVER Oxygen Saturation 98% 08/11/2012 8:58 AM TANK WAGON DRIVER Inhaled Oxygen Concentration - - Weight 86.2 kg (190 lb) 08/11/2012 7:48 AM TANK WAGON DRIVER Height 180.3 cm (5' 11) 08/11/2012 7:48 AM TANK WAGON DRIVER Body Mass Index 26.5 08/11/2012 7:48 AM TANK WAGON DRIVER Plan of Treatment Not on file Insurance [facility]
--- OUTSIDE RECORDS SUMMARY | 2025-01-15 16:45 | XMS_ITS | Clinical Summary ---
Author Organization [facility] Address [address], [place] [address] Care Team Providers Care Media Sales Executive Name Role Phone Unavailable Primary Care Provider Unavailabl e Source Comments You are receiving this document as you are listed as the primary care provider,follow-up provider, or the patient has been referred to you for consultation.This is in compliance with the Medicare and[facility] EHR Incentive Program,which states Providers who transition their patient to another setting of careor provider of care or refers their patient to another provider of care shouldprovide summary care record for each transition of care or referral. [facility] Allergies Active Allergy Reactions Criticality Noted [...] Comments Blood Pressure 131/90 07/09/2016 2:28 PM PROJECT ENG Pulse 83 07/09/2016 2:28 PM PROJECT ENG Temperature 36.7 C (98 F) 07/09/2016 2:28 PM PROJECT ENG Respiratory Rate 17 07/09/2016 2:28 PM PROJECT ENG Oxygen Saturation 98% 06/29/2016 9:28 AM PROJECT ENG Inhaled Oxygen Concentration - - Weight - [...] patient's age to complete this topic Insurance [facility] [employer] [facility] [employer]
--- OUTSIDE RECORDS SUMMARY | 2025-01-15 16:45 | XMS_ITS | Encounter Summary ---
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
--- OUTSIDE RECORDS SUMMARY | 2025-01-15 16:45 | XMS_ITS | Clinical Summary ---
Author Organization [facility] Address [address] [place] [address] Care Team Providers Care Greek Professor Name Role Phone Jackelyn Granger MD Primary Care Provider [phone] Allergies Active Allergy Reactions Criticality Noted Date [...] 02/04/2022 Overview (06/27/2023): Diagnosed in 2013 by [facility]. He has an intermittent Brugada pattern. He has no history of syncope. This pattern is also present in his mother and sister. He was seen by Cardiology at that time and was felt to be at very low risk for symptomatic events, less than 1% per year. 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 Gender Identity Not on file Sexual Orientation Not on file Last Filed Vital Signs Vital Sign Reading Time Taken Comments Blood Pressure 129/84 06/27/2023 12:51 PM SENIOR CATEGORY MANAGER Pulse 102 06/27/2023 12:51 PM SENIOR CATEGORY MANAGER Temperature 37.5 C (99.5 F) 06/27/2023 12:51 PM SENIOR CATEGORY MANAGER Respiratory Rate 18 06/27/2023 12:51 PM SENIOR CATEGORY MANAGER Oxygen Saturation 97% 06/27/2023 12:51 PM SENIOR CATEGORY MANAGER Inhaled Oxygen Concentration - - Weight 83.2 kg (183 lb 8 oz) 06/27/2023 12:51 PM SENIOR CATEGORY MANAGER Height 184.5 cm (6' 0.64) 06/27/2023 12:[address] Body Mass Index 24.45 06/27/2023 12:51 PM SENIOR CATEGORY MANAGER Plan of Treatment Health Maintenance Due [...] patient's age to complete this topic Insurance [employer] [place] [id number] Care Teams Greek Professor Relationship Specialty Start Date End Date Jackelyn Granger MD [address] [place] [address] PCP - General 10/28/24
[2025-01-15] MEDS: 0.9 % SODIUM CHLORIDE 1000 ml 1,000 ML IV (17:30)
--- NOTE | 2025-01-15 17:37 | ED.FEVER ---
HPI - Fever General Time Seen by Provider: 17:37 Date Seen: 01/15/25 Chief Complaint: Chest Pain Stated Complaint: In ER yesterday with Lyme disease, has high fever Time Seen by Provider: 01/15/25 16:51 Source: patient and RN notes reviewed Mode of arrival: ambulatory Limitations: no limitations History of Present Illness HPI Narrative: This 49-year-old male is returning tonight with ongoing fever, up to 102.5? F. I did see him in the ER yesterday, was concerned about a lesion on his right anterior shoulder being an early erythema migrans and potential Lyme or other tick borne pathology. These labs are still pending. He was started on doxycycline. He definitely had a bug bite on his right anterior shoulder, they feel it has gotten larger, it is more sore. He is more sore in the lymph nodes in his right axilla. He is coughing, maybe a little more prominently than yesterday. We had a normal chest x-ray yesterday. He still has some headaches, body aches. He notes that his right hip is feeling more sore now, he thinks maybe from laying around her sleeping on it. It is not really hurting to move it. It just feels sore. I did send them with Sal, he did take some last night as he was having more nausea. He did have some significant heartburn last night but he took Excedrin yesterday morning prior to coming in for his headache. They note that he typically will get heartburn after taking Excedrin. He has no chest pain, no heartburn now. He is not having really any nausea now. He has not eaten much but it has been able to drink Gatorade, he did eat some Jell-O today. Again, no abdominal pain. He has not had any diarrhea but no formed stool, but again not eating much right now. He has no urinary symptoms. 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 He never did find a tick or was never aware of what exactly maybe bit him on his arm. He took the doxycycline in the ER yesterday which was IV, 2 oral doses since discharge. He did get into triaged and felt like he was going to pass out, he felt it coming, actually did pass out briefly, this was witnessed, no seizure. MD elicited complaint: fever Related Data Home Medications ?Medication ?Instructions ?Recorded ?Confirmed gabapentin 400 mg capsule 400 mg PO TID 09/12/23 01/15/25 multivitamin 1 tab PO QDAY 09/17/24 01/15/25 mirtazapine 15 mg tablet 7.5 mg PO DAILY 01/14/25 01/15/25 sildenafil 50 mg tablet 50 - 100 mg PO DAILY PRN 01/14/25 01/15/25 Previous Rx's ?Medication ?Instructions ?Recorded bupropion HCl 150 mg 24 hr tablet, 150 mg PO QAM #90 tabs 09/17/24 extended release Held on 01/14/25. Instructions: weaning down bupropion HCl 300 mg 24 hr tablet, 300 mg PO DAILY #90 tabs 09/17/24 extended release escitalopram oxalate 10 mg tablet 10 mg PO QDAY #90 tabs 09/17/24 fenofibrate nanocrystallized 145 145 mg PO DAILY #90 tabs 09/17/24 mg tablet lisinopril 10 mg tablet 10 mg PO DAILY #90 tabs 09/17/24 atorvastatin 20 mg tablet 20 mg PO QHS #90 tabs 09/29/24 doxycycline hyclate 100 mg tablet 100 mg PO BID #27 tabs 01/14/25 ondansetron 4 mg disintegrating 4 mg PO Q6H PRN nausea and 01/14/25 tablet vomiting #20 tabs Allergies Allergy/AdvReac Type Severity Reaction Status Date / Time erythromycin base Allergy Verified 01/15/25 16:55 Review of Systems Status of ROS Reports: 6 or more systems reviewed and unremarkable except as noted in History and below [facility] Medical History Unexplained weight loss ?R63.4 - Abnormal weight loss (ICD-10) Fatigue ?R53.83 - Other fatigue (ICD-10) Hepatitis ?K75.9 - Inflammatory liver disease, unspecified (ICD-10) 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 ?K70.0 - Alcoholic fatty liver (ICD-10) Alcohol use disorder ?F10.90 - Alcohol use, unspecified, uncomplicated (ICD-10) Weight loss ?R63.4 - Abnormal weight loss (ICD-10) Dizziness ?R42 - Dizziness and giddiness (ICD-10) Brugada syndrome ?I49.8 - Other specified cardiac arrhythmias (ICD-10) Nicotine abuse ?Z72.0 - Tobacco use (ICD-10) Hallucinations ?R44.3 - Hallucinations, unspecified (ICD-10) Diarrhea ?R19.7 - Diarrhea, unspecified (ICD-10) Surgical History History of nasal surgery ?Z98.890 - Other specified postprocedural states (ICD-10) Family History Mother Brugada syndrome Sister Brugada syndrome Father Diabetes High blood pressure Social History Narrative: 47-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 He lives in [place] with his and 2 children ages 16 and 18. He vapes tobacco, 1 vape pen per week. This is approximately equivalent to 5 smoking 5 packs of cigarettes per week. He does not use cannabis or other recreational drugs. Alcohol consumption is daily with a variable amount, at least 5 beers per day up to 8 or 9. He is present in the hospital with his who appears to be very supportive of him getting help for alcohol withdrawal. He is motivated to get help as well. What is your current living situation?: I presently have a place to live Problems where you live: no known problems Problems where you live details: none In the past 12 months, utilities in danger of being shut off: no In past 12 months, lack of transportation kept you from medical appts, meetings, work, or getting things needed for daily living: no In the past 12 mos, have been you worried that your food would run out before you had money to buy more?: never true In the past 12 mos, the food you bought just didn't last and you didn't have money to buy more?: never true Highest level of school completed/degree received: Associate degree: occupational, technical, vocational program Smoking Status: Current some day smoker Do you use any of these nicotine containing products: Vaping Products Smokeless tobacco user details: Vapes Nicotine containing products detail: since October of 2022 Second hand tobacco smoke exposure: No How often do you have a drink containing alcohol: never How often do you have six or more drinks on one occasion: Never AUDIT-C Alcohol total score: 0 Non-prescribed substance use: denies use Caffeine: Yes (2 diet MT dews a day) How often does anyone, including family, friends and others, physically hurt you: never How often does anyone, including family, friends and others, insult or talk down to you: never How often does anyone, including family, friends and others, threaten you with harm: never How often does anyone, including family, friends and others, scream or curse at you: never service: No Exam Const Vital Signs, click to edit/add: Vital Signs - 24 hr 01/15/25 16:49 01/15/25 17:17 01/15/25 17:44 Temperature 102.5 F H Pulse Rate 91 Pulse Rate [Pulse Oximeter] 123 H Respiratory Rate 18 26 H Blood Pressure Blood Pressure [Right Upper Arm] 109/64 Pulse Oximetry 94 93 96 Oxygen Delivery Method Room Air Room Air Oxygen Flow Rate 01/15/25 17:45 01/15/25 17:46 01/15/25 17:47 Temperature Pulse Rate 89 89 89 Pulse Rate [Pulse Oximeter] Respiratory Rate 20 25 H 13 Blood Pressure 101/77 Blood Pressure [Right Upper Arm] Pulse Oximetry 94 93 94 Oxygen Delivery Method Room Air Room Air Room Air Oxygen Flow Rate 01/15/25 18:00 01/15/25 18:01 01/15/25 18:16 Temperature Pulse Rate 88 89 Pulse Rate [Pulse Oximeter] Respiratory Rate 22 15 Blood Pressure 105/69 104/72 Blood Pressure [Right Upper Arm] Pulse Oximetry 94 96 94 Oxygen Delivery Method Nasal Cannula Nasal Cannula Nasal Cannula Oxygen Flow Rate 1 1 1 01/15/25 18:31 01/15/25 18:32 01/15/25 18:46 Temperature 98.1 F Pulse Rate 85 85 86 Pulse Rate [Pulse Oximeter] Respiratory Rate 17 14 20 Blood Pressure 105/78 103/74 Blood Pressure [Right Upper Arm] Pulse Oximetry 94 94 94 Oxygen Delivery Method Nasal Cannula Room Air Nasal Cannula Oxygen Flow Rate 1 1 1 01/15/25 18:47 01/15/25 19:01 01/15/25 19:16 Temperature Pulse Rate 83 82 82 Pulse Rate [Pulse Oximeter] Respiratory Rate 24 19 22 Blood Pressure 111/73 97/69 Blood Pressure [Right Upper Arm] Pulse Oximetry 95 94 95 Oxygen Delivery Method Nasal Cannula Nasal Cannula Oxygen Flow Rate 1 1 01/15/25 19:31 01/15/25 20:01 01/15/25 20:31 Temperature Pulse Rate 82 83 84 Pulse Rate [Pulse Oximeter] Respiratory Rate 12 17 14 Blood Pressure 101/69 101/70 99/70 Blood Pressure [Right Upper Arm] Pulse Oximetry 95 95 94 Oxygen Delivery Method Nasal Cannula Nasal Cannula Nasal Cannula Oxygen Flow Rate 1 1 1 01/15/25 21:01 Temperature 97.9 F Pulse Rate 83 Pulse Rate [Pulse Oximeter] Respiratory Rate 19 Blood Pressure 97/73 Blood Pressure [Right Upper Arm] Pulse Oximetry 94 Oxygen Delivery Method Oxygen Flow Rate Asif is a 49-year-old male that is alert, interactive, no apparent distress, lying in the bed in exam room to. His speech is normal, conversive, able speak in complete sentences. Pupils equal round reactive, sclera clear, extraocular muscles intact, symmetrical facial function. Lungs are clear, good air entry, no wheezing crackles, no tachypnea. Heart rate on monitor right now is in the 80s, he sounds regular, no murmurs, normal S1-S2. Abdomen is soft, nontender, nondistended, no organomegaly. No visible changes over his right hip, right hip full range of motion without any increased pain. He still has this central erythematous lesion with the punctate appearing bug bite, surrounding pinkish erythema in a circular pattern, is larger than yesterday. This is tender but it is not fluctuant, no abscess. He has axillary tenderness, probable adenopathy but is tender enough that is difficult to palpate as well as I did yesterday. Arm is still mobile, neurovascular intact. Documenting provider has reviewed patient's vital signs: yes Course Course ED Course: This patient obviously is still febrile, his presentation still is concerning for tick pathology given the lesion on his right anterior shoulder. He has had no further vomiting, no abdominal pain. Did discuss with them that I was looking at an old CT from last year, he had nonobstructing kidney stones. Definitely want to make sure we have a urinalysis but again he is having absolutely no abdominal pain, no urinary symptoms. Did review with them though that in infected kidney stone really is a surgical emergency and this is something that we cannot miss. My job here today does include trying to think of other etiologies in other potential things that we might be missing. May need to consider imaging. as I was talking to them about potentially consult in our hospitalist Dr. Orozco, nursing staff came in to let me know that his point of care troponin was elevated. Did discuss with them that I really think he needs to see Cardiology, there are some changes on his EKG but with the elevated troponin, this does make me more concerned about ischemic disease that has been exacerbated from his stress of the illness. We need Cardiology and other specialties involved at this point. On discussion of where they would prefer to go, so patient's would prefer [facility]. I will try to talk to them. Reevaluation(s) Time of Reevaluation #1: 20:20 Reevaluation #1: Patient is stable, reviewed that his troponin is stable, actually little lower than the prior 1. He has no chest pain. He is on maintenance fluids, did receive his doxycycline IV. Awaiting transfer to [place]. Consultations Consultation #1: have contacted it [facility] at patient and his 's request. His point of care troponin is elevated at 5. He is not having any active chest pain but EKG is showing some anterior ST segment elevation, compared to his EKG from yesterday, is certainly more prominent. Again he is not having any chest pain now but he does have heartburn that he was having last night. He also had syncopal episode in triage, he knew he was going to pass out. He had no chest pain with that. We are talking to Cardiology at [facility]. Patient did get 324 mg aspirin. This is a complex case, he is febrile, I do still suspect potentially tick pathology. Need to consider sepsis with cellulitis as well. This patient does need multi-specialty care at this point. 6:13 p.m.: Did speak with Cardiology Dr. Carrera from [facility]. He thinks that this is more likely Lyme disease myocarditis or other myocarditis associated with illness. He would trend the troponins. He would not take this patient to label rewinder at this time. If the patient had development of persistent chest pain or concerning ongoing elevation of troponins, other issues, would consider mi a causative from underlying inflammation and label rewinder at that point. This patient indeed is not having any chest pain at this time. He really thinks that this is probably myocarditis. There is bruit got a syndrome in the family as well. He would recommend trending the patient here, echo tomorrow. Trop I from lab is confirmed to be elevated at 7.95. Patient and his are given this update, I have contacted Dr. Orozco our hospitalist. He will come down and evaluate. We can always consider consulting for transfer to [facility] if felt more appropriate. We will have Dr. Orozco way in at this time. Did review with patient and his that his liver enzymes are elevated, kidney function mildly increased from yesterday which certainly can go with illness including tick borne illness, sepsis and other infections. Will discuss with Dr. Orozco, may want to consider CT imaging as part of this workup. We do need urinalysis as well. Patient is receiving his 2 L of fluids. Time: 17:51 Consultation #2: Dr. Orozco did look at this patient's history, did go in and look at the patient's rash on his arm, does agree that this is probably tick-borne illness. He does feel that this patient should go where there is Cardiology and other specialty services. We will try [facility]. Did call them and Dr. Redding will accept on behalf of the hospitalist. Did discuss with patient and his . He last took his doxycycline this morning. Will give him his dose IV tonight prior to transfer. There could be up to 8 hour transfer delay. Time: 18:43 Vital Signs Vital signs: Initial Vital Signs Temperature 102.5 F H 01/15/25 16:49 Temperature Source Oral 01/15/25 16:49 Pulse Rate 123 H 01/15/25 16:49 Respiratory Rate 18 01/15/25 16:49 Blood Pressure 109/64 01/15/25 16:49 Blood Pressure Mean 79 01/15/25 16:49 Pulse Oximetry 94 01/15/25 16:49 Oxygen Delivery Method Room Air 01/15/25 16:49 Vital Signs Temperature 102.5 F H 01/15/25 16:49 Pulse Rate 123 H 01/15/25 16:49 Respiratory Rate 18 01/15/25 16:49 Blood Pressure 109/64 01/15/25 16:49 Pulse Oximetry 94 01/15/25 16:49 Oxygen Delivery Method Room Air 01/15/25 16:49 Temperature 97.9 F 01/15/25 21:01 Pulse Rate 83 01/15/25 21:01 Respiratory Rate 19 01/15/25 21:01 Blood Pressure 97/73 01/15/25 21:01 Pulse Oximetry 94 01/15/25 21:01 Oxygen Delivery Method Nasal Cannula 01/15/25 20:31 Oxygen Flow Rate 1 01/15/25 20:31 Medications Administered Medications: Discontinued Medications Generic Name Dose Route Start Last Admin Trade Name Freq PRN Reason Stop Dose Admin Aspirin 324 mg 01/15/25 18:13 01/15/25 17:50 Aspirin 81 Mg Tab.Chew PO 01/15/25 18:14 324 mg ONCE ONE Administration Sodium Chloride 1,000 mls @ 1,000 mls/hr 01/15/25 17:37 01/15/25 18:15 0.9 % Sodium Chloride 1000 Ml IV 01/15/25 18:36 Infused .Q1H HUMBERTO Infusion Sodium Chloride 1,000 mls @ 500 mls/hr 01/15/25 18:31 01/15/25 21:30 0.9 % Sodium Chloride 1000 Ml IV 01/15/25 20:30 Infused .Q2H HUMBERTO Infusion Doxycycline Hyclate 100 mg/ 100 mls @ 100 mls/hr 01/15/25 19:01 01/15/25 21:00 Sodium Chloride IVPB 01/15/25 19:02 Infused ONCE ONE Infusion Sodium Chloride 1,000 mls @ 125 mls/hr 01/15/25 19:04 01/15/25 19:17 0.9 % Sodium Chloride 1000 Ml IV 125 mls/hr .Q8H HUMBERTO Administration MDM - Fever Lab Data Attestation: I reviewed the patient's lab results. Labs: Lab Results 01/15/25 01/15/25 01/15/25 Range/Units 17:25 17:30 17:39 WBC 7.65 (4.50-11.00) K/uL RBC 4.69 (4.30-5.90) m/uL Hgb 13.9 (13.5-17.5) gm/dL Hct 41.2 (37.0-53.0) % MCV 88 (80-100) fL MCH 30 (26-34) pg MCHC 34 (32-36) gm/dL RDW Coeff of Noah 12.3 (11.5-15.5) % Plt Count 204 (140-440) K/uL Neut % (Auto) 80.6 H (42.0-72.0) % Lymph % (Auto) 10.2 L (20-44) % Clare % (Auto) 8.5 (0.0-11.0) % Eos % (Auto) 0.1 (0.0-7.0) % Baso % (Auto) 0.3 (0.0-3.0) % Neut # (Auto) 6.20 (1.7-7.0) K/uL Lymph # (Auto) 0.80 L (0.90-2.90) K/uL Clare # (Auto) 0.70 (0.00-0.90) K/UL Eos # (Auto) 0.01 (0.00-0.50) K/uL Baso # (Auto) 0.02 (0.00-0.30) K/uL Abs Immat Gran (auto) 0.02 (0.00-0.30) K/uL Imm/Tot Granulo (auto) 0.3 % INR 1.11 H (0.91-1.10) VBG pH 7.469 H (7.32-7.43) VBG pCO2 32 L (40-50) mmHG VBG pO2 61.6 H (25-47) mmHG VBG HCO3 23 (21-28) mmol/L Sodium 133 L (135-149) mmol/L Potassium 3.7 (3.6-5.1) mmol/L Chloride 99 (96-114) mmol/L Carbon Dioxide 22 (20-32) mmol/L Anion Gap 12 (7-15) mEq/L BUN 16 (5-24) mg/dL Creatinine 1.6 H (0.5-1.5) mg/dL Estimated Creat Clear 61.97 Estimated GFR 53 ml/min Glucose 131 H (60-115) mg/dL Lactate 1.3 (0.5-1.9) mmol/L Calcium 9.2 (8.4-10.6) mg/dL Total Bilirubin 0.6 (0.1-1.5) mg/dL AST 179 H (12-35) U/L ALT 97 H (4-50) U/L Alkaline Phosphatase 94 (40-150) U/L Troponin I 7.95 H* (0.01-0.04) ng/mL C-Reactive Protein 16.5 H (0.5-1.0) mg/dL NT-Pro-B Natriuret Pep 1900 H (See Note) pg/mL Total Protein 7.9 (6.0-8.3) g/dL Albumin 4.7 (3.3-5.0) g/dL Procalcitonin 0.56 H (<0.50) ng/mL Urine Color (Yellow) Urine Appearance (Clear) Urine pH (5.0-8.5) Ur Specific [place] (1.000-1.030) Urine Protein (Negative) Urine Glucose (UA) (Negative) Urine Ketones (Negative) Urine Blood (Negative) Urine Nitrite (Negative) Urine Bilirubin (Negative) Urine Urobilinogen (0.2-1.0) Ur Leukocyte Esterase (Negative) Urine RBC (0-2) Urine WBC (0-5) Ur Squamous Epith Cells (None-Few) Urine Bacteria (None) SARS-CoV-2 (PCR) Negative SARS-CoV-2 (Negative) Influenza Type A (PCR) Negative PCR FLU A (Negative) Influenza Type B (PCR) Negative PCR FLU B (Negative) RSV (PCR) Negative PCR RSV (Negative) Lab Acknowledgement Test Added POC Troponin I 5.06 H (0.01-0.04) ng/ml 01/15/25 01/15/25 Range/Units 19:25 20:10 WBC (4.50-11.00) K/uL RBC (4.30-5.90) m/uL Hgb (13.5-17.5) gm/dL Hct (37.0-53.0) % MCV (80-100) fL MCH (26-34) pg MCHC (32-36) gm/dL RDW Coeff of Noah (11.5-15.5) % Plt Count (140-440) K/uL Neut % (Auto) (42.0-72.0) % Lymph % (Auto) (20-44) % Clare % (Auto) (0.0-11.0) % Eos % (Auto) (0.0-7.0) % Baso % (Auto) (0.0-3.0) % Neut # (Auto) (1.7-7.0) K/uL Lymph # (Auto) (0.90-2.90) K/uL Clare # (Auto) (0.00-0.90) K/UL Eos # (Auto) (0.00-0.50) K/uL Baso # (Auto) (0.00-0.30) K/uL Abs Immat Gran (auto) (0.00-0.30) K/uL Imm/Tot Granulo (auto) % INR (0.91-1.10) VBG pH (7.32-7.43) VBG pCO2 (40-50) mmHG VBG pO2 (25-47) mmHG VBG HCO3 (21-28) mmol/L Sodium (135-149) mmol/L Potassium (3.6-5.1) mmol/L Chloride (96-114) mmol/L Carbon Dioxide (20-32) mmol/L Anion Gap (7-15) mEq/L BUN (5-24) mg/dL Creatinine (0.5-1.5) mg/dL Estimated Creat Clear Estimated GFR ml/min Glucose (60-115) mg/dL Lactate (0.5-1.9) mmol/L Calcium (8.4-10.6) mg/dL Total Bilirubin (0.1-1.5) mg/dL AST (12-35) U/L ALT (4-50) U/L Alkaline Phosphatase (40-150) U/L Troponin I 6.76 H* (0.01-0.04) ng/mL C-Reactive Protein (0.5-1.0) mg/dL NT-Pro-B Natriuret Pep (See Note) pg/mL Total Protein (6.0-8.3) g/dL Albumin (3.3-5.0) g/dL Procalcitonin (<0.50) ng/mL Urine Color Yellow (Yellow) Urine Appearance Clear (Clear) Urine pH 6.0 (5.0-8.5) Ur Specific [place] 1.015 (1.000-1.030) Urine Protein 1+ A (Negative) Urine Glucose (UA) Negative (Negative) Urine Ketones Negative (Negative) Urine Blood Negative (Negative) Urine Nitrite Negative (Negative) Urine Bilirubin Negative (Negative) Urine Urobilinogen 0.2 (0.2-1.0) Ur Leukocyte Esterase Negative (Negative) Urine RBC 0-2 (0-2) Urine WBC 0-2 (0-5) Ur Squamous Epith Cells Few (None-Few) Urine Bacteria None (None) SARS-CoV-2 (PCR) (Negative) Influenza Type A (PCR) (Negative) Influenza Type B (PCR) (Negative) RSV (PCR) (Negative) Lab Acknowledgement POC Troponin I (0.01-0.04) ng/ml Imaging Data Chest x-ray: Attestation: I have reviewed the pertinent imaging results. Radiologist's impression: Patient: TIMOTHY LEMUS Facility:?[facility] RIS Patient ID:?[id number] Site Patient ID:?[id number]. Site :?[id number] Study:?XRay-Chest 1V PORTABLE-01/15/2025 6:23:17 PM Ordering Physician:?Regina Saunders Final Report: INDICATION: Cough, fever, tick bite yesterday TECHNIQUE: Chest 1 view COMPARISON: 01/14/2025 FINDINGS: Cardiovasculature and mediastinum: Heart size is normal. Unremarkable mediastinum. Increased prominence of the right perihilar vessels Lungs and pleural spaces: Lungs are clear. No sign of infiltrate or mass. No sign of pleural effusion. No pneumothorax. Bones and soft tissues: No significant findings. IMPRESSION: Increased prominence of the right perihilar vessels may suggest pulmonary venous congestion. No focal consolidation. Dictated by Cyn Pierre MD @ 01/15/2025 6:50:01 PM (Electronic Signature) ECG Data Attestation: I personally reviewed and interpreted this ECG as follows: (Normal sinus rhythm, 87 beats per minute. He does have ST elevation in V2, mildly V3. Did compared to yesterday, looks more prominent.) ECG interpretation date: 01/15/25 ECG interpretation time: 17:39 Prior ECG tracings: available for review Interpretation: Did repeat an EKG at 6:58 p.m. showing normal sinus rhythm, 80 beats per minute. He does have the ST elevation that really looks isolated to lead V2. Note family history of Brugada syndrome for this patient. Patient remains asymptomatic. Discharge Plan Discharge Clinical Impression: Erythema migrans (Lyme disease), Myocarditis, Elevated liver enzymes, Creatinine elevation Patient Disposition: Xfer [facility] Discharge Location: [facility] Prescriptions: No Action multivitamin Tablet 1 tab PO QDAY bupropion HCl 300 mg tablet extended release 24 hr 300 mg PO DAILY Qty: 90 3RF bupropion HCl 150 mg tablet extended release 24 hr 150 mg PO QAM Qty: 90 3RF escitalopram oxalate 10 mg tablet 10 mg PO QDAY Qty: 90 3RF fenofibrate nanocrystallized 145 mg tablet 145 mg PO DAILY Qty: 90 3RF lisinopril 10 mg tablet 10 mg PO DAILY Qty: 90 3RF gabapentin 400 mg capsule 400 mg PO TID sildenafil 50 mg tablet 50 - 100 mg PO DAILY PRN mirtazapine 15 mg tablet 7.5 mg PO DAILY ondansetron 4 mg tablet,disintegrating 4 mg PO Q6H PRN (Reason: nausea and vomiting) Qty: 20 0RF doxycycline hyclate 100 mg tablet 100 mg PO BID Qty: 27 0RF atorvastatin 20 mg tablet 20 mg PO QHS Qty: 90 3RF Stand Alone Forms: [facility] Info Instructions
[2025-01-15 17:38] LABS: HCO3 VBG 23 mmol/L (21-28); Lactate* 1.3 mmol/L (0.5-1.9); PCO2 VBG 32 mmHG (40-50); PO2 VBG 61.6 mmHG (25-47); pH VBG 7.469 (7.32-7.43)
[2025-01-15 17:39] LABS: Basophils Absolute Auto 0.02 K/uL (0.00-0.30); Basophils Percent Auto 0.3 % (0.0-3.0); Eosinophils Absolute Auto 0.01 K/uL (0.00-0.50); Eosinophils Percent Auto 0.1 % (0.0-7.0); Hematocrit 41.2 % (37.0-53.0); Hemoglobin* 13.9 gm/dL (13.5-17.5); Immature Granulocytes Abs Auto 0.02 K/uL (0.00-0.30); Immature Granulocytes Pct Auto 0.3 %; Lymphocytes Percent Auto 10.2 % (20-44); Mean Corpuscular HGB Conc 34 gm/dL (32-36); Mean Corpuscular Hemoglobin 30 pg (26-34); Mean Corpuscular Volume 88 fL (80-100); Monocytes Percent Auto 8.5 % (0.0-11.0); Neutrophils Percent Auto 80.6 % (42.0-72.0); Platelet Count* 204 K/uL (140-440); RDW Coefficient of Variation % 12.3 % (11.5-15.5); Red Blood Count 4.69 m/uL (4.30-5.90); White Blood Count* 7.65 K/uL (4.50-11.00)
[2025-01-15] MEDS: ASPIRIN 81 MG TAB.CHEW 324 MG PO (17:50)
[2025-01-15 17:52] LABS: Slide Review Reflex No
[2025-01-15 17:53] LABS: Albumin* 4.7 g/dL (3.3-5.0); Chloride* 99 mmol/L (96-114); Sodium* 133 mmol/L (135-149)
[2025-01-15 17:54] LABS: Potassium* 3.7 mmol/L (3.6-5.1)
[2025-01-15 17:56] LABS: Blood Urea Nitrogen* 16 mg/dL (5-24); Creatinine* 1.6 mg/dL (0.5-1.5); Est. Creatinine Clearance* 61.97; Estimated Glomerular Filt Rate 53 ml/min
[2025-01-15 17:57] LABS: Alanine Aminotransferase* 97 U/L (4-50); Alkaline Phosphatase* 94 U/L (40-150); Anion Gap 12 mEq/L (7-15); Aspartate Amino Transferase* 179 U/L (12-35); Bilirubin Total* 0.6 mg/dL (0.1-1.5); Calcium* 9.2 mg/dL (8.4-10.6); Carbon Dioxide* 22 mmol/L (20-32); Glucose* 131 mg/dL (60-115); Total Protein* 7.9 g/dL (6.0-8.3)
--- NOTE | 2025-01-15 18:13 | CRLHL7_ITS ---
For Patients: As a result of the Century Cures Act, medical imaging exams and procedure reports are released immediately into your electronic medical record. You may view this report before your referring provider. If you have questions, please contact your health care provider. INDICATION: Cough, fever, tick bite yesterday TECHNIQUE: Chest 1 view COMPARISON: 01/14/2025 FINDINGS: Cardiovasculature and mediastinum: Heart size is normal. Unremarkable mediastinum. Increased prominence of the right perihilar vessels Lungs and pleural spaces: Lungs are clear. No sign of infiltrate or mass. No sign of pleural effusion. No pneumothorax. Bones and soft tissues: No significant findings. IMPRESSION: Increased prominence of the right perihilar vessels may suggest pulmonary venous congestion. No focal consolidation. Dictated by Cyn Pierre MD @ 01/15/2025 6:50:01 PM (Electronically Signed)
[2025-01-15 18:14] LABS: Procalcitonin* 0.56 ng/mL (<0.50)
[2025-01-15 18:15] LABS: C Reactive Protein* 16.5 mg/dL (0.5-1.0); Troponin I* 7.95 ng/mL (0.01-0.04)
[2025-01-15 18:21] LABS: PCR FLU A Negative PCR FLU A (Negative); PCR FLU B Negative PCR FLU B (Negative); PCR RSV Negative PCR RSV (Negative); SARS PCR* Negative SARS-CoV-2 (Negative)
[2025-01-15 18:37] LABS: INR 1.11 (0.91-1.10); Prothrombin Time 15.1 Seconds
[2025-01-15] MEDS: 0.9 % SODIUM CHLORIDE 1000 ml 1,000 ML 500 ML IV (18:40)
[2025-01-15 18:50] LABS: NT Pro B Type NatriureticPept* 1900 pg/mL (See Note)
[2025-01-15 18:53] LABS: Troponin, Point-of-Care* 5.06 ng/ml (0.01-0.04)
[2025-01-15] MEDS: 0.9 % SODIUM CHLORIDE 1000 ml 1,000 ML 125 ML IV (19:17)
[2025-01-15] MEDS: DOXYCYCLINE HYCLATE 100 MG in 0.9 % SODIUM CHLORIDE Mini-bag 100 ML IVPB (19:59)
[2025-01-15 20:02] LABS: Troponin I* 6.76 ng/mL (0.01-0.04)
[2025-01-15 20:18] LABS: Appearance Urine Clear (Clear); Bilirubin Urine Negative (Negative); Blood Urine Negative (Negative); Color Urine Yellow (Yellow); Glucose Urine Negative (Negative); Ketones Urine Negative (Negative); Leukocyte Esterase Urine Negative (Negative); Nitrite Urine Negative (Negative); Protein Urine 1+ (Negative); Specific Gravity Urine 1.015 (1.000-1.030); Urobilinogen Urine 0.2 (0.2-1.0)
[2025-01-15 20:43] LABS: RBC Urine 0-2 (0-2); Squamous Epithelial Cell Urine Few (None-Few); WBC Urine 0-2 (0-5)
== END 2025-01-15 21:40 | disposition short-term general hospital (02) ==
PROVIDERS: Emergency Provider Family Medicine; PCP Family Medicine
DX: A69.20 Lyme disease, unspecified (principal); I51.4 Myocarditis, unspecified; R74.01 Elevation of levels of liver transaminase levels
CPT/HCPCS: 36415; 71045; 80053; 81001; 82803; 83605; 83880; 84145; 84484; 85025; 85610; 86140; 87040; 87631; 93005; 94761; 96365; 99285; A0425; A0427; A9270; J7030

== ENCOUNTER 2025-01-15 21:29 | Outpatient (CLI) | payer OTHER, SELFPAY ==
--- OUTSIDE RECORDS SUMMARY | 2025-01-19 00:31 | XMS_ITS | Clinical Summary ---
Author Organization [facility] Address [address], [place] [address] Care Team Providers Care Well Logging Captain Name Role Phone Unavailable Primary Care Provider Unavailabl e Source Comments You are receiving this document as you are listed as the primary care provider,follow-up provider, or the patient has been referred to you for consultation.This is in compliance with the Medicare and[facility] EHR Incentive Program,which states Providers who transition their patient to another setting of careor provider of care or refers their patient to another provider of care shouldprovide summary care record for each transition of care or referral. [employer] Allergies Active Allergy Reactions Criticality Noted Date [...] Comments Blood Pressure 131/90 07/09/2016 2:28 PM EXTRACTOR FILLER Pulse 83 07/09/2016 2:28 PM EXTRACTOR FILLER Temperature 36.7 C (98 F) 07/09/2016 2:28 PM EXTRACTOR FILLER Respiratory Rate 17 07/09/2016 2:28 PM EXTRACTOR FILLER Oxygen Saturation 98% 06/29/2016 9:28 AM EXTRACTOR FILLER Inhaled Oxygen Concentration - - Weight - [...] patient's age to complete this topic Insurance [facility] [place] [address] [facility]
--- OUTSIDE RECORDS SUMMARY | 2025-01-19 00:31 | XMS_ITS | Clinical Summary ---
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 [employer] Gender Identity Not on file Sexual Orientation Not on file Last Filed Vital Signs Vital Sign Reading Time Taken Comments Blood Pressure 144/71 08/11/2012 8:58 AM INSTRUCTOR [employer]UCATION Pulse 66 08/11/2012 8:58 AM INSTRUCTOR [employer]UCATION Temperature 36.5 C (97.7 F) 08/11/2012 7:48 AM INSTRUCTOR [employer] EDUCATION Respiratory Rate 14 08/11/2012 8:58 AM INSTRUCTOR PHYSICAL EDUCATION Oxygen Saturation 98% 08/11/2012 8:58 AM INSTRUCTOR [employer]ICAL EDUCATION Inhaled Oxygen Concentration - - Weight 86.2 kg (190 lb) 08/11/2012 7:48 AM INSTRUCTOR [employer]UCATION Height 180.3 cm (5' 11) 08/11/2012 7:48 AM INSTRUCTOR [employer]UCATION Body Mass Index 26.5 08/11/2012 7:48 AM INSTRUCTOR PHYSICAL EDUCATION Plan of Treatment Not on file Insurance [facility] Commercial Address: [facility] [address] [place] [address]
--- OUTSIDE RECORDS SUMMARY | 2025-01-19 00:31 | XMS_ITS | Clinical Summary ---
Author Organization [facility] Address [address] [place] [address] Care Team Providers Care Needlemaker Name Role Phone Jackelyn Granger MD Primary Care Provider [phone] Allergies Active Allergy Reactions Criticality Noted Date [...] 02/04/2022 Overview (06/27/2023): Diagnosed in 2013 by [facility]. He has an intermittent Brugada pattern. He has no history of syncope. This pattern is also present in his mother and sister. He was seen by Cardiology at that time and was felt to be at very low risk for symptomatic events, less than 1% per year. Hypertriglyceridemia 01/31/2022 Ascending aortic aneurysm 01/31/2022 Encounters Date Type Department Care Team Description 12/01/2024 Telephone 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 Gender Identity Not on file Sexual Orientation Not on file Last Filed Vital Signs Vital Sign Reading Time Taken Comments Blood Pressure 129/84 06/27/2023 12:51 PM SUPPLY TECH Pulse 102 06/27/2023 12:51 PM SUPPLY TECH Temperature 37.5 C (99.5 F) 06/27/2023 12:51 PM SUPPLY TECH Respiratory Rate 18 06/27/2023 12:51 PM SUPPLY TECH Oxygen Saturation 97% 06/27/2023 12:51 PM SUPPLY TECH Inhaled Oxygen Concentration - - Weight 83.2 kg (183 lb 8 oz) 06/27/2023 12:51 PM SUPPLY TECH Height 184.5 cm (6' 0.64) 06/27/2023 12:[address] Body Mass Index 24.45 06/27/2023 12:51 PM SUPPLY TECH Plan of Treatment Health Maintenance Due Date [...] patient's age to complete this topic Insurance [employer] [place] [id number] Care Teams Needlemaker Relationship Specialty Start Date End Date Jackelyn Granger MD [address] [place] [address] PCP - General 10/28/24
== END 2025-01-15 21:30 | disposition home or self-care (01) ==
LOC: AMB 01-18 10:12
PROVIDERS: PCP Family Medicine; Visit Provider Family Medicine
DX: R50.9 Fever, unspecified (principal); R11.2 Nausea with vomiting, unspecified; R21 Rash and other nonspecific skin eruption
CPT/HCPCS: 36415; 71045; 80053; 81001; 82803; 83605; 83880; 84145; 84484; 85025; 85610; 86140; 87040; 87631; 93005; 94761; 96365; 99285; A0425; A0427; A9270; J7030

== ENCOUNTER 2025-02-08 08:30 | Outpatient (RCR) | payer OTHER, SELFPAY ==
[2025-01-19 13:08] VITALS: BP 107/71; PULSE 70; RESP 16; TEMP 36.8; O2SAT 96
[2025-01-19] MEDS: cefTRIAXone 2 GM in 0.9 % SODIUM CHLORIDE Mini-bag 100 ML IVPB (13:38)
[2025-01-19] MEDS: SODIUM CHLORIDE 0.9 % (FLUSH) 10 ML SYRINGE IVF ×2 (13:49→14:22)
--- NOTE | 2025-01-19 13:49 | ONC.NURNOTE ---
Addendum entered by Ruth Red RN 01/19/25 14:25: Spoke with pt's ID care team at [facility]. The MD will call pt later today to discuss further but with the mild nature of the rash, they would like us to proceed as ordered at this time. Original Note: Pt present at [facility] for antibiotics. 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 RN assessed and confirmed presence of rash. Pt has no pain or itching with the rash. No s/s of angioedema. Discussed with Brenda Hogan APRN [employer]EEP MECHANIC who also evaluated pt's rash. Plan is to contact pt's ID provider but continue today due to mild symptoms.
[2025-01-20 11:33] VITALS: BP 106/69; PULSE 78; RESP 17; TEMP 36.3; O2SAT 98
[2025-01-20] MEDS: cefTRIAXone 2 GM in 0.9 % SODIUM CHLORIDE Mini-bag 100 ML IVPB (12:05)
[2025-01-20] MEDS: SODIUM CHLORIDE 0.9 % (FLUSH) 10 ML SYRINGE IVF (12:06)
[2025-01-21 08:55] VITALS: BP 102/71; PULSE 73; RESP 16; TEMP 36.3; O2SAT 96
[2025-01-21] MEDS: SODIUM CHLORIDE 0.9 % (FLUSH) 10 ML SYRINGE IVF ×2 (09:11→09:47)
[2025-01-21] MEDS: cefTRIAXone 2 GM in 0.9 % SODIUM CHLORIDE Mini-bag 100 ML IVPB (09:12)
[2025-01-22 08:27] VITALS: BP 122/82; PULSE 75; TEMP 36.2; O2SAT 98
[2025-01-22] MEDS: cefTRIAXone 2 GM in 0.9 % SODIUM CHLORIDE Mini-bag 100 ML IVPB (08:58)
[2025-01-22] MEDS: SODIUM CHLORIDE 0.9 % (FLUSH) 10 ML SYRINGE IVF ×2 (08:58→09:35)
[2025-01-23] MEDS: cefTRIAXone 2 GM in 0.9 % SODIUM CHLORIDE Mini-bag 100 ML IVPB (10:09)
[2025-01-23 10:15] VITALS: BP 108/76; PULSE 78; RESP 18; TEMP 36.7; O2SAT 96
[2025-01-23 10:43] VITALS: BP 108/73; PULSE 67; RESP 18; TEMP 36.7; O2SAT 96
--- NOTE | 2025-01-23 11:37 | PC.NURSE ---
Antibiotic infusion complete, no reactions noted.
[2025-01-24 09:57] VITALS: BP 110/76; PULSE 75; RESP 18; TEMP 36.7; O2SAT 97
[2025-01-24] MEDS: cefTRIAXone 2 GM in 0.9 % SODIUM CHLORIDE Mini-bag 100 ML IVPB (10:00)
[2025-01-24 10:35] VITALS: PULSE 74; RESP 18; O2SAT 96
--- NOTE | 2025-01-24 10:36 | PC.NURSE ---
Transfusion complete, no reactions noted.
[2025-01-25 08:28] VITALS: BP 106/71; PULSE 68; RESP 12; TEMP 36.4; O2SAT 96
[2025-01-25] MEDS: SODIUM CHLORIDE 0.9 % (FLUSH) 10 ML SYRINGE IVF ×2 (08:56→09:32)
[2025-01-25] MEDS: cefTRIAXone 2 GM in 0.9 % SODIUM CHLORIDE Mini-bag 100 ML IVPB (08:57)
[2025-01-26 08:44] VITALS: BP 106/72; PULSE 67; RESP 16; TEMP 36.1; O2SAT 96
[2025-01-26] MEDS: SODIUM CHLORIDE 0.9 % (FLUSH) 10 ML SYRINGE IVF ×2 (08:51→09:27)
[2025-01-26] MEDS: cefTRIAXone 2 GM in 0.9 % SODIUM CHLORIDE Mini-bag 100 ML IVPB (08:53)
[2025-01-26 09:02] LABS: Hematocrit* 41.8 % (37.0-53.0); Hemoglobin* 13.3 gm/dL (13.5-17.5); Immature Granulocytes Abs Auto 0.30 K/uL (0.00-0.30); Immature Granulocytes Pct Auto 3.8 %; Lymphocytes Absolute Auto 1.66 K/uL (0.90-2.90); Mean Corpuscular HGB Conc 32 gm/dL (32-36); Mean Corpuscular Hemoglobin 30 pg (26-34); Mean Corpuscular Volume 93 fL (80-100); RDW Coefficient of Variation % 13.4 % (11.5-15.5); Red Blood Count* 4.50 m/uL (4.30-5.90); White Blood Count* 7.92 K/uL (4.50-11.00)
[2025-01-26 09:07] LABS: Slide Review Reflex Yes
[2025-01-26 09:22] LABS: Albumin* 4.6 g/dL (3.3-5.0); Chloride* 102 mmol/L (96-114)
[2025-01-26 09:23] LABS: Potassium* 4.6 mmol/L (3.6-5.1); Sodium* 139 mmol/L (135-149)
[2025-01-26 09:25] LABS: Alanine Aminotransferase* 79 U/L (4-50); Aspartate Amino Transferase* 41 U/L (12-35); Blood Urea Nitrogen* 13 mg/dL (5-24); Creatinine* 1.0 mg/dL (0.5-1.5); Estimated Glomerular Filt Rate 93 ml/min
[2025-01-26 09:26] LABS: Alkaline Phosphatase* 82 U/L (40-150); Anion Gap 9 mEq/L (7-15); Bilirubin Total* 0.4 mg/dL (0.1-1.5); Calcium* 9.6 mg/dL (8.4-10.6); Carbon Dioxide* 28 mmol/L (20-32); Glucose* 124 mg/dL (60-115); Total Protein* 7.8 g/dL (6.0-8.3)
[2025-01-26 09:58] LABS: Slide Review Acceptable Review (Acceptable)
[2025-01-27 08:24] VITALS: BP 114/74; PULSE 67; RESP 16; TEMP 36.4; O2SAT 97
[2025-01-27] MEDS: cefTRIAXone 2 GM in 0.9 % SODIUM CHLORIDE Mini-bag 100 ML IVPB (09:04)
[2025-01-27] MEDS: SODIUM CHLORIDE 0.9 % (FLUSH) 10 ML SYRINGE IVF ×2 (09:05→09:42)
[2025-01-28 08:20] VITALS: BP 107/69; PULSE 81; TEMP 36.4; O2SAT 96
[2025-01-28] MEDS: SODIUM CHLORIDE 0.9 % (FLUSH) 10 ML SYRINGE IVF ×2 (08:29→09:04)
[2025-01-28] MEDS: cefTRIAXone 2 GM in 0.9 % SODIUM CHLORIDE Mini-bag 100 ML IVPB (08:29)
[2025-01-29 09:56] VITALS: BP 102/6; PULSE 79; RESP 16; TEMP 36.7; O2SAT 96
[2025-01-29] MEDS: cefTRIAXone 2 GM in 0.9 % SODIUM CHLORIDE Mini-bag 100 ML IVPB (09:57)
[2025-01-29] MEDS: SODIUM CHLORIDE 0.9 % (FLUSH) 10 ML SYRINGE IVF (09:58)
[2025-01-30 09:54] VITALS: BP 99/66; PULSE 81; RESP 16; TEMP 36.4; O2SAT 97
[2025-01-30] MEDS: SODIUM CHLORIDE 0.9 % (FLUSH) 10 ML SYRINGE IVF (10:00)
[2025-01-30] MEDS: cefTRIAXone 2 GM in 0.9 % SODIUM CHLORIDE Mini-bag 100 ML IVPB (10:00)
[2025-01-31 09:53] VITALS: BP 114/68; PULSE 78; RESP 16; TEMP 36.1; O2SAT 100
[2025-01-31] MEDS: cefTRIAXone 2 GM in 0.9 % SODIUM CHLORIDE Mini-bag 100 ML IVPB (09:55)
[2025-01-31] MEDS: SODIUM CHLORIDE 0.9 % (FLUSH) 10 ML SYRINGE IVF (09:56)
[2025-02-01 08:29] VITALS: BP 117/74; PULSE 72; TEMP 36.2; O2SAT 98
[2025-02-01] MEDS: SODIUM CHLORIDE 0.9 % (FLUSH) 10 ML SYRINGE IVF ×2 (08:46→09:18)
[2025-02-01] MEDS: cefTRIAXone 2 GM in 0.9 % SODIUM CHLORIDE Mini-bag 100 ML IVPB (08:46)
[2025-02-02 08:29] VITALS: BP 92/45; PULSE 76; RESP 16; TEMP 36.6; O2SAT 95
[2025-02-02 08:52] LABS: Hematocrit* 40.5 % (37.0-53.0); Hemoglobin* 13.0 gm/dL (13.5-17.5); Immature Granulocytes Pct Auto 0.7 %; Mean Corpuscular HGB Conc 32 gm/dL (32-36); Mean Corpuscular Hemoglobin 29 pg (26-34); Mean Corpuscular Volume 92 fL (80-100); RDW Coefficient of Variation % 12.8 % (11.5-15.5); Red Blood Count* 4.42 m/uL (4.30-5.90); White Blood Count* 4.28 K/uL (4.50-11.00)
[2025-02-02] MEDS: cefTRIAXone 2 GM in 0.9 % SODIUM CHLORIDE Mini-bag 100 ML IVPB (08:52)
[2025-02-02] MEDS: SODIUM CHLORIDE 0.9 % (FLUSH) 10 ML SYRINGE IVF (08:53)
[2025-02-02 08:54] LABS: Immature Granulocytes Abs Auto 0.00 K/uL (0.00-0.30); Lymphocytes Absolute Auto 1.30 K/uL (0.90-2.90); Slide Review Reflex No
[2025-02-02 09:08] LABS: Albumin* 4.8 g/dL (3.3-5.0); Chloride* 100 mmol/L (96-114); Potassium* 4.2 mmol/L (3.6-5.1); Sodium* 138 mmol/L (135-149)
[2025-02-02 09:11] LABS: Alanine Aminotransferase* 45 U/L (4-50); Alkaline Phosphatase* 68 U/L (40-150); Anion Gap 10 mEq/L (7-15); Aspartate Amino Transferase* 41 U/L (12-35); Bilirubin Total* 0.4 mg/dL (0.1-1.5); Blood Urea Nitrogen* 18 mg/dL (5-24); Carbon Dioxide* 28 mmol/L (20-32); Creatinine* 1.1 mg/dL (0.5-1.5); Estimated Glomerular Filt Rate 83 ml/min
[2025-02-02 09:12] LABS: Calcium* 9.7 mg/dL (8.4-10.6); Glucose* 113 mg/dL (60-115); Total Protein* 7.7 g/dL (6.0-8.3)
[2025-02-03 08:23] VITALS: BP 121/77; PULSE 73; RESP 16; TEMP 36.6; O2SAT 98
[2025-02-03] MEDS: SODIUM CHLORIDE 0.9 % (FLUSH) 10 ML SYRINGE IVF ×2 (08:31→09:03)
[2025-02-03] MEDS: cefTRIAXone 2 GM in 0.9 % SODIUM CHLORIDE Mini-bag 100 ML IVPB (08:31)
[2025-02-04 08:27] VITALS: BP 106/73; PULSE 71; RESP 17; TEMP 36.5; O2SAT 97
[2025-02-04] MEDS: cefTRIAXone 2 GM in 0.9 % SODIUM CHLORIDE Mini-bag 100 ML IVPB (08:48)
[2025-02-04] MEDS: SODIUM CHLORIDE 0.9 % (FLUSH) 10 ML SYRINGE IVF ×2 (08:48→09:21)
[2025-02-05 08:18] VITALS: BP 106/70; PULSE 65; RESP 17; TEMP 36.6; O2SAT 96
[2025-02-05] MEDS: cefTRIAXone 2 GM in 0.9 % SODIUM CHLORIDE Mini-bag 100 ML IVPB (08:33)
[2025-02-05] MEDS: SODIUM CHLORIDE 0.9 % (FLUSH) 10 ML SYRINGE IVF (08:34)
[2025-02-06] MEDS: cefTRIAXone 2 GM in 0.9 % SODIUM CHLORIDE Mini-bag 100 ML IVPB (10:06)
[2025-02-06] MEDS: SODIUM CHLORIDE 0.9 % (FLUSH) 10 ML SYRINGE IVF (10:07)
[2025-02-06 10:13] VITALS: BP 112/84; PULSE 66; RESP 16; TEMP 36.4; O2SAT 97
[2025-02-07] MEDS: cefTRIAXone 2 GM in 0.9 % SODIUM CHLORIDE Mini-bag 100 ML IVPB (09:59)
[2025-02-07] MEDS: SODIUM CHLORIDE 0.9 % (FLUSH) 10 ML SYRINGE IVF (10:00)
[2025-02-07 10:35] VITALS: BP 123/74; PULSE 68; RESP 16; TEMP 36.5; O2SAT 97
[2025-02-08 08:18] VITALS: BP 128/85; PULSE 70; RESP 17; TEMP 36.1; O2SAT 97
== END 2025-07-18 23:59 | disposition home or self-care (01) ==
LOC: CCIC 08:30
PROVIDERS: PCP Family Medicine; Referring Provider Family Medicine; Visit Provider Clinical Nurse Specialist
DX: A69.29 Other conditions associated with Lyme disease (principal)
CPT/HCPCS: 36415; 36592; 80053; 85025; 86140; 96365; 99211; G0463; A4221; J0696; J7050

== ENCOUNTER 2025-04-12 16:01 | Outpatient (CLI) | payer OTHER, SELFPAY | END 2025-04-12 16:02 | disposition home or self-care (01) | LOC: NFLDREF 16:02 | PROVIDERS: PCP Family Medicine; Visit Provider Internal Medicine | DX: I10 Essential (primary) hypertension (principal); R50.9 Fever, unspecified | CPT/HCPCS: 80053 ==